=== PATIENT | male | born 1940 | race Caucasian/White ===

== ENCOUNTER 2021-06-27 07:21 | Inpatient (IN) ==
--- NOTE | 2021-06-01 15:37 | PAT Medication Instructions ---
Medication Instructions Date of Service June 01, 2021 Home Medications ascorbic acid (vitamin C) 1,000 mg tablet (Vitamin C) 1 g PO QAM atorvastatin 10 mg tablet 5 mg PO Q OTHER DAY baclofen 10 mg tablet 10 mg PO TID cholecalciferol (vitamin D3) 50 mcg (2,000 unit) tablet (Vitamin D3) 50 mcg PO QAM multivitamin 1 tab PO QAM omega-3 fatty acids 1,000 mg PO QAM pantoprazole 40 mg tablet,delayed release 40 mg PO DAILY PRN PreserVision AREDS-2) 1 tab PO AMPM STOP taking 2 weeks before surgery (or as soon as possible if surgery is within 2 weeks) omega-3 fatty acids 1,000 mg PO QAM PreserVision AREDS-2) 1 tab PO AMPM DO NOT take the morning of surgery ascorbic acid (vitamin C) 1,000 mg tablet (Vitamin C) 1 g PO QAM baclofen 10 mg tablet 10 mg PO TID cholecalciferol (vitamin D3) 50 mcg (2,000 unit) tablet (Vitamin D3) 50 mcg PO QAM multivitamin 1 tab PO QAM Take morning of surgery With a small sip of water, OTHERWISE NOTHING TO EAT OR DRINK AFTER MIDNIGHT: atorvastatin 10 mg tablet 5 mg PO Q OTHER DAY (if scheduled to take day of surgery) pantoprazole 40 mg tablet,delayed release 40 mg PO DAILY PRN (if needed) Take evening before surgery baclofen 10 mg tablet 10 mg PO TID pantoprazole 40 mg tablet,delayed release 40 mg PO DAILY PRN (if needed) Other Notes If you have any questions please call us at [phone] or [phone] or [phone] or [phone]
--- NOTE | 2021-06-06 14:50 | Anesthesiology Consultation ---
Date of Service June 06, 2021 Assessment & Plan (1) Encounter for pre-operative examination: Chart Review Chart Review: Acceptable Risk for Surgery (pending surgeon ordered PCP clearance (06/13), cardio clearance (06/14), and preop Covid testing results ) and Patient seen in Pre Admission Testing - Awaiting surgeon ordered PCP clearance (06/13/21) and cardiac clearance (06/14/21) Per PAT appt on 06/01/21, patient denies any recent travel or large group activities. No known Covid positive exposures or Covid related symptoms. No known Covid infection in the past 90 days. Pt is vaccinated for Covid Preop Covid testing scheduled 06/23/21 = will await results. Educated on importance of self quarantining, social distancing and wearing mask in public for the patient one week prior to surgery and after Covid testing done Teaching & Discussion Pre-Anesthesia Teaching/Discussion Notes: Instructed NPO after midnight before surgery,except medications with 15 cc of water. Medication instructions provided according to the PAT guidelines. History Surgery Operation Date: 06/27/21 07:45 Proposed Procedures p L2-S1 Decompression and Fusion, L3-L4 Hardware Removal, Spinal Cord Monitoring - Todd Mckeon DO Height/Weight Height: 5 ft 11 in Weight: 80 kg Allergies Allergy/AdvReac Type Severity Reaction Status Date / Time No Known Allergies Allergy Verified 06/01/21 12:56 Medications Home Medications Medication Instructions Recorded Confirmed Last Taken ascorbic acid (vitamin C) 1,000 mg 1 g PO QAM 06/01/21 06/01/21 Unknown tablet (Vitamin C) atorvastatin 10 mg tablet 5 mg PO Q OTHER DAY 06/01/21 06/01/21 Unknown baclofen 10 mg tablet 10 mg PO TID 06/01/21 06/01/21 Unknown cholecalciferol (vitamin D3) 50 50 mcg PO QAM 06/01/21 06/01/21 Unknown mcg (2,000 unit) tablet (Vitamin D3) multivitamin 1 tab PO QAM 06/01/21 06/01/21 Unknown omega-3 fatty acids 1,000 mg PO QAM 06/01/21 06/01/21 Unknown pantoprazole 40 mg tablet,delayed 40 mg PO DAILY PRN 06/01/21 06/01/21 Unknown release vit C 250 mg-E 90 mg-zinc 40 1 tab PO AMPM 06/01/21 06/01/21 Unknown mg-copper 1 [id number] chew tablet (PreserVision AREDS-2) Past Medical History Medical History Degenerative disc disease GERD (gastroesophageal reflux disease) Well controlled and stable History of Mohs micrographic surgery for skin cancer Hyperlipidemia Kidney stones Passed on own Prostate cancer 10 yrs ago > with seeds for radiation Exercise / Class Metabolic Activity II 4-5 Yardwork/Stairs/Walk up hill (one flight of stairs - no chest pain or SOB ) Past Surgical History Surgical History History of cardiac cath Over 15 yrs ago - no stents or bypass History of cataract surgery bilat History of colonoscopy History of esophagogastroduodenoscopy (EGD) History of lumbar surgery History of tonsillectomy Past Anesthesia History No Hx of Anesthesia Complications and Other (Family history unknown ) History of PONV No Hx of PONV and No Hx of Motion Sickness Social History Smoking Status: Former smoker Do You Dip or Chew Tobacco: No Smoking End Date: 30 yrs or more Hx Alcohol Use: Yes Alcohol type: wine alcohol intake frequency: 0-2 drinks per day (1 glass/wine ) Hx Substance Use: No substance use type: does not use Review of Systems GUIDO- with significant activity - chronic and stable Hx of snoring - no witnessed apnea- no hx of sleep study Patient denies chest pain, shortness of breath at rest, reflux, cough, wheezing, palpitations. No hx of seizures, stroke, PR. No hx of blood clots or blood transfusions Physical Exam VITALS BP 110/66 P 76 TEMP 97.7 SP02 95% RESP 16 Constitutional no acute distress ENMT Mouth: no TMJ clicking Thyromental Distance: > or= 3.5 Finger Breadths (3.5) Mallampati Class: III Partial dentures on top and bottom Neck + limited neck extension (significant ) Respiratory normal respiratory effort; no respiratory distress Auscultation: lungs clear to auscultation bilaterally; no wheezes Cardiovascular Rate/Rhythm: regular rate and regular rhythm Heart Sounds: no murmur Vessels: no carotid bruit Musculoskeletal Spine: no pain with cervical ROM Extremities: extremities normal to inspection Psychiatric Orientation: alert Lab Results Anesthesia Preop Results Results Anesthesia Widget: WBC 7.24 K/uL (4.8-10.8) 06/06/21 Hgb 14.7 g/dL (14.0-18.0) 06/06/21 Hct 43.8 % (42-52) 06/06/21 Plt 177 K/uL (130-400) 06/06/21 Na 139 mmol/L (136-145) 06/06/21 K 4.2 mmol/L (3.5-5.1) 06/06/21 Cl 105 mmol/L (98-107) 06/06/21 CO2 28 mmol/L (21-32) 06/06/21 BUN 20 mg/dl (6-23) 06/06/21 Creat 0.93 mg/dl (0.6-1.4) 06/06/21 Glucose Level 142 mg/dl (70-99(Fasting)) H 06/06/21 PT 11.1 Seconds (9.0-12.0) 06/06/21 PTT 27.3 Seconds (21.0-31.0) 06/06/21 INR 1.0 (0.9-1.1) 06/06/21 Urine Color Dark Yellow 06/06/21 Urine Appearance Clear (Clear) 06/06/21 Urine pH 5.5 (4.5-7.5) 06/06/21 Urine Specific [place] 1.022 (1.000-1.030) 06/06/21 Urine Protein Negative (Negative) 06/06/21 Urine Glucose (UA) Negative (Negative) 06/06/21 Urine Ketones Trace (Negative) H 06/06/21 Urine Blood Negative (Negative) 06/06/21 Urine Nitrite Negative (Negative) 06/06/21 Urine Bilirubin Negative (Negative) 06/06/21 Urine Urobilinogen Negative (Negative) 06/06/21 Urine Leukocyte Esterase Negative (Negative) 06/06/21 Blood Type A Positive 06/06/21 Antibody Screen NEGATIVE 06/06/21 Testing Electrocardiogram Date: 06/06/21 Findings: + NSR @ (81bpm) RBBB. 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 When compare to EKG from September 04, 2011- no significant change was found per cardio. Chest X-Ray Date: 06/06/21 Findings: + NAD Mild chronic interstitial coarsening. Echocardiogram Date: 11/12/19 EF: 55-60% LV Function: normal Other Findings: no LVH Mitral annual calcification. Mild TR.
[~2021-06-27 07:21] MED LIST: ACETAMINOPHEN 500 MG TAB PO SCH; CeleBREX 200 MG CAP PO SCH; GABAPENTIN 300 MG CAP PO SCH; LR 15ML/HR IV SCH; ceFAZolin 2000MG 2,000 MG/15 ML SYR IV SCH
[2021-06-27] MEDS ORDERED: fentaNYL citrate 100 MCG/2 ML VIAL ONE ×2 (08:32→12:53)
[2021-06-27] MEDS ORDERED: ONDANSETRON INJ 2 MG/ML 2 ML VIAL IV PRN ×2 (08:51→15:13)
[2021-06-27] MEDS ORDERED: ePHEDrine sulfate 50 MG/ML AMP IV PRN (08:51)
[2021-06-27] MEDS ORDERED: ATROPINE SULFATE 0.1 MG/ML 10ML SYR IV PRN (08:51)
[2021-06-27] MEDS ORDERED: PROMETHAZINE HCL 6.25 MG in SODIUM CHLORIDE 0.9% 50 ML IV PRN (08:51)
--- NOTE | 2021-06-27 09:09 | History & Physical Bridge Note ---
Date of Service June 27, 2021 History & Physical Bridge Note I have examined the patient, reviewed the History & Physical and in the interval since the performance of the History & Physical I have noted the following changes of clinical significance: no changes noted
--- NOTE | 2021-06-27 09:10 | History & Physical Report ---
Date of Service June 27, 2021 Assessment & Plan (1) Neurogenic claudication due to lumbar spinal stenosis: Plan: L2-S1 decompression and fusion, hardware removal L3-L4 History of Present Illness Chief Complaint: Back and bilateral leg pain Primary Care Provider: Keith Cai This is an 81-year-old male who presents chronic persistent back and bilateral leg pain. Failing course of nonoperative care is here for surgical invention. Allergies Allergy/AdvReac Type Severity Reaction Status Date / Time No Known Allergies Allergy Verified 06/27/21 07:46 Home Medications Medication Instructions Recorded Confirmed Type ascorbic acid (vitamin C) 1,000 mg 1 g PO QAM 06/01/21 06/27/21 History tablet (Vitamin C) atorvastatin 10 mg tablet 5 mg PO Q OTHER DAY 06/01/21 06/27/21 History baclofen 10 mg tablet 10 mg PO TID 06/01/21 06/27/21 History cholecalciferol (vitamin D3) 50 50 mcg PO QAM 06/01/21 06/27/21 History mcg (2,000 unit) tablet (Vitamin D3) multivitamin 1 tab PO QAM 06/01/21 06/27/21 History omega-3 fatty acids 1,000 mg PO QAM 06/01/21 06/27/21 History pantoprazole 40 mg tablet,delayed 40 mg PO DAILY PRN 06/01/21 06/27/21 History release vit C 250 mg-E 90 mg-zinc 40 1 tab PO AMPM 06/01/21 06/27/21 History mg-copper 1 [id number] chew tablet (PreserVision AREDS-2) Past Med/Surg History Medical History Degenerative disc disease GERD (gastroesophageal reflux disease) Well controlled and stable History of Mohs micrographic surgery for skin cancer Hyperlipidemia Kidney stones Passed on own Prostate cancer 10 yrs ago > with seeds for radiation Surgical History History of cardiac cath Over 15 yrs ago - no stents or bypass History of cataract surgery bilat History of colonoscopy History of esophagogastroduodenoscopy (EGD) History of lumbar surgery History of tonsillectomy Social History Smoking Status: Former smoker Smoking End Date: 30 yrs or more; Second Hand Exposure: No; Do You Dip or Chew Tobacco: No; Tobacco Cessation Education Requested by Patient: No Hx Alcohol Use: Yes Alcohol type: wine Hx Substance Use: No Preferred Language: Greek Communication Ability: Effective Bicycle Racer Required: No Beliefs That Will Affect Care: None Current Living Situation: Spouse Other Information That Helps Us Care for You: No Feels Safe at Home: Yes Safety Concerns: Feels Safe At This Time Assistive Devices: Glasses and Walker Physical Exam Physical Exam: Patient is alert and oriented Heart regular in rhythm Lungs clear Results & Data ([facility]) Vital Signs (Past 12 Hours) Vital Signs Temp Pulse Resp BP Pulse Ox 06/27/21 07:52 36.5 C 71 18 170/93 H 96
[2021-06-27] MEDS ORDERED: ceFAZolin 330 MG/ML 1 GM VIAL ONE (09:33)
[2021-06-27] MEDS ORDERED: BUPIVACAINE/EPINEPHRINE 0.25% 1:200,000 30 ML VIAL ONE (09:33)
[2021-06-27] MEDS ORDERED: ePHEDrine sulfate 50 MG/ML SYR ONE (10:33)
[2021-06-27] MEDS ORDERED: LIDOCAINE 2% 2 ML VIAL/AMP(20MG/ML) INFIL ONE (10:33)
[2021-06-27] MEDS ORDERED: PROPOFOL IV EMULSION 10 MG/ML 20 ML VIAL IV ONE ×2 (10:33→11:36)
[2021-06-27] MEDS ORDERED: ROCURONIUM BROMIDE 10 MG/ML 5 ML VIAL IV ONE ×2 (10:33→11:36)
[2021-06-27] MEDS ORDERED: FLOSEAL HEMOSTATIC MATRIX 10ML TOP ONE (10:44)
[2021-06-27] MEDS ORDERED: PHENYLEPHRINE HCL 10 MG/ML VIAL ONE (11:36)
[2021-06-27] MEDS ORDERED: ONDANSETRON INJ 2 MG/ML 2 ML VIAL ONE (12:44)
[2021-06-27] MEDS ORDERED: DEXAMETHASONE SOD INJ 4 MG/ML VIAL ONE (12:44)
--- NOTE | 2021-06-27 12:52 | Operative Report ---
Post Operative Report Pre & Post Diagnosis Operation Date: 06/27/21 09:10 Pre-Op Diagnosis: Neurogenic claudication due to lumbar spinal stenosis Post-Op Diagnosis: Neurogenic claudication due to lumbar spinal stenosis I identified the patient and participated in the time-out.: Yes Procedure Operation Date: 06/27/21 09:10 Actual Procedures #1 removal of posterior instrumentation L3-L4. #2 exploration of fusion L3-L4. #3 lumbar decompression with bilateral medial facetectomies and foraminotomies L1-L2, L2-L3, L4-5 and L5-S1. #4 posterior spinal fusion L2-S1. #5 placement posterior segmental instrumentation L2-S1. #6 interbody fusion L4-L5 L5-S1. #7 placement of Spira cage 14 x 26 mm at L4-5 and 13 x 26 mm at L5-S1. #8 placement locally harvested morselized autograft in the posterior gutters. #9 placement infuse collagen sponge, master graft in the posterior gutters and I factor interbody space. Surgeon Todd Mckeon, Paste Thinner Daksha Bedolla Estimated Blood Loss 500 Findings Consistent with Post-Op Diagnosis Specimens None Indications This is an 81-year-old male well-known to me the presents above-mentioned diagnosis after failing course of nonoperative care is here for surgical invention. Description of Procedure Patient was met with identified informed consent obtained. Patient was then taken to the operative suite underwent a patient placed in a prone position on the [place] table top Fabian frame. All bony prominences well-padded eyes inspected to ensure no external pressure placed upon the. This point lumbar spine was prepped and draped in a sterile fashion. Sharp dissection with the assistance of Bovie cautery was performed down to and exposing the lamina transverse processes of L2-L3 L4-5 and sacral ala bilaterally. I then proceeded move the hardware bilaterally at L3-L4 explored the fusion mass noting it to be mature and intact. Then performed a complete laminectomy L5 L4 L2 and partial laminectomy L1 including bilateral medial facetectomies and foraminotomies addressing severe spinal stenosis. Pedicle screws then placed in L2 L3-L4-L5 and S1 levels bilaterally with assistance of fluoroscopy and the appropriate sized matt placed. By way of a transfemoral approach on the right complete discectomy of L5-S1 was performed endplates curetted to subcortically bone and a 13 x 26 mm spiral cage filled with I factor tapped in position. Then proceeded to L4-L5 and again by way of entrance foraminal approach and right complete discectomy performed endplates curetted to subcortical mean bone and a 14 x 26 mm spiral cage filled I factor tapped in position. Rods were then locked in final position bilaterally. The transverse processes of L2-L3 L4-5 and sacral ala burred to subcortical bleeding bone. Infuse collagen sponge master graft local autograft was placed in the posterior gutters. 15 round DONTE drain inserted. Incision was then closed with 1 Vicryl to fascia 2-0 Vicryl subcutaneously and 4 Monocryl for final skin closure. Steri-Strip sterile dressings placed. Patient will continue PACU stable condition. Please note spinal cord monitoring was utilized at the procedure no changes noted. Lastly Daksha Bedolla was present at the entire surgery while the patient positioning complex portions of the surgery and fascial closure. I attest to the content of the Intraoperative Record and any orders documented therein. Any exceptions are noted below.
--- NOTE | 2021-06-27 13:08 | Fluoroscopy Report ---
FL lumbar spine 2-3V HISTORY: 81 years-old Male L2-S1 DECOMP/FUSION L3-L4 HARDWARE REMOVAL COMPARISON: Lumbar spine MRI 09/21/2011 TECHNIQUE: 3 spot fluoroscopic images of the lumbar spine were obtained utilizing 32.7 seconds of flu oroscopy time FINDINGS: Posterior interbody matt and screw fusion hardware is noted extending from L2-S1 with L3-L4, L4-L5 and L5-S1 discectomy changes. The hardware appears to be intact. Alignment appears satisfactory. No unex pected opaque foreign body identified. IMPRESSION: Fluoroscopic assistance as above. ACT 112: Negative or not required by law. The above report was generated using voice recognition software. It may contain grammatical, syntax o r spelling errors. Electronically signed by: Stef Perez M.D. 06/27/2021 1:05 PM
[2021-06-27] MEDS: fentaNYL citrate 100 MCG/2 ML VIAL IV PRN ×2 (13:47→13:53)
[2021-06-27] MEDS: HYDROmorphone INJ 2 MG/ML SYR/VIAL IV PRN ×2 (14:09→14:14)
[2021-06-27] MEDS ORDERED: SOD PHOSPHATE/SOD BIPHOSPHATE ENEMA 132 ML BTL PR PRN (15:13)
[2021-06-27] MEDS ORDERED: PROMETHAZINE HCL 12.5 MG in SODIUM CHLORIDE 0.9% 50 ML IV PRN (15:13)
[2021-06-27] MEDS ORDERED: LORazepam 0.5 MG TAB PO PRN (15:13)
[2021-06-27] MEDS ORDERED: bisacodyL 10 MG SUPP PR PRN (15:13)
[2021-06-27] MEDS ORDERED: hydrOXYzine HCl 25 MG TAB PO PRN (15:13)
[2021-06-27] MEDS ORDERED: diphenhydrAMINE Capsule 25 MG CAP PO PRN (15:13)
[2021-06-27] MEDS ORDERED: METOCLOPRAMIDE HCL INJ 5 MG/ML 2 ML VIAL IV PRN (15:13)
[2021-06-27] MEDS ORDERED: FAMOTIDINE 20 MG TAB PO PRN (15:13)
[2021-06-27] MEDS ORDERED: LORazepam 2 MG/1 ML VIAL IV PRN (15:13)
[2021-06-27] MEDS ORDERED: NALOXONE HCL 0.4 MG/1 ML VIAL/CARP IV PRN (15:13)
[2021-06-27] MEDS ORDERED: DO NOT ADMINISTER FLU VACCINE PRN (15:13)
[2021-06-27] MEDS ORDERED: ONDANSETRON 4 MG OD TAB PO PRN (15:13)
[2021-06-27] MEDS ORDERED: HYDROmorphone INJ 1 MG/ML SYRINGE IV PRN (15:13)
[2021-06-27] MEDS ORDERED: PANTOprazole 40 MG TAB PO PRN (15:13)
[2021-06-27] MEDS ORDERED: HYDROmorphone INJ 0.5 MG/0.5 ML SYR IV PRN (15:13)
[2021-06-27] MEDS ORDERED: DO NOT ADMINISTER PNEUMOCOCCAL VACCINE PRN (15:13)
[2021-06-27] MEDS ORDERED: traMADol HCL 50 MG TABLET PO PRN (15:13)
[2021-06-27] MEDS ORDERED: ACETAMINOPHEN 1,000 MG/100 ML VIAL IV PRN (15:13)
[2021-06-27] MEDS: LACTATED RINGER'S 1,000 ML IV SCH (15:44)
--- NOTE | 2021-06-27 15:52 | Consultation ---
Date of Consultation June 27, 2021 Assessment & Plan (1) Neurogenic claudication due to lumbar spinal stenosis: (2) Hyperlipidemia: (3) GERD (gastroesophageal reflux disease): 81 yr old M with hx of HLD, GERD, known RBBB who underwent elective lumbar procedure today: Neurogenic claudication due to lumbar spinal stenosis Actual Procedures #1 removal of posterior instrumentation L3-L4. #2 exploration of fusion L3-L4. #3 lumbar decompression with bilateral medial facetectomies and foraminotomies L1-L2, L2-L3, L4-5 and L5-S1. #4 posterior spinal fusion L2-S1. #5 placement posterior segmental instrumentation L2-S1. #6 interbody fusion L4-L5 L5-S1. #7 placement of Spira cage 14 x 26 mm at L4-5 and 13 x 26 mm at L5-S1. #8 placement locally harvested morselized autograft in the posterior gutters. #9 placement infuse collagen sponge, master graft in the posterior gutters and I factor interbody space EBL 500ml pain/wound management per surgery activity and therapy as directed by ortho monitor hgb, pre op 14.7 encourage incentive spirometry and wean O2 at able Hypotension bp pt post op 90s/60s, per at bedside typically 112/70 not on any BP meds at home HR 80s during my eval monitor closely, continue IVF asymptomatic HLD continue statin Gerd continue PPI Chronic RBBB no underlying CAD, hx of cath DVT ppx: per primary PCP: Keith Cai MD, [facility] FULL CODE Pt was seen and examined in collaboration with Dr. Springer, please see addendum Supervising Physician Co-Signing Physician Notes I have seen and examined the patient and have discussed the case with the provider above. I agree with the assessment and plan as stated. 81 yo M presents for elective L2-S1 decompression and fusion with Dr. Mckeon performed this morning. His pain is controlled and he denies nausea chest pain or shortness of breath. Denies pain or sensation issues in his feet. Post operative blood pressure was 83/44 and he was ordered a 500cc bolus. Repeat BP at bedside was 98/70 and he is asymptomatic. On exam he is not in distress, lungs are clear to auscultation throughout, cardiac exam reveals S1/2 heard without murmurs, gallops or rubs and abdomen is soft, NTND. He has no peripheral edema and extremities and warm and well perfu sed. Sensation is intact in lower extremities and DP pulses are 2+ bilaterally. He can wiggle toes bilaterally on command. Suspect the post operative hypotension and 2L NC oxygen supplementation is a result of anesthesia given today and will resolve with time and support. Will continue to monitor vitals signs every 4 hours throughout the night. He also has been taking Baclofen at home but not regularly, and is fine with holding this now. He understands, this can be added back to his regimen if he desires. Thank you for this consultation. We will continue to follow his hospital course with daily check-ins. DO Gian History of Present Illness Requesting Physician: Dr. Mckeon Reason for Consultation: Postop medical management Attending Physician: Todd Mckeon DO History of Present Illness This is an 81-year-old male who has a significant past medical history of prostate cancer status post brachytherapy, known RBBB, HLD, GERD who presents for elective lumbar procedure by Dr. Mckeon. His is at bedside. Postoperatively he complains of minimal low back discomfort, but denies any radicular symptoms. He denies any fever, chills, sweats, lighth eadedness, dizziness, chest pain, shortness of breath, nausea, vomiting, abdominal pain. He currently has a Gonzalez catheter in place. He denies any tobacco use. Patient's states they drink approximately 2 ounces of wine every night. He does have history of hyperlipidemia for which he takes atorvastatin for. He also has GERD for which he takes a PPI as needed. This is mostly been well controlled as of late. Allergies Allergy/AdvReac Type Severity Reaction Status Date / Time No Known Allergies Allergy Verified 06/27/21 07:46 Home Medications Medication Instructions Recorded Confirmed Type ascorbic acid (vitamin C) 1,000 mg 1 g PO QAM 06/01/21 06/27/21 History tablet (Vitamin C) atorvastatin 10 mg tablet 5 mg PO Q OTHER DAY 06/01/21 06/27/21 History baclofen 10 mg tablet 10 mg PO TID 06/01/21 06/27/21 History cholecalciferol (vitamin D3) 50 50 mcg PO QAM 06/01/21 06/27/21 History mcg (2,000 unit) tablet (Vitamin D3) multivitamin 1 tab PO QAM 06/01/21 06/27/21 History omega-3 fatty acids 1,000 mg PO QAM 06/01/21 06/27/21 History pantoprazole 40 mg tablet,delayed 40 mg PO DAILY PRN 06/01/21 06/27/21 History release vit C 250 mg-E 90 mg-zinc 40 1 tab PO AMPM 06/01/21 06/27/21 History mg-copper 1 [id number] chew tablet (PreserVision AREDS-2) Patient History Medical History (Updated 06/27/21 @ 16:08 by Shari Truong PA-C) Degenerative disc disease GERD (gastroesophageal reflux disease) Well controlled and stable History of Mohs micrographic surgery for skin cancer Hyperlipidemia Kidney stones Passed on own Prostate cancer 10 yrs ago > with seeds for radiation Surgical History History of cardiac cath Over 15 yrs ago - no stents or bypass History of cataract surgery bilat History of colonoscopy History of esophagogastroduodenoscopy (EGD) History of lumbar surgery History of tonsillectomy Family History (Updated 06/27/21 @ 15:48 by Shari Truong PA-C) Father Prostate cancer Hypertension Mother Breast cancer Social History Smoking Status: Never smoker Smoking End Date: 30 yrs or more; Second Hand Exposure: No; Do You Dip or Chew Tobacco: No; Tobacco Cessation Education Requested by Patient: No Hx Alcohol Use: No Hx Substance Use: No Preferred Language: Cambodian Communication Ability: Effective Sales Development Associate Required: No Beliefs That Will Affect Care: None Current Living Situation: Spouse Other Information That Helps Us Care for You: No Feels Safe at Home: Yes Safety Concerns: Feels Safe At This Time Assistive Devices: Denture - Upper, Glasses and Walker Review of Systems Review of Systems: All systems reviewed & are unremarkable except as noted in HPI & below Physical Exam Physical Exam: Constitutional: Elderly, alert, male, lying in bed,WD/WN, vitals as above, NAD, sitting up in bed, pleasant, conversing easily Head: Normocephalic, Atraumatic Eyes: PERRL, conjunctivae normal, anicteric sclerae ENMT: external ear and nose normal, oropharynx normal Neck: trachea midline, no thyromegaly normal visual inspection Respiratory: normal respiratory effort, lungs clear to auscultation, no wheeze, rales, rhonchi. On 2 L of O2 via NC, normal insp/exp effort, no accessory muscle use Cardiovascular: RRR, no murmur, no edema, SCD/teds in place vessels: no JVD or carotid bruit Chest: normal inspection of chest Abdomen: normal bowel sounds, soft, nontender, no hepatosplenomegaly Musculoskeletal: no cyanosis or clubbing, extremities motor strength 5/5 Skin: no rashes, warm and dry normal turgor Neurologic: PERRL, EOMI, accommodation nl, no face palsy, no dysarthria CN's II-XI intact bilaterally and moves all extremities Psychiatric: A+Ox3, euthymic affect Lymphatic: no cervical or axillary lymphadenopathy : Gonzalez catheter draining yellow urine [facility] & [facility]) Vital Signs (Past 12 Hours) Vital Signs Temp Pulse Pulse Resp BP Pulse Ox 06/27/21 15:39 36.4 C L 95 H 16 96/56 L 93 06/27/21 15:23 36.4 C L 86 16 97/58 L 93 06/27/21 14:45 75 14 106/52 L 96 06/27/21 14:35 78 14 103/53 L 93 06/27/21 14:25 36.2 C L 79 14 99/54 L 94 06/27/21 14:15 80 21 98/53 L 94 06/27/21 14:05 62 14 108/63 94 06/27/21 13:55 74 15 112/60 95 06/27/21 13:45 62 14 126/65 97 06/27/21 13:35 78 20 109/69 94 06/27/21 13:25 75 17 113/61 96 06/27/21 13:15 68 16 95/54 L 96 06/27/21 13:08 36.2 C L 75 18 84/50 L 100 06/27/21 07:52 36.5 C 71 18 170/93 H 96 Laboratory Results Preop lab work 06/06/2021 WBC 7.24, H&H 14.7 and 43.8 Sodium 139, K4.2, creatinine 1.93, glucose 1.2, urinalysis negative, SARS-CoV-2 negative Diagnostic Findings Lumbar Spine X-Ray 06/27/21 09:10 FL lumbar spine 2-3V HISTORY: 81 years-old Male L2-S1 DECOMP/FUSION L3-L4 HARDWARE REMOVAL COMPARISON: Lumbar spine MRI 09/21/2011 TECHNIQUE: 3 spot fluoroscopic images of the lumbar spine were obtained utilizing 32.7 seconds of fluoroscopy time FINDINGS: Posterior interbody matt and screw fusion hardware is noted extending from L2-S1 with L3-L4, L4-L5 and L5-S1 discectomy changes. The hardware appears to be intact. Alignment appears satisfactory. No unexpected opaque foreign body identified. IMPRESSION: Fluoroscopic assistance as above. ACT 112: Negative or not required by law. The above report was generated using voice recognition software. It may contain grammatical, syntax or spelling errors. revealed no acute process Medications Administered Current Inpatient Medications Acetaminophen (Acetaminophen 500 Mg Tab) 1,000 mg PO PREOP PHILL Stop: 06/27/21 18:00 Last Admin: 06/27/21 08:10 Dose: 1,000 mg Documented by: Acetaminophen (Acetaminophen 500 Mg Tab) 1,000 mg PO Q8H PRN PRN Reason: MILD Pain Scale 1,2,3 & Pre PT Stop: 07/27/21 15:12 Al Hydrox/Mg Hydrox/Simethicone (Aluminum/Magnesium Susp 30 Ml Udc) 30 ml PO Q6H PRN PRN Reason: Dyspepsia Stop: 07/27/21 15:12 Ascorbic Acid (Ascorbic Acid 500 Mg Tab) 1,000 mg PO QAM PHILL Stop: 07/28/21 08:59 Atorvastatin Calcium (Atorvastatin 10 Mg Tab) 5 mg PO Q2D@2100 PHILL Stop: 07/27/21 20:59 Atropine Sulfate (Atropine Sulfate 0.1 Mg/Ml 10ml Syr) 0.5 mg IV Q1M PRN PRN Reason: PACU Use-HR<40 &/or Bradycardi Stop: 06/27/21 16:51 Bisacodyl (Bisacodyl 10 Mg Supp) 10 mg OH DAILY PRN PRN Reason: Constipation Stop: 07/27/21 15:12 Celecoxib (Celebrex 200 Mg Cap) 200 mg PO PREOP PHILL Stop: 06/27/21 18:00 Last Admin: 06/27/21 08:11 Dose: 200 mg Documented by: Diphenhydramine HCl (Diphenhydramine Capsule 25 Mg Cap) 25 mg PO Q6H PRN PRN Reason: Allergic Rhinitis/Insomnia Stop: 07/27/21 15:12 Ephedrine Sulfate (Ephedrine Sulfate 50 Mg/Ml Amp) 5 mg IV Q5M PRN PRN Reason: PACU Use Only-SBP<90 mmHg Stop: 06/27/21 16:51 Famotidine (Famotidine 20 Mg Tab) 20 mg PO Q12H PRN PRN Reason: Dyspepsia Stop: 07/27/21 15:12 Fentanyl Citrate (Fentanyl Citrate 100 Mcg/2 Ml Vial) 50 mcg IV Q5M PRN PRN Reason: PACU Use Only-Pain Stop: 06/27/21 16:51 Last Admin: 06/27/21 13:53 Dose: 50 mcg Documented by: Gabapentin (Gabapentin 300 Mg Cap) 300 mg PO PREOP PHILL Stop: 06/27/21 18:00 Last Admin: 06/27/21 08:11 Dose: 300 mg Documented by: Hydromorphone HCl (Hydromorphone Inj 2 Mg/Ml Syr/Vial) 0.5 mg IV Q5M PRN PRN Reason: PACU Use Only-Pain Stop: 06/27/21 16:51 Last Admin: 06/27/21 14:14 Dose: 0.5 mg Documented by: Hydromorphone HCl (Hydromorphone Inj 0.5 Mg/0.5 Ml Syr) 0.5 mg IV Q3H PRN PRN Reason: MODERATE Pain (Scale 4,5,6) & Pre PT Stop: 07/11/21 15:12 Hydromorphone HCl (Hydromorphone Inj 1 Mg/Ml Syringe) 1 mg IV Q3H PRN PRN Reason: SEVERE Pain (Scale 7,8,9,10) Stop: 07/11/21 15:12 Hydroxyzine HCl (Hydroxyzine Hcl 25 Mg Tab) 25 mg PO Q8H PRN PRN Reason: Anxiety Stop: 07/27/21 15:12 Cefazolin Sodium (Ancef 2000mg) 2,000 mg in 15 mls @ 3.75 mls/min IV PREOP PHILL; Protocol Stop: 06/27/21 18:00 Last Admin: 06/27/21 09:49 Dose: 3.75 mls/min Documented by: Lactated Ringer's (Lr) 1,000 mls @ 15 mls/hr IV .Q24H PHILL Stop: 06/28/21 05:59 Last Infusion: 06/27/21 09:49 Dose: Infused Documented by: Promethazine HCl 6.25 mg/ (Sodium Chloride) 50.25 mls @ 204 mls/hr IV ONCE PRN PRN Reason: PACU Use Only-Nausea/Vomiting Stop: 06/27/21 16:51 Cefazolin Sodium (Ancef 2000mg) 2,000 mg in 15 mls @ 3.75 mls/min IV Q8H PHILL; Protocol Stop: 06/28/21 05:03 Lactated Ringer's (Lr) 1,000 mls @ 100 mls/hr IV .Q10H PHILL Stop: 07/27/21 15:12 Last Admin: 06/27/21 15:44 Dose: 100 mls/hr Documented by: Promethazine HCl 12.5 mg/ (Sodium Chloride) 50.5 mls @ 202 mls/hr IV Q6H PRN PRN Reason: Nausea &/or Vomiting Stop: 07/27/21 15:12 Acetaminophen (Ofirmev) 1,000 mg in 100 mls @ 400 mls/hr IV Q8H PRN PRN Reason: Pain Rating 1-3 & Pre PT Stop: 06/30/21 15:12 Dexamethasone 6 mg/ Syringe 1.5 mls @ 1 mls/min IV DAILY PHILL Stop: 06/30/21 09:02 Influenza Virus Vaccine Quadrival (Do Not Administer Flu Vaccine) 1 ea N/A PRN PRN PRN Reason: Notification Stop: 07/27/21 15:12 Lorazepam (Lorazepam 0.5 Mg Tab) 0.5 mg PO Q8H PRN PRN Reason: Sedation/Anxiety Stop: 07/27/21 15:12 Lorazepam (Lorazepam 2 Mg/1 Ml Vial) 0.5 mg IV Q8H PRN PRN Reason: Sedation/Anxiety Stop: 07/27/21 15:12 Magnesium Hydroxide (Magnesium Hydroxide Susp 30 Ml Udc) 30 ml PO Q24H PRN PRN Reason: Constipation Stop: 07/27/21 15:12 Metoclopramide HCl (Metoclopramide Hcl Inj 5 Mg/Ml 2 Ml Vial) 10 mg IV Q6H PRN PRN Reason: Nausea &/or Vomiting Stop: 07/27/21 15:12 Multivitamins (Multivitamin Tab) 1 tab PO QAM [facility] Stop: 07/28/21 08:59 Multivitamins/Minerals (Cerovite Adv Formula Tab) 1 tab PO DAILY PHILL Stop: 07/27/21 16:59 Naloxone HCl (Naloxone Hcl 0.4 Mg/1 Ml Vial/Carp) 0.1 mg IV Q5M PRN PRN Reason: Oversedation/Resp depression Stop: 07/27/21 15:12 Ondansetron HCl (Ondansetron Inj 2 Mg/Ml 2 Ml Vial) 4 mg IV ONCE PRN PRN Reason: PACU Use Only-Nausea/Vomiting Stop: 06/27/21 16:51 Ondansetron HCl (Ondansetron Inj 2 Mg/Ml 2 Ml Vial) 4 mg IV Q6H PRN PRN Reason: Nausea &/or Vomiting Stop: 07/27/21 15:12 Ondansetron HCl (Ondansetron 4 Mg Od Tab) 4 mg PO Q6H PRN PRN Reason: Nausea Stop: 07/27/21 15:12 Oxycodone HCl (Oxycodone Hcl Ir 5 Mg Tab (Immediate Release)) 5 - 10 mg PO Q4H PRN PRN Reason: Pain & Pre PT Stop: 07/11/21 15:12 Pantoprazole Sodium (Pantoprazole 40 Mg Tab) 40 mg PO DAILY PRN PRN Reason: Acid Reflux Stop: 07/27/21 15:12 Pneumococcal Polyvalent Vaccine (Do Not Administer Pneumococcal Vaccine) 1 ea N/A PRN PRN PRN Reason: Notification Stop: 07/27/21 15:12 Polyethylene Glycol (Polyethylene (Miralax) 17 Gm Pack) 17 gm PO Q6 PHILL Stop: 07/28/21 05:59 Senna/Docusate Sodium (Docusate Sodium/Senna 50/8.6mg Tab) 2 tab PO HS PHILL Stop: 07/27/21 20:59 Sodium Biphosphate/Sodium Phosphate (Sod Phosphate/Sod Biphosphate Enema 132 Ml Btl) 132 ml OH ONE PRN PRN Reason: Constipation Stop: 07/27/21 15:12 Tramadol HCl (Tramadol Hcl 50 Mg Tablet) 50 - 100 mg PO Q4H PRN PRN Reason: Moderate-Severe pain & Pre PT Stop: 07/27/21 15:12 Vitamin D (Cholecalciferol 1,000 Units 25 Mcg Tab) 2,000 units PO QAM [facility] Stop: 07/28/21 08:59 ECG Rate (beats per minute): 81 Rhythm: normal sinus Findings: + RBBB
--- NOTE | 2021-06-27 16:00 | Anesthesiology Progress Note ---
Date of Service June 27, 2021 Anesthesia Post Procedure Vital Signs Vital Signs: Temp Pulse Pulse Resp BP Pulse Ox 06/27/21 15:39 36.4 C L 95 H 16 96/56 L 93 06/27/21 15:23 36.4 C L 86 16 97/58 L 93 06/27/21 14:45 75 14 106/52 L 96 06/27/21 14:35 78 14 103/53 L 93 06/27/21 14:25 36.2 C L 79 14 99/54 L 94 06/27/21 14:15 80 21 98/53 L 94 06/27/21 14:05 62 14 108/63 94 06/27/21 13:55 74 15 112/60 95 06/27/21 13:45 62 14 126/65 97 06/27/21 13:35 78 20 109/69 94 06/27/21 13:25 75 17 113/61 96 06/27/21 13:15 68 16 95/54 L 96 06/27/21 13:08 36.2 C L 75 18 84/50 L 100 06/27/21 07:52 36.5 C 71 18 170/93 H 96 Pain Intensity Back: Pain Intensity: 4 Transfer of Care Handoff Completed per policy Notes Mental Status: alert / awake / arousable Patient Amnestic to Procedure: Yes Nausea / Vomiting: adequately controlled Pain: adequately controlled Airway Patency, RR, SpO2: stable & adequate BP & HR: stable & adequate Hydration State: stable & adequate Anesthetic Complications: no major complications apparent
[2021-06-27] MEDS ORDERED: SODIUM CHLORIDE 0.9% 500 ML IV ONE (17:15)
[2021-06-27 17:38] LABS: Hematocrit (blood only) 36.6 % (42-52); Hemoglobin 12.4 g/dL (14.0-18.0)
[2021-06-27] MEDS: CEROVITE ADV FORMULA TAB PO SCH (17:45)
[2021-06-27] MEDS: ceFAZolin 2000MG 2,000 MG/15 ML SYR IV SCH (20:46)
[2021-06-27] MEDS: DOCUSATE SODIUM/SENNA 50/8.6MG TAB PO SCH (20:46)
[2021-06-27] MEDS: ATORVASTATIN 10 MG TAB PO SCH (20:47)
[2021-06-28] MEDS: LACTATED RINGER'S 1,000 ML IV SCH (02:10)
[2021-06-28] MEDS: ceFAZolin 2000MG 2,000 MG/15 ML SYR IV SCH (04:24)
[2021-06-28] MEDS: POLYETHYLENE (MIRALAX) 17 GM PACK PO SCH ×4 (04:24→22:54)
[2021-06-28] MEDS: ALUMINUM/MAGNESIUM SUSP 30 ML UDC PO PRN ×2 (04:24→12:50)
[2021-06-28] MEDS: oxyCODONE HCL IR 5 MG TAB (IMMEDIATE RELEASE) PO PRN (04:28)
[2021-06-28 08:32] LABS: Basophils # (auto) 0.01 K/uL (0-0.2); Basophils % (auto) 0.1 %; Hematocrit (blood only) 34.7 % (42-52); Hemoglobin 11.6 g/dL (14.0-18.0); Immature Granulocytes # (auto) 0.03 K/uL (0.00-0.02); Immature Granulocytes % (auto) 0.2 %; Lymphocytes # (auto) 1.56 K/uL (1.2-3.4); Lymphocytes % (auto) 10.3 %; Mean Corpuscular Hemoglobin 31.7 pg (25-34); Mean Corpuscular Hgb Conc 33.4 g/dL (32-36); Mean Corpuscular Volume 94.8 fL (80-100); Mean Platelet Volume 9.8 fL (7.4-10.4); Monocytes # (auto) 1.57 K/uL (0.11-0.59); Monocytes % (auto) 10.3 %; Neutrophils # (auto) 12.03 K/uL (1.4-6.5); Neutrophils % (auto) 79.1 %; Platelet Count 173 K/uL (130-400); RDW Coefficient of Variation 13.3 % (11.5-14.5); RDW Standard Deviation 46.1 fL (36.4-46.3); Red Blood Count 3.66 M/uL (4.7-6.1)
[2021-06-28] MEDS: CEROVITE ADV FORMULA TAB PO SCH (08:36)
[2021-06-28] MEDS: ASCORBIC ACID 500 MG TAB PO SCH (08:36)
[2021-06-28] MEDS: MULTIVITAMIN TAB PO SCH (08:36)
[2021-06-28] MEDS: CHOLECALCIFEROL 1,000 UNITS 25 MCG TAB PO SCH (08:36)
[2021-06-28] MEDS: dexAMETHasone 6 MG in SYRINGE 0 ML IV SCH (08:36)
[2021-06-28 08:59] LABS: BUN Creatinine Ratio 18.7 (10-20); Calcium 8.7 mg/dl (8.5-10.1); Creatinine Clr Calc Pharmacy 58.6 ml/min; Est GFR (African American) 75.6 ml/min; Est GFR (Non-African American) 65.2 ml/min; Potassium 4.1 mmol/L (3.5-5.1)
--- NOTE | 2021-06-28 13:50 | Hospitalist Progress Note ---
Date of Service June 28, 2021 Assessment & Plan (1) Neurogenic claudication due to lumbar spinal stenosis: (2) Hyperlipidemia: (3) GERD (gastroesophageal reflux disease): Plan: 81 yr old M with hx of HLD, GERD, known RBBB who underwent elective lumbar procedure today: #. Neurogenic claudication due to lumbar spinal stenosis #. Acute Blood loss anemia: likely 2/2 Surgery Actual Procedures on 06/27/[address] Mckeon #1 removal of posterior instrumentation L3-L4. #2 exploration of fusion L3-L4. #3 lumbar decompression with bilateral medial facetectomies and foraminotomies L1-L2, L2-L3, L4-5 and L5-S1. #4 posterior spinal fusion L2-S1. #5 placement posterior segmental instrumentation L2-S1. #6 interbody fusion L4-L5 L5-S1. #7 placement of Spira cage 14 x 26 mm at L4-5 and 13 x 26 mm at L5-S1. #8 placement locally harvested morselized autograft in the posterior gutters. #9 placement infuse collagen sponge, master graft in the posterior gutters and I factor interbody space EBL 500ml pain/wound management per surgery activity and therapy as directed by ortho monitor hgb, pre op 14.7 , Post op Hb 11.6, monitor Hb daily and as needed. encourage incentive spirometry and wean O2 at able #. Hypotension Postoperatively noted hypotensive, patient improving on blood pressure. Continue to monitor. #. Leukocytosis: Likely secondary to steroid use. HLD continue statin Gerd continue PPI Chronic RBBB no underlying CAD, hx of cath DVT ppx: per primary PCP: Keith Cai MD, [facility] FULL CODE Admission and Anticipated Discharge Date Admission Date: June 27, 2021 Subjective Patient seen and examined at bedside as a follow-up of Neurogenic claudication due to lumbar spinal stenosis s/p decompression and fusion by Dr. Mckeon on 06/27/21. Patient was sitting up in chair, on room air, NAD, no new acute events overnight. Patient reports improvement in his radiating pain. Patient reports low back pain under control. Clean dressing noted without soakage, DONTE drain in situ with moderate serosanguineous collection. Patient reports eating okay, moving gas, has not moved bowel. Patient denies any fever/headache/chills/chest pain/cough/back pain/other review of symptoms. Physical Exam Physical Exam: GENERAL: Alert and oriented x3. NAD, on RA. HEENT: No pallor, no icterus. Pupils equal, round and reactive to light. Oral mucosa moist. NECK: No JVD, no neck masses. HEART: S1 and S2 heard. Regular rate and rhythm. No murmur, no gallop. RESPIRATORY SYSTEM: Normal AP diameter. No accessory muscle use. No wheezing, no crackles. ABDOMEN: Soft, bowel sounds present, nontender, no distention. CENTRAL NERVOUS SYSTEM: No facial droop. Speech is clear. Obeys simple commands. Moves extremities. EXTREMITIES: No edema, no erythema seen. Low back with clean dressing, DONTE drain in situ with moderate serosanguineous collection. Results & Data Results & Data ([facility]) Vital Signs (Past 12 Hours) Vital Signs Temp Pulse Resp BP Pulse Ox 06/28/21 11:52 36.5 C 78 18 125/67 91 06/28/21 07:53 36.5 C 70 16 98/61 L 96 06/28/21 02:05 36.7 C 76 16 105/61 95
[2021-06-28] MEDS: ACETAMINOPHEN 500 MG TAB PO PRN (20:10)
[2021-06-28] MEDS: MAGNESIUM HYDROXIDE SUSP 30 ML UDC PO PRN (20:10)
[2021-06-28] MEDS: DOCUSATE SODIUM/SENNA 50/8.6MG TAB PO SCH (20:11)
[2021-06-29] MEDS: POLYETHYLENE (MIRALAX) 17 GM PACK PO SCH ×4 (05:27→23:14)
[2021-06-29] MEDS: ACETAMINOPHEN 500 MG TAB PO PRN (05:28)
[2021-06-29] MEDS: ASCORBIC ACID 500 MG TAB PO SCH (08:52)
[2021-06-29 08:53] LABS: Hematocrit (blood only) 30.1 % (42-52); Hemoglobin 9.9 g/dL (14.0-18.0); Mean Corpuscular Hemoglobin 31.2 pg (25-34); Mean Corpuscular Hgb Conc 32.9 g/dL (32-36); Mean Platelet Volume 9.9 fL (7.4-10.4); Platelet Count 145 K/uL (130-400); RDW Coefficient of Variation 13.2 % (11.5-14.5); RDW Standard Deviation 46.2 fL (36.4-46.3); Red Blood Count 3.17 M/uL (4.7-6.1); White Blood Count 12.11 K/uL (4.8-10.8)
[2021-06-29] MEDS: CHOLECALCIFEROL 1,000 UNITS 25 MCG TAB PO SCH (08:53)
[2021-06-29] MEDS: MULTIVITAMIN TAB PO SCH (08:53)
[2021-06-29] MEDS: CEROVITE ADV FORMULA TAB PO SCH (08:53)
[2021-06-29] MEDS: dexAMETHasone 6 MG in SYRINGE 0 ML IV SCH (08:53)
--- NOTE | 2021-06-29 08:54 | Orthopedic Progress Note ---
Date of Service June 29, 2021 Assessment & Plan (1) Neurogenic claudication due to lumbar spinal stenosis: Plan: At this time continue physical therapy monitor DONTE output hopefully discharge home in the next few days. Admission and Anticipated Discharge Date Admission Date: June 27, 2021 Subjective Patient complaining of some back pain and leg numbness earlier today. His pain is improved since getting up. Physical Exam Physical Exam: On physical exam he is in a chair at the bedside. He appears comfortable. Strength testing. Results & Data ([facility]) Vital Signs (Past 12 Hours) Vital Signs Temp Pulse Resp BP BP Pulse Ox 06/29/21 08:22 36.6 C 63 16 125/70 93 06/28/21 22:33 36.6 C 85 16 116/63 93
--- NOTE | 2021-06-29 15:54 | Hospitalist Progress Note ---
Date of Service June 29, 2021 Assessment & Plan (1) Neurogenic claudication due to lumbar spinal stenosis: (2) Hyperlipidemia: (3) GERD (gastroesophageal reflux disease): Plan: 81 yr old M with hx of HLD, GERD, known RBBB who underwent elective lumbar procedure today: #. Neurogenic claudication due to lumbar spinal stenosis #. Acute Blood loss anemia: likely post operative Actual Procedures on 06/27/[address] Mckeon #1 removal of posterior instrumentation L3-L4. #2 exploration of fusion L3-L4. #3 lumbar decompression with bilateral medial facetectomies and foraminotomies L1-L2, L2-L3, L4-5 and L5-S1. #4 posterior spinal fusion L2-S1. #5 placement posterior segmental instrumentation L2-S1. #6 interbody fusion L4-L5 L5-S1. #7 placement of Spira cage 14 x 26 mm at L4-5 and 13 x 26 mm at L5-S1. #8 placement locally harvested morselized autograft in the posterior gutters. #9 placement infuse collagen sponge, master graft in the posterior gutters and I factor interbody space EBL 500ml pain/wound management per surgery activity and therapy as directed by ortho monitor hgb, pre op 14.7 , Post op Hb 11.6, monitor Hb daily and as needed. encourage incentive spirometry and wean O2 at able #. Hypotension - post operative, resolved. #. Leukocytosis: Likely secondary to steroid use. HLD continue statin Gerd continue PPI Chronic RBBB no underlying CAD, hx of cath DVT ppx: per primary PCP: Keith Cai MD, [facility] FULL CODE Dispo:Per Ortho Admission and Anticipated Discharge Date Admission Date: June 27, 2021 Subjective Patient seen and examined at bedside as a follow-up ofNeurogenic claudication due to lumbar spinal stenosiss/p decompression and fusion by Dr. Mckeon on 06/27/21. Patient was sitting up in chair, on room air, NAD, no new acute events overnight. Patient reports improvement in his radiating pain and pain at operative site. Clean dressing noted without soakage, DONTE drain in situ with some serosanguineous collection. Patient reports eating okay, moving gas, has not moved bowel. Patient denies any fever/headache/chills/chest pain/cough/back pain/other review of symptoms. Physical Exam Physical Exam: GENERAL: Alert and oriented x3. NAD, on RA. HEENT: No pallor, no icterus. Pupils equal, round and reactive to light. Oral mucosa moist. NECK: No JVD, no neck masses. HEART: S1 and S2 heard. Regular rate and rhythm. No murmur, no gallop. RESPIRATORY SYSTEM: Normal AP diameter. No accessory muscle use. No wheezing, no crackles. ABDOMEN: Soft, bowel sounds present, nontender, no distention. CENTRAL NERVOUS SYSTEM: No facial droop. Speech is clear. Obeys simple c ommands. Moves extremities. EXTREMITIES: No edema, no erythema seen. Low back with clean dressing, DONTE drain in situ with moderate serosanguineous collection. Results & Data Results & Data ([facility]) Vital Signs (Past 12 Hours) Vital Signs Temp Pulse Resp BP Pulse Ox 06/29/21 15:37 36.6 C 68 16 129/70 93 06/29/21 08:22 36.6 C 63 16 125/70 93
[2021-06-29] MEDS: DOCUSATE SODIUM/SENNA 50/8.6MG TAB PO SCH (19:40)
[2021-06-29] MEDS: MAGNESIUM HYDROXIDE SUSP 30 ML UDC PO PRN (19:40)
[2021-06-29] MEDS: ATORVASTATIN 10 MG TAB PO SCH (19:41)
[2021-06-30] MEDS: POLYETHYLENE (MIRALAX) 17 GM PACK PO SCH ×2 (05:33→12:57)
[2021-06-30] MEDS: oxyCODONE HCL IR 5 MG TAB (IMMEDIATE RELEASE) PO PRN (07:24)
[2021-06-30 08:10] LABS: Hematocrit (blood only) 29.7 % (42-52); Hemoglobin 9.9 g/dL (14.0-18.0); Mean Corpuscular Hemoglobin 31.6 pg (25-34); Mean Corpuscular Hgb Conc 33.3 g/dL (32-36); Mean Corpuscular Volume 94.9 fL (80-100); Mean Platelet Volume 9.7 fL (7.4-10.4); Platelet Count 163 K/uL (130-400); RDW Coefficient of Variation 13.3 % (11.5-14.5); RDW Standard Deviation 45.7 fL (36.4-46.3); Red Blood Count 3.13 M/uL (4.7-6.1); White Blood Count 12.06 K/uL (4.8-10.8)
[2021-06-30] MEDS: ASCORBIC ACID 500 MG TAB PO SCH (09:08)
[2021-06-30] MEDS: CEROVITE ADV FORMULA TAB PO SCH (09:08)
[2021-06-30] MEDS: MULTIVITAMIN TAB PO SCH (09:09)
[2021-06-30] MEDS: CHOLECALCIFEROL 1,000 UNITS 25 MCG TAB PO SCH (09:09)
[2021-06-30] MEDS: dexAMETHasone 6 MG in SYRINGE 0 ML IV SCH (09:09)
--- NOTE | 2021-06-30 12:01 | Discharge Summary ---
Date of Service June 30, 2021 Principal Diagnosis Lumbar spinal stenosis with neurogenic claudication Discharge Data Allergies Allergy/AdvReac Type Severity Reaction Status Date / Time No Known Allergies Allergy Verified 06/27/21 07:46 Consultations 06/27/21 15:13 Consult Hospitalist Routine Procedures Performed Operation Date: 06/27/21 09:10 Actual Procedures p L2-S1 Decompression and Fusion, Spinal Cord Monitoring(Not Applicable) - Todd Mckeon DO s L3-L4 Hardware Removal(Not Applicable) - Todd Mckeon DO Ordered Studies 06/27/21 09:10 [place] lumbar spine 2-3V Routine Hospital Course (1) Neurogenic claudication due to lumbar spinal stenosis: Patient underwent multilevel lumbar decompression fusion tolerated so was taken to orthopedic for possibly. Postop day 1 he was up and ambulating Josue postop day #2 postop day #3 pain was well controlled DONTE drain decreasing probably. Excellent strength testing. Socially discharged home. Discharge orders and instructions from the chart for further review. Total Time Total Time Spent Total Time Spent (In Minutes): 20 minutes Discharge Plan Discharge Items Patient Disposition: Home - Self-Care Reason For Visit: Unspecified Thoracic, Thoracolumbar and Lumbosacra Discharge Diagnosis: Spinal stenosis with neurogenic claudication Activity: As commented below Non-emergency contact: Primary Care Provider Call non-emergency contact if: you have any medication questions Follow-up/Referrals: Todd Mckeon DO [Surgeon] - 07/13/21 11:15 am Keith Cai [Primary Care Provider] - Diet: Regular Addtl Attending Provider Instructions: ACTIVITY RECOMMENDATIONS: SELF CARE INSTRUCTIONS AFTER THORACIC/LUMBAR FUSIONS 1. You may walk to your tolerance. It is good exercise for your legs and back. Expect some back and intermittent leg aches and pains. 2. You may perform "counter-top" level activities (make a sandwich, zuri with a project, etc.). 3. No bending or lifting of more than 10 pounds or back twisting of any nature (roll like a log when turning in bed). 4. You may ride in a car for 20-30 minutes at a time. No driving until after your first visit with your doctor. 5. Frequent changes of position and restricting sitting to 30 minutes at a time will help limit the amount of back spasms and stiffness you may experience. 6. You may discontinue the use of ambulatory aids (cane, crutches, etc.) once your strength and confidence allow. 7. You may flight attendant/inflight supervisor the shower and let water strike your incision when you arrive home at least once daily. Do not take a tub bath, sit in a hot tub or go into a swimming pool until after your first recheck in the office. SPECIAL CARE INSTRUCTIONS: VERY IMPORTANT TO READ AND REVIEW A. Your surgical incision has been closed with a cosmetic suture under the skin that will dissolve in about 6 weeks. In 14 days, you can use a pair of clean scissors and cut the suture that is left outside of the skin at the ends of your incision. 1. The small skin tapes can be removed 7 days after surgery if they have not fallen off by that point. 2. You may keep the wound open to air as much as possible to promote healing after post-op day number 5 unless told otherwise by your doctor. 3. If you think the wound looks like it is becoming infected (redness or worsening drainage) and/or you are experiencing fever, chill or worsening back pain and muscle spasms, contact the office so that we may evaluate you as soon as possible. B. Complications are uncommon, but please contact us if you have any signs or symptoms of: 1. wound infection (fever higher than 102.5 degrees F, redness, separation of wound, drainage, or increasing pain from the incision) 2. blood clots in legs (pain, swelling, redness and warmth in legs) 3. urinary tract infection (fever higher than 102.5 degrees F, burning upon urination or increased frequency of urination) 4. nerve problems (inability to walk on your toes or heels, numbness, loss of bowel or bladder control) 5. any other symptoms that concern you C. Please call the office at if you have any concerns or questions about your operation or recovery. D. No smoking! Smoking drastically decreases the chance of a solid fusion. E. Do not take any anti-inflammatory medications (Indocin, Advil, Motrin, Aspirin, Naprosyn, etc.) as these may inhibit the chance of a solid fusion. Ty lenol is okay to take for pain. MANAGING PAIN AFTER SPINAL SURGERY 1. Narcotic medication is intended for short-term use and will be provided for surgical pain. Surgical pain usually lasts for a period of 4-6 weeks. Narcotic medication includes Percocet, Vicodin, Darvocet, Tylenol #3 or Lortab. 2. Longer-term pain is more appropriately treated with non-narcotic medication such as Tylenol ES. 3. Muscle spasm is not appropriately treated with narcotics. Muscle relaxers such as Soma, Flexeril or Skelaxin can be used along with Tylenol ES. 4. Remember that we all live with some "aches and pains". This is not unusual or uncommon after an injury or as we get older. a. Back pain is expected and may include muscle spasms for 4 to 6 weeks after surgery. The pain should gradually improve. If the pain worsens for no apparent reason, please contact the office. b. Intermittent leg pain may also be experienced and should not be concerned about unless it worsens for no apparent reason. If so, please contact the office. 5. We will provide appropriate medication within the normal guidelines of their prescribed use. We will also be very cautious and aware of potential abuse and extended duration of patients' medication needs. a. Pain medications are for your comfort and to assist with sleep and rest so that the tissue can heal. They are not provided in order to return to normal activity and should not be used through the day. To do so or worsening pain at night can result from ongoing tissue damage and development of tolerance to the prescribed medicine. 6. Please allow 2-3 days to process refills. Prescriptions will not be mailed but must be picked up at the office. FOLLOW UP VISIT: Keep your scheduled follow-up appointment. Any questions, please call the office at . Pending Studies at Discharge: No Stand-Alone Forms: [facility] Medications and DC Order Prescriptions: New tramadol 50 mg tablet 50 mg PO Q6H PRN (Reason: pain, moderate) Qty: 30 RF: 0 oxycodone 5 mg tablet 5 mg PO Q6H PRN (Reason: pain, severe) Qty: 30 RF: 0 Continued multivitamin Tablet 1 tab PO QAM RF: 0 ascorbic acid (vitamin C) [Vitamin C] 1,000 mg Tablet 1 g PO QAM RF: 0 atorvastatin 10 mg Tablet 5 mg PO Q OTHER DAY RF: 0 pantoprazole 40 mg Tablet,Delayed Release (Dr/Ec) 40 mg PO DAILY PRN (Reason: Acid Reflux) RF: 0 omega-3 fatty acids Capsule 1,000 mg PO QAM RF: 0 cholecalciferol (vitamin D3) [Vitamin D3] 50 mcg (2,000 unit) Tablet 50 mcg PO QAM RF: 0 PreserVision AREDS-2 250-90-40-1 mg Tablet,Chewable 1 tab PO AMPM RF: 0 baclofen 10 mg Tablet 10 mg PO TID RF: 0 Discharge Orders: Discharge Order (Routine); Ordered 06/30/21 Ordered By: Todd Mckeon Admission Data Admit Date/Time: 06/27/21 12:56 Attending Provider: Todd Mckeon Admit Provider: Todd Mckeon Primary Care Provider: Keith Cai Other Providers: Delano Early
--- NOTE | 2021-06-30 13:32 | Hospitalist Progress Note ---
Date of Service June 30, 2021 Assessment & Plan (1) Neurogenic claudication due to lumbar spinal stenosis: (2) Hyperlipidemia: (3) GERD (gastroesophageal reflux disease): Plan: 81 yr old M with hx of HLD, GERD, known RBBB who underwent elective lumbar procedure today: #. Neurogenic claudication due to lumbar spinal stenosis #. Acute Blood loss anemia: likely post operative Actual Procedures on 06/27/[address] Mckeon #1 removal of posterior instrumentation L3-L4. #2 exploration of fusion L3-L4. #3 lumbar decompression with bilateral medial facetectomies and foraminotomies L1-L2, L2-L3, L4-5 and L5-S1. #4 posterior spinal fusion L2-S1. #5 placement posterior segmental instrumentation L2-S1. #6 interbody fusion L4-L5 L5-S1. #7 placement of Spira cage 14 x 26 mm at L4-5 and 13 x 26 mm at L5-S1. #8 placement locally harvested morselized autograft in the posterior gutters. #9 placement infuse collagen sponge, master graft in the posterior gutters and I factor interbody space EBL 500ml pain/wound management per surgery activity and therapy as directed by ortho monitor hgb, pre op 14.7 , Post op Hb 11.6, monitor Hb daily and as needed. encourage incentive spirometry and wean O2 at able Hemoglobin fairly stable around 10. #. Hypotension - post operative, resolved. #. Leukocytosis: Likely secondary to steroid use. HLD continue statin Gerd continue PPI Chronic RBBB no underlying CAD, hx of cath DVT ppx: per primary PCP: Keith Cai MD, [facility] FULL CODE Dispo:Per Ortho Admission and Anticipated Discharge Date Admission Date: June 27, 2021 Subjective Patient seen and examined at bedside as a follow-up ofNeurogenic claudication due to lumbar spinal stenosiss/p decompression and fusion by Dr. Mckeon on 06/27/21. Patient was sitting up in chair, on room air, NAD, no new acute events overnight. Patient reports improvement in his radiating pain and pain at operative site. Clean dressing noted without soakage, DONTE drain in situ with scant serosanguineous collection. Patient reports eating okay, moving bowel. Patient denies any fever/headache/chills/chest pain/cough/back pain/other review of symptoms. Physical Exam Physical Exam: GENERAL: Alert and oriented x3. NAD, on RA. HEENT: No pallor, no icterus. Pupils equal, round and reactive to light. Oral mucosa moist. NECK: No JVD, no neck masses. HEART: S1 and S2 heard. Regular rate and rhythm. No murmur, no gallop. RESPIRATORY SYSTEM: Normal AP diameter. No accessory muscle use. No wheezing, no crackles. ABDOMEN: Soft, bowel sounds present, nontender, no distention. CENTRAL NERVOUS SYSTEM: No facial droop. Speech is clear. Obeys simple commands. Moves extremities. EXTREMITIES: No edema, no erythema seen. Low back with clean dressing, DONTE drain in situ with scant serosanguineous collection. Results & Data Results & Data ([facility]) Vital Signs (Past 12 Hours) Vital Signs Temp Pulse Pulse Resp BP BP Pulse Ox 06/30/21 12:36 36.7 C 75 74 16 104/66 116/63 96 06/30/21 09:04 36.7 C 74 16 104/66 96
== END 2021-06-30 14:56 | disposition home or self-care (01) | DRG 454 ==
LOC: ASU 07:21 → 3N 12:56

== ENCOUNTER 2021-07-02 10:00 | Observation (INO) ==
[2021-07-02] MEDS ORDERED: MoRPHine SULFATE 4 MG/ML 1 ML CARP\\VIAL IV STA (10:16)
[2021-07-02] MEDS ORDERED: ONDANSETRON INJ 2 MG/ML 2 ML VIAL IV STA (10:16)
--- NOTE | 2021-07-02 10:38 | Emergency Department Note ---
Impression & Plan Postoperative back pain, Lower extremity pain, right ED Provider Note NAME: JUDAH BRIONES AGE: 81 SEX: M : 1940 ARRIVES VIA: Walk-In INFORMANT: Patient, the patient's spouse ED PROVIDER(S): Devaughn Powell DO CHIEF COMPLAINT: Leg pain HPI: The patient is an 81-year-old male who is status post lumbar spine surgery for spinal stenosis who presented to the emergency department because of pain. The patient started noticing lower extremity pain and swelling over the last few days. They called their primary orthopedic physician and they were referred to the emergency department for possible DVT. The patient denies having any chest pain. He does complain of some postoperative back pain but it is not severe. He states he has been doing well until the last few days. His significant other does note that he has swelling in his legs as well. He has no history of venous thromboembolic disease. He does not take any blood thinners. He has been compliant with his usual outpatient medication. He denies having any rectal bleeding. He denies having any chest pain or difficulty with hemoptysis. ROS: See above HPI for pertinent positives & negatives. A total of 10 systems re viewed and were otherwise negative. PAST MEDICAL HISTORY: See Below PAST SURGICAL HISTORY: See Below FAMILY HISTORY: See Below SOCIAL HISTORY: See Below HOME MEDICATIONS: See Below ALLERGIES: See Below VITALS: See Below PHYSICAL EXAMINATION: GENERAL: The patient is awake and alert. He is somewhat anxious appearing appears to be uncomfortable. EYES: The conjunctivae are clear. The pupils are round and reactive. EARS, NOSE, MOUTH AND THROAT: The nose is without any evidence of any deformity. NECK: The neck is nontender and supple. RESPIRATORY: Normal respiratory effort is noted there is no evidence of wheezing rhonchi or rales CARDIOVASCULAR: Regular rate and rhythm noted there no murmurs rubs or gallops normal S1 normal S2. GASTROINTESTINAL: The abdomen is soft. Abdomen is nontender. BACK: Wound dressing was noted in the lower lumbar spine. There is no drainage or bleeding appreciated. SKIN: There is no obvious evidence of any rash. There are no petechiae, pallor or cyanosis noted. NEUROLOGIC: Patient is awake alert and oriented x3 strength is symmetric patellar reflexes are 2+ bilaterally MEDICAL DECISION MAKING: The patient is an 81-year-old male who presented to the emergency department for back pain and lower extremity pain. The patient had recent lumbar spine surgery. He was trying to manage his pain at home but started developing pain in his right lower extremity. He called his primary orthopedic spinal surgeon and was referred to the emergency department for further evaluation and possible DVT work-up. I discussed patient's laboratory and radiographic studies with him. He was treated with pain medication in the emergency department. Ultimately no DVT was noted the patient was felt to be able to be discharged however because of the degree of postoperative pain is significant other did not feel comfortable taking him home. For this reason I discussed his case with the on-call [facility] Hospitalist group. They have agreed to evaluate the patient in the emergency department for further management and disposition. Triage Nursing notes reviewed. Prior medical records reviewed Vital Signs: reviewed and remarkable for no significant abnormalities Differential diagnosis: DVT, musculoskeletal, infection, joint effusion, trauma, lymphedema, idiopathic, CHF, as well as other pathologies. ER treatment provided: See below Diagnostics interpreted by me: ECG: EKG was obtained in the emergency department. My interpretation is normal sinus rhythm at 70 bpm. Right bundle branch block pattern was noted. LVH was suggested by voltage criteria. There were no PVCs noted. This was compared to a tracing from June 06, 2021. No changes were noted. Cardiac Monitoring: An order was placed for continuous cardiac monitoring. The monitor shows a rate of 69 bpm with sinus rhythm. Laboratory studies: As stated above and show below. Imaging studies: See below Consultation(s): I discussed this case with Eugene who is covering for Dr. Mckeon. I discussed this case with Jodie who is on for the [facility] Hospitalist group. Past Med/Surg History Medical History (Updated 07/02/21 @ 14:38 by Devaughn Powell DO) Degenerative disc disease GERD (gastroesophageal reflux disease) Well controlled and stable History of Mohs micrographic surgery for skin cancer Hyperlipidemia Kidney stones Passed on own Neurogenic claudication due to lumbar spinal stenosis Prostate cancer 10 yrs ago > with seeds for radiation Surgical History (Updated 07/02/21 @ 14:36 by Gloria Tapia PA-C) History of cardiac cath Over 15 yrs ago - no stents or bypass History of cataract surgery bilat History of colonoscopy History of esophagogastroduodenoscopy (EGD) History of lumbar surgery History of tonsillectomy S/P spinal surgery Family History Father Prostate cancer Hypertension Mother Breast cancer Social History Smoking Status: Former smoker Second Hand Exposure: No; Hx Alcohol Use: No Hx Substance Use: No Preferred Language: Japanese Communication Ability: Effective Excel Vba Developer Required: No Beliefs That Will Affect Care: None Current Living Situation: Spouse Feels Safe at Home: Yes Assistive Devices: Walker Allergies Allergies Allergy/AdvReac Type Severity Reaction Status Date / Time No Known Allergies Allergy Verified 07/02/21 11:01 Home Meds Home Medications Medication Instructions Recorded Confirmed ascorbic acid (vitamin C) 1,000 mg 1 g PO QAM 06/01/21 07/02/21 tablet (Vitamin C) atorvastatin 10 mg tablet 5 mg PO Q OTHER DAY 06/01/21 07/02/21 cholecalciferol (vitamin D3) 50 50 mcg PO QAM 06/01/21 07/02/21 mcg (2,000 unit) tablet (Vitamin D3) multivitamin 1 tab PO QAM 06/01/21 07/02/21 pantoprazole 40 mg tablet,delayed 40 mg PO DAILY PRN 06/01/21 07/02/21 release vit C 250 mg-E 90 mg-zinc 40 1 tab PO AMPM 06/01/21 07/02/21 mg-copper 1 [id number] chew tablet (PreserVision AREDS-2) omega 6-arq-fik-fish oil 1,000 mg 1 cap PO QAM 07/02/21 07/02/21 (120 mg-180 mg) capsule (Fish Oil) Previous Rx's Medication Instructions Recorded oxycodone 5 mg tablet 5 mg PO Q6H PRN #30 tab 06/28/21 tramadol 50 mg tablet 50 mg PO Q6H PRN #30 tab 06/28/21 Results & Data (ED) Vital Signs Vital Signs - 24 hr 07/02/21 10:06 07/02/21 10:30 07/02/21 11:00 Temperature 36.4 C L Temperature Source Temporal Artery Scan Pulse Rate 82 73 71 Pulse Rate from SpO2 Sensor 73 71 Respiratory Rate 20 17 Respiratory Effort / Characteristics Non-Labored Respiratory Depth Normal Blood Pressure 127/79 137/74 118/81 Blood Pressure Mean 95 95 93 Pulse Oximetry 94 93 91 Oxygen Delivery Method Room Air Room Air Room Air Sepsis Recent Fever Within 48 Hours No Sepsis New/Unexplained Change in Mental Status N/A Sepsis Action Taken by Nursing No Action Required 07/02/21 11:30 07/02/21 12:00 07/02/21 12:25 Temperature Temperature Source Pulse Rate 64 69 75 Pulse Rate from SpO2 Sensor 64 62 75 Respiratory Rate Respiratory Effort / Characteristics Respiratory Depth Blood Pressure 121/65 102/68 141/75 H Blood Pressure Mean 83 79 97 Pulse Oximetry 92 92 95 Oxygen Delivery Method Room Air Room Air Room Air Sepsis Recent Fever Within 48 Hours Sepsis New/Unexplained Change in Mental Status Sepsis Action Taken by Nursing 07/02/21 12:30 07/02/21 13:00 07/02/21 13:30 Temperature Temperature Source Pulse Rate 68 70 69 Pulse Rate from SpO2 Sensor Respiratory Rate Respiratory Effort / Characteristics Respiratory Depth Blood Pressure 118/69 122/66 116/64 Blood Pressure Mean 85 84 81 Pulse Oximetry 96 98 99 Oxygen Delivery Method Room Air Room Air Room Air Sepsis Recent Fever Within 48 Hours Sepsis New/Unexplained Change in Mental Status Sepsis Action Taken by Halfway Medications Current Medication List: was personally reviewed by me Laboratory Data Attestation: I reviewed the patient's lab results. Result diagrams: 07/02/21 10:23 07/02/21 10:23 Lab Results 07/02/21 07/02/21 07/02/21 Range/Units 10:23 10:23 10:23 WBC 9.47 (4.8-10.8) K/uL RBC 3.33 L (4.7-6.1) M/uL Hgb 10.5 L (14.0-18.0) g/dL Hct 31.9 L (42-52) % MCV 95.8 (80-100) fL MCH 31.5 (25-34) pg MCHC 32.9 (32-36) g/dL RDW Std Deviation 47.4 H (36.4-46.3) fL RDW Coeff of Sofia 13.7 (11.5-14.5) % Plt Count 198 (130-400) K/uL MPV 9.4 (7.4-10.4) fL Immature Gran % (Auto) 0.5 % Neut % (Auto) 69.0 % Lymph % (Auto) 17.6 % Flagler % (Auto) 11.0 % Eos % (Auto) 1.7 % Baso % (Auto) 0.2 % Neut # (Auto) 6.53 H (1.4-6.5) K/uL Lymph # (Auto) 1.67 (1.2-3.4) K/uL Flagler # (Auto) 1.04 H (0.11-0.59) K/uL Eos # (Auto) 0.16 (0-0.5) K/uL Baso # (Auto) 0.02 (0-0.2) K/uL Immature Gran # (Auto) 0.05 H (0.00-0.02) K/uL PT 10.8 (9.0-12.0) Seconds INR 1.0 (0.9-1.1) APTT 23.6 (21.0-31.0) Seconds PTT Ratio 0.9 Sodium (136-145) mmol/L Potassium (3.5-5.1) mmol/L Chloride (98-107) mmol/L Carbon Dioxide (21-32) mmol/L Anion Gap (3-11) BUN (6-23) mg/dl Creatinine (0.6-1.4) mg/dl Est Cr Clr Drug Dosing ml/min Est GFR ( Amer) ml/min Est GFR (Non-Af Amer) ml/min BUN/Creatinine Ratio (10-20) Glucose (70-99(Fasting)) mg/dl Calcium (8.5-10.1) mg/dl Total Bilirubin (0.2-1.0) mg/dl AST (13-39) U/L ALT (7-52) U/L Alkaline Phosphatase (34-104) U/L Troponin I High Sens 4.5 (0-20) pg/ml Total Protein (6.0-8.3) gm/dl Albumin (3.4-5.0) gm/dl Globulin (2.5-4.0) gm/dl Albumin/Globulin Ratio (0.9-2) Lipase (11-82) U/L SARS-CoV-2, RNA, NAAT (NEGATIVE) 07/02/21 07/02/21 Range/Units 10:23 13:47 WBC (4.8-10.8) K/uL RBC (4.7-6.1) M/uL Hgb (14.0-18.0) g/dL Hct (42-52) % MCV (80-100) fL MCH (25-34) pg MCHC (32-36) g/dL RDW Std Deviation (36.4-46.3) fL RDW Coeff of Sofia (11.5-14.5) % Plt Count (130-400) K/uL MPV (7.4-10.4) fL Immature Gran % (Auto) % Neut % (Auto) % Lymph % (Auto) % Flagler % (Auto) % Eos % (Auto) % Baso % (Auto) % Neut # (Auto) (1.4-6.5) K/uL Lymph # (Auto) (1.2-3.4) K/uL Flagler # (Auto) (0.11-0.59) K/uL Eos # (Auto) (0-0.5) K/uL Baso # (Auto) (0-0.2) K/uL Immature Gran # (Auto) (0.00-0.02) K/uL PT (9.0-12.0) Seconds INR (0.9-1.1) APTT (21.0-31.0) Seconds PTT Ratio Sodium 139 (136-145) mmol/L Potassium 3.9 (3.5-5.1) mmol/L Chloride 107 (98-107) mmol/L Carbon Dioxide 24 (21-32) mmol/L Anion Gap 8 (3-11) BUN 25 H (6-23) mg/dl Creatinine 0.96 (0.6-1.4) mg/dl Est Cr Clr Drug Dosing 67.4 ml/min Est GFR ( Amer) 86.2 ml/min Est GFR (Non-Af Amer) 74.4 ml/min BUN/Creatinine Ratio 26.0 H (10-20) Glucose 106 H (70-99(Fasting)) mg/dl Calcium 8.7 (8.5-10.1) mg/dl Total Bilirubin 0.6 (0.2-1.0) mg/dl AST 17 (13-39) U/L ALT 17 (7-52) U/L Alkaline Phosphatase 52 (34-104) U/L Troponin I High Sens (0-20) pg/ml Total Protein 6.3 (6.0-8.3) gm/dl Albumin 3.7 (3.4-5.0) gm/dl Globulin 2.6 (2.5-4.0) gm/dl Albumin/Globulin Ratio 1.4 (0.9-2) Lipase 25 (11-82) U/L SARS-CoV-2, RNA, NAAT NEGATIVE (NEGATIVE) Administered Medications Discontinued Medications Dexamethasone Sodium Phosphate (DexamethasonePf 10 Mg/Ml Vial) 10 mg IV NOW ONE Stop: 07/02/21 13:26 Last Admin: 07/02/21 13:34 Dose: 10 mg Documented by: [id number] Morphine Sulfate (Morphine Sulfate 4 Mg/Ml 1 Ml Carp\Vial) 4 mg IV NOW STA Stop: 07/02/21 10:17 Last Admin: 07/02/21 10:37 Dose: 4 mg Documented by: [id number] Ondansetron HCl (Ondansetron Inj 2 Mg/Ml 2 Ml Vial) 4 mg IV NOW STA Stop: 07/02/21 10:17 Last Admin: 07/02/21 10:37 Dose: 4 mg Documented by: [id number] Imaging Data Radiologist's Impression: Chest X-Ray 07/02/21 10:16 XR chest 1V portable CLINICAL HISTORY: Atypical chest pain. COMPARISON STUDY: Chest radiograph June 06, 2021. FINDINGS: Lung volumes are normal. Lungs are clear. There is no pneumothorax or pleural effusion. Cardiac size is normal. Mediastinal contours are normal. There is no evidence for pulmonary edema. IMPRESSION: No acute cardiopulmonary findings. ACT 112: Negative or not required by law. Electronically signed by: Arnaldo Solis M.D. 07/02/2021 10:44 AM Venous Doppler Study 07/02/21 10:16 BILATERAL LOWER EXTREMITY VENOUS DOPPLER HISTORY: Bilateral leg pain. sent by ortho for poss DVT COMPARISON STUDY: None. FINDINGS: There is normal compressibility, flow, and augmentation within the bilateral lower extremity deep venous systems. IMPRESSION: No DVT within the right or left lower extremity. ACT 112: Negative or not required by law. Electronically signed by: Matt Solano M.D. 07/02/2021 12:28 PM Discharge Plan Visit Data Chief Complaint: Leg Injury/Pain Stated Complaint: LEG PAIN, FEET SWELLING, RECOMMENDED BY ED Provider: Andre,Dveaughn R Discharge Problem: Postoperative back pain, Lower extremity pain, right Patient Disposition: Being Evaluated by Hospitalist Forms Stand Alone Forms: My [facility] Prescriptions Prescriptions: No Action multivitamin Tablet 1 tab PO QAM RF: 0 ascorbic acid (vitamin C) [Vitamin C] 1,000 mg Tablet 1 g PO QAM RF: 0 atorvastatin 10 mg Tablet 5 mg PO Q OTHER DAY RF: 0 pantoprazole 40 mg Tablet,Delayed Release (Dr/Ec) 40 mg PO DAILY PRN (Reason: Acid Reflux) RF: 0 cholecalciferol (vitamin D3) [Vitamin D3] 50 mcg (2,000 unit) Tablet 50 mcg PO QAM RF: 0 PreserVision AREDS-2 250-90-40-1 mg Tablet,Chewable 1 tab PO AMPM RF: 0 tramadol 50 mg tablet 50 mg PO Q6H PRN (Reason: pain, moderate) Qty: 30 RF: 0 oxycodone 5 mg tablet 5 mg PO Q6H PRN (Reason: pain, severe) Qty: 30 RF: 0 omega 9-axr-oek-fish oil [Fish Oil] 1,000 mg (120 mg-180 mg) Capsule 1 cap PO QAM RF: 0 Referrals Referrals: Keith Cai [Primary Care Provider] -
--- NOTE | 2021-07-02 10:46 | XRay Report ---
XR chest 1V portable CLINICAL HISTORY: Atypical chest pain. COMPARISON STUDY: Chest radiograph June 06, 2021. FINDINGS: Lung volumes are normal. Lungs are clear. There is no pneumothorax or pleural effusion. Car diac size is normal. Mediastinal contours are normal. There is no evidence for pulmonary edema. IMPRESSION: No acute cardiopulmonary findings. ACT 112: Negative or not required by law. Electronically signed by: Arnaldo Solis M.D. 07/02/2021 10:44 AM
[2021-07-02 10:47] LABS: Basophils # (auto) 0.02 K/uL (0-0.2); Basophils % (auto) 0.2 %; Eosinophils # (auto) 0.16 K/uL (0-0.5); Eosinophils % (auto) 1.7 %; Hematocrit (blood only) 31.9 % (42-52); Hemoglobin 10.5 g/dL (14.0-18.0); Immature Granulocytes # (auto) 0.05 K/uL (0.00-0.02); Immature Granulocytes % (auto) 0.5 %; Lymphocytes # (auto) 1.67 K/uL (1.2-3.4); Lymphocytes % (auto) 17.6 %; Mean Corpuscular Hemoglobin 31.5 pg (25-34); Mean Corpuscular Hgb Conc 32.9 g/dL (32-36); Mean Corpuscular Volume 95.8 fL (80-100); Mean Platelet Volume 9.4 fL (7.4-10.4); Monocytes # (auto) 1.04 K/uL (0.11-0.59); Neutrophils # (auto) 6.53 K/uL (1.4-6.5); Platelet Count 198 K/uL (130-400); RDW Coefficient of Variation 13.7 % (11.5-14.5); RDW Standard Deviation 47.4 fL (36.4-46.3); Red Blood Count 3.33 M/uL (4.7-6.1); White Blood Count 9.47 K/uL (4.8-10.8)
[2021-07-02 10:54] LABS: Partial Thromboplastin Ratio 0.9; Partial Thromboplastin Time 23.6 Seconds (21.0-31.0); Prothrombin Time 10.8 Seconds (9.0-12.0)
[2021-07-02 10:59] LABS: Albumin Globulin Ratio 1.4 (0.9-2); Albumin Level 3.7 gm/dl (3.4-5.0); Bilirubin,Total 0.6 mg/dl (0.2-1.0); Calcium 8.7 mg/dl (8.5-10.1); Creatinine Clr Calc Pharmacy 67.4 ml/min; Est GFR (African American) 86.2 ml/min; Est GFR (Non-African American) 74.4 ml/min; Globulin 2.6 gm/dl (2.5-4.0); Potassium 3.9 mmol/L (3.5-5.1); Total Protein 6.3 gm/dl (6.0-8.3)
--- NOTE | 2021-07-02 12:14 | Electrocardiogram Report ---
Test Reason : Blood Pressure : / mmHG Vent. 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
--- NOTE | 2021-07-02 12:30 | Ultrasound Report ---
BILATERAL LOWER EXTREMITY VENOUS DOPPLER HISTORY: Bilateral leg pain. sent by ortho for poss DVT COMPARISON STUDY: None. FINDINGS: There is normal compressibility, flow, and augmentation within the bilateral lower extremit y deep venous systems. IMPRESSION: No DVT within the right or left lower extremity. ACT 112: Negative or not required by law. Electronically signed by: Matt Solano M.D. 07/02/2021 12:28 PM
[2021-07-02] MEDS ORDERED: dexAMETHasone**PF** 10 MG/ML VIAL IV ONE (13:25)
--- NOTE | 2021-07-02 14:59 | History & Physical Report ---
Date of Service July 02, 2021 Assessment & Plan (1) Postoperative back pain: (2) S/P spinal surgery: (3) Lower extremity pain, right: Plan: Patient is an 81 yo male with severe pain radiating down both legs s/p spine surgery on 06/27. Admit for OBS overnight for pain management and Ortho consult in AM Continue Decadron Q8h per Ortho. 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 Continue to monitor. Recheck on AM labs Monitor BP closely- was hypotensive last admit. Normotensive now. WBC normal. Recheck in AM- hold abx (4) GERD (gastroesophageal reflux disease): Plan: Continues Protonix (5) Hyperlipidemia: Plan: Hold atorvastatin for now- takes every other day. (6) DVT prophylaxis: Plan: SCDs & TEDs History of Present Illness Chief Complaint: Back pain Primary Care Provider: Keith Cai Patient is an 81 yo male with PMHx of GERD and hyperlipidemia who presented to the ED with back pain radiating into the B/L LE s/p spinal surgery on 06/27/[address] Mckeon. The patient had been ambulating at home cautiously over the past couple of days since surgery. Starting yesterday, he wasn't able to ambulate without significant pain down his right leg. He was told not to sleep in the rocking chair, but that was the only place he could get comfortable. This morning, he woke up around 4AM in the rocking chair and couldn't get up the pain was so severe. He also noted edema in his legs, so they called the home demonstrator doctor for advice. He was told to come to the ER to R/O DVT. The patient took 2 oxycodone 5 mg tablets this AM which didn't help the pain much at all. He currently has pain in the low back radiating down both legs. Worse in the left currently. he is able to move both legs. B/L Venous Doppler in the ED was negative for DVT. Patient notes that he has been slightly constipated but took something at home yesterday which helped relieve his bowels. He otherwise has been eating well, drinking well, and no N/V. No blood in stool. His notes that his bandage was saturated with serous/clear drainage yesterday. It was changed. Today, the bandage again has some yellow, clear drainage. No rash. Patient had similar hospitalizations about 10 years ago after initial back surgery. He ended up in the hospital for pain management at that time as well per his . Allergies Allergy/AdvReac Type Severity Reaction Status Date / Time No Known Allergies Allergy Verified 07/02/21 11:01 Home Medications Medication Instructions Recorded Confirmed Type ascorbic acid (vitamin C) 1,000 mg 1 g PO QAM 06/01/21 07/02/21 History tablet (Vitamin C) atorvastatin 10 mg tablet 5 mg PO Q OTHER DAY 06/01/21 07/02/21 History cholecalciferol (vitamin D3) 50 50 mcg PO QAM 06/01/21 07/02/21 History mcg (2,000 unit) tablet (Vitamin D3) multivitamin 1 tab PO QAM 06/01/21 07/02/21 History pantoprazole 40 mg tablet,delayed 40 mg PO DAILY PRN 06/01/21 07/02/21 History release vit C 250 mg-E 90 mg-zinc 40 1 tab PO AMPM 06/01/21 07/02/21 History mg-copper 1 vu-flrbds-lwvptp chew tablet (PreserVision AREDS-2) oxycodone 5 mg tablet 5 mg PO Q6H PRN #30 tab 06/28/21 07/02/21 Rx tramadol 50 mg tablet 50 mg PO Q6H PRN #30 tab 06/28/21 07/02/21 Rx omega 8-seu-rxe-fish oil 1,000 mg 1 cap PO QAM 07/02/21 07/02/21 History (120 mg-180 mg) capsule (Fish Oil) Past Med/Surg History Medical History Degenerative disc disease GERD (gastroesophageal reflux disease) Well controlled and stable History of Mohs micrographic surgery for skin cancer Hyperlipidemia Kidney stones Passed on own Neurogenic claudication due to lumbar spinal stenosis Prostate cancer 10 yrs ago > with seeds for radiation Surgical History History of cardiac cath Over 15 yrs ago - no stents or bypass History of cataract surgery bilat History of colonoscopy History of esophagogastroduodenoscopy (EGD) History of lumbar surgery History of tonsillectomy S/P spinal surgery Family History Father Prostate cancer Hypertension Mother Breast cancer Social History Smoking Status: Former smoker Second Hand Exposure: No; Do You Dip or Chew Tobacco: No; Hx Alcohol Use: Yes Alcohol type: wine Hx Substance Use: No Preferred Language: Ukrainian Communication Ability: Effective 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 Athletic Director Required: No Beliefs That Will Affect Care: None Current Living Situation: Spouse Feels Safe at Home: Yes Safety Concerns: Feels Safe At This Time Assistive Devices: Glasses and Walker Review of Systems Review of Systems: All systems reviewed & are unremarkable except as noted in HPI & below Physical Exam Constitutional: WD/WN, vitals as above Eyes: PERRL, conjunctivae normal, anicteric sclerae ENMT: external ear and nose normal, oropharynx normal Neck: trachea midline, no thyromegaly Respiratory: normal respiratory effort, lungs clear to auscultation Cardiovascular: RRR, no murmur, no edema Extremities: + edema (trace pitting edema B/L LE L>R) Gastrointestinal (Abdomen): normal bowel sounds, soft, nontender, no hepatosplenomegaly Musculoskeletal: Extremities: + abnormal strength (Slightly decreased strength in RLE compared to LLE with plantar flexion. ) 3/5 strength with plantar flexion Right, 4/5 left. Skin: Note large bandage over the lower back. Note some yellow/clear drainage coming through the bandage. Neurologic: Sensation intact B/L LE Psychiatric: A+Ox3, euthymic affect Results & Data Results & Data ([facility]) Vital Signs (Past 12 Hours) Vital Signs Temp Pulse Resp BP Pulse Ox 07/02/21 13:30 69 116/64 99 07/02/21 13:00 70 122/66 98 07/02/21 12:30 68 118/69 96 07/02/21 12:25 75 141/75 H 95 07/02/21 12:00 69 102/68 92 07/02/21 11:30 64 121/65 92 07/02/21 11:00 71 118/81 91 07/02/21 10:30 73 17 137/74 93 07/02/21 10:06 36.4 C L 82 20 127/79 94 Laboratory Results Laboratory Results - last 24 hr 07/02/21 07/02/21 07/02/21 10:23 10:23 10:23 WBC 9.47 RBC 3.33 L Hgb 10.5 L Hct 31.9 L MCV 95.8 MCH 31.5 MCHC 32.9 RDW Std Deviation 47.4 H RDW Coeff of [place] 13.7 Plt Count 198 MPV 9.4 Immature Gran % (Auto) 0.5 Neut % (Auto) 69.0 Lymph % (Auto) 17.6 [place] % (Auto) 11.0 Eos % (Auto) 1.7 Baso % (Auto) 0.2 Neut # (Auto) 6.53 H Lymph # (Auto) 1.67 [place] # (Auto) 1.04 H Eos # (Auto) 0.16 Baso # (Auto) 0.02 Immature Gran # (Auto) 0.05 H PT 10.8 INR 1.0 APTT 23.6 PTT Ratio 0.9 Sodium Potassium Chloride Carbon Dioxide Anion Gap BUN Creatinine Est Cr Clr Drug Dosing Est GFR ( Amer) Est GFR (Non-Af Amer) BUN/Creatinine Ratio Glucose Calcium Total Bilirubin AST ALT Alkaline Phosphatase Troponin I High Sens 4.5 Total Protein Albumin Globulin Albumin/Globulin Ratio Lipase SARS-CoV-2, RNA, NAAT 07/02/21 07/02/21 10:23 13:47 WBC RBC Hgb Hct MCV MCH MCHC RDW Std Deviation RDW Coeff of Sofia Plt Count MPV Immature Gran % (Auto) Neut % (Auto) Lymph % (Auto) [place] % (Auto) Eos % (Auto) Baso % (Auto) Neut # (Auto) Lymph # (Auto) [place] # (Auto) Eos # (Auto) Baso # (Auto) Immature Gran # (Auto) PT INR APTT PTT Ratio Sodium 139 Potassium 3.9 Chloride 107 Carbon Dioxide 24 Anion Gap 8 BUN 25 H Creatinine 0.96 Est Cr Clr Drug Dosing 67.4 Est GFR ( Amer) 86.2 Est GFR (Non-Af Amer) 74.4 BUN/Creatinine Ratio 26.0 H Glucose 106 H Calcium 8.7 Total Bilirubin 0.6 AST 17 ALT 17 Alkaline Phosphatase 52 Troponin I High Sens Total Protein 6.3 Albumin 3.7 Globulin 2.6 Albumin/Globulin Ratio 1.4 Lipase 25 SARS-CoV-2, RNA, NAAT NEGATIVE Diagnostic Findings Venous Doppler B/L LE: IMPRESSION: No DVT within the right or left lower extremity. Code Status & VTE Plan VTE Prophylaxis Plan VTE Prophylaxis will be ordered: Yes Supervising Physician Co-Signing Physician Notes I have seen and examined the patient and have discussed the case with the provider above. I agree with the assessment and plan as stated. 81 yo M in [facility] reports sull pain in bilateral calves that began yesterday along with pressure in his operative site. He has some numbness on his feet bilaterally which is chronic. He is tian to turn and pivot but unable to ambulate well today. He was taking a shower and replaced the dressing over his op site, which today is soaked through with a yellow serous drainage. There is no sign or symptoms of infection. 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 Physical exam reveals a WNWD man in NAD. Oriented. Lungs are CTAB, cardiac exam is unremarkable. Extremities are warm and well perfused. Back incision site is closed with steri strips in place and healing well. There is a small hole left of the incision site where the serious drainage is coming from (prior drain site). Dressings wer replaced and ortho spine to eval him in the mornign. Notably, LE dopplers were negative. DO Gian
[2021-07-02] MEDS ORDERED: MoRPHine SULFATE PCA 30 MG/30 ML IV PRN (15:17)
[2021-07-02] MEDS ORDERED: NALOXONE HCL 0.4 MG/1 ML VIAL/CARP IV PRN (15:17)
[2021-07-02] MEDS ORDERED: PANTOprazole 40 MG TAB PO PRN (15:43)
[2021-07-02] MEDS ORDERED: ACETAMINOPHEN 325 MG TAB PO PRN (15:43)
[2021-07-02] MEDS ORDERED: POLYETHYLENE (MIRALAX) 17 GM PACK PO PRN (15:43)
[2021-07-02] MEDS: SODIUM CHLORIDE 0.9% 1000ML 1,000 ML IV SCH (16:45)
[2021-07-02] MEDS: DOCUSATE SODIUM 100 MG CAP PO SCH (20:52)
[2021-07-02] MEDS: dexAMETHasone 8 MG in SYRINGE 0 ML IV SCH (20:53)
[2021-07-03] MEDS: dexAMETHasone 8 MG in SYRINGE 0 ML IV SCH ×3 (05:13→20:31)
[2021-07-03 08:09] LABS: Hematocrit (blood only) 30.9 % (42-52); Hemoglobin 10.4 g/dL (14.0-18.0); Immature Granulocytes # (auto) 0.02 K/uL (0.00-0.02); Immature Granulocytes % (auto) 0.2 %; Lymphocytes # (auto) 0.73 K/uL (1.2-3.4); Lymphocytes % (auto) 7.8 %; Mean Corpuscular Hemoglobin 31.5 pg (25-34); Mean Corpuscular Hgb Conc 33.7 g/dL (32-36); Mean Corpuscular Volume 93.6 fL (80-100); Mean Platelet Volume 9.3 fL (7.4-10.4); Monocytes # (auto) 0.39 K/uL (0.11-0.59); Monocytes % (auto) 4.2 %; Neutrophils # (auto) 8.17 K/uL (1.4-6.5); Neutrophils % (auto) 87.8 %; Platelet Count 218 K/uL (130-400); RDW Coefficient of Variation 13.3 % (11.5-14.5); RDW Standard Deviation 45.3 fL (36.4-46.3); White Blood Count 9.31 K/uL (4.8-10.8)
[2021-07-03 08:23] LABS: BUN Creatinine Ratio 31.5 (10-20); Calcium 8.8 mg/dl (8.5-10.1); Creatinine Clr Calc Pharmacy 88.6 ml/min; Est GFR (African American) 101.5 ml/min; Est GFR (Non-African American) 87.6 ml/min; Potassium 4.2 mmol/L (3.5-5.1)
[2021-07-03] MEDS: DOCUSATE SODIUM 100 MG CAP PO SCH ×2 (09:03→20:29)
--- NOTE | 2021-07-03 12:30 | Orthopedic Consultation ---
Date of Consultation July 03, 2021 Assessment & Plan (1) S/P spinal surgery: At this time he appears to be having a normal postoperative course. We will have him work with physical therapy occupational therapy he may be a candidate for rehab. History of Present Illness Reason for Consultation: Status post multilevel lumbar decompression fusion. Attending Physician: Summer Agosto MD History of Present Illness Is an 81-year-old male well-known to me that status post lumbar decompression fusion. He presents emergency room yesterday with some aching in his lower extremities. There was concern for possible blood clots. Venous Dopplers were negative. He was admitted for observation. Today he is relatively comfortable he does describe some aching in the calfs but no radicular complaints. He is tolerating physical therapy. His bowels are working well. Good appetite. Allergies Allergy/AdvReac Type Severity Reaction Status Date / Time No Known Allergies Allergy Verified 07/02/21 11:01 Home Medications Medication Instructions Recorded Confirmed Type ascorbic acid (vitamin C) 1,000 mg 1 g PO QAM 06/01/21 07/02/21 History tablet (Vitamin C) atorvastatin 10 mg tablet 5 mg PO Q OTHER DAY 06/01/21 07/02/21 History cholecalciferol (vitamin D3) 50 50 mcg PO QAM 06/01/21 07/02/21 History mcg (2,000 unit) tablet (Vitamin D3) multivitamin 1 tab PO QAM 06/01/21 07/02/21 History pantoprazole 40 mg tablet,delayed 40 mg PO DAILY PRN 06/01/21 07/02/21 History release vit C 250 mg-E 90 mg-zinc 40 1 tab PO AMPM 06/01/21 07/02/21 History mg-copper 1 gk-mjvyqf-uqnkak chew tablet (PreserVision AREDS-2) oxycodone 5 mg tablet 5 mg PO Q6H PRN #30 tab 06/28/21 07/02/21 Rx tramadol 50 mg tablet 50 mg PO Q6H PRN #30 tab 06/28/21 07/02/21 Rx omega 3-rpz-kyg-fish oil 1,000 mg 1 cap PO QAM 07/02/21 07/02/21 History (120 mg-180 mg) capsule (Fish Oil) Patient History Medical History Degenerative disc disease GERD (gastroesophageal reflux disease) Well controlled and stable History of Mohs micrographic surgery for skin cancer Hyperlipidemia Kidney stones Passed on own Neurogenic claudication due to lumbar spinal stenosis Prostate cancer 10 yrs ago > with seeds for radiation Surgical History History of cardiac cath Over 15 yrs ago - no stents or bypass History of cataract surgery bilat History of colonoscopy History of esophagogastroduodenoscopy (EGD) History of lumbar surgery History of tonsillectomy S/P spinal surgery Family History Father Prostate cancer Hypertension Mother Breast cancer Social History Smoking Status: Former smoker Second Hand Exposure: No; Do You Dip or Chew Tobacco: No; Hx Alcohol Use: Yes Alcohol type: wine Hx Substance Use: No Preferred Language: Guyanese Communication Ability: Effective 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 Discussed pain to testing. Appears comfortable. Results & Data ([facility]) Vital Signs (Past 12 Hours) Vital Signs Temp Pulse Resp BP Pulse Ox 07/03/21 12:26 36.7 C 65 16 114/62 93 07/03/21 07:34 36.5 C 63 16 129/74 93 07/03/21 02:22 36.7 C 71 16 122/73 93
--- NOTE | 2021-07-03 18:49 | Hospitalist Progress Note ---
Date of Service July 03, 2021 Assessment & Plan (1) Postoperative back pain: (2) S/P spinal surgery: (3) Lower extremity pain, right: Plan: Patient is an 81 yo male with severe pain radiating down both legs s/p spine surgery on 06/27. 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 Continue Decadron Q8h per Ortho. PT/OT eval - might need inpatient rehab after therapy assessment Fall precaution Clinically stable (4) GERD (gastroesophageal reflux disease): Plan: Continues Protonix (5) Hyperlipidemia: Plan: Hold atorvastatin for now- takes every other day. (6) DVT prophylaxis: Plan: SCDs & TEDs Admission and Anticipated Discharge Date Admission Date: July 02, 2021 Subjective Pt was seen and examined for postop follow up of low back pain Sitting in chair with no acute distress He said that pain improves with the CLINICAL RESEARCH ANALYST pump He said that he feels much better Denies any chest pain, palpitation, dizziness and SOB Review of Systems Review of Systems: All systems reviewed & are unremarkable except as noted in Subjective Physical Exam Physical Exam: General- No acute distress Head- atraumatic Eyes- PERRL, EOMI, ENT- oropharynx clear Neck- supple, no JVD Lungs- clear to auscultation Heart- regular rhythm; no murmur Abdomen- normal bowel sounds, soft, nontender Extremities- no calf tenderness, +trace edema Neuro- alert, oriented x 3; PERRL, EOMI; no facial palsy; no dysarthria Skin- warm & dry Results & Data Results & Data ([facility]) Vital Signs (Past 12 Hours) Vital Signs Temp Pulse Resp BP Pulse Ox 07/03/21 16:12 36.8 C 70 16 154/63 H 96 07/03/21 12:26 36.7 C 65 16 114/62 93 07/03/21 07:34 36.5 C 63 16 129/74 93
[2021-07-03] MEDS: SODIUM CHLORIDE 0.9% 1000ML 1,000 ML IV SCH (20:29)
[2021-07-03] MEDS ORDERED: traMADol HCL 50 MG TABLET PO PRN (21:42)
[2021-07-04] MEDS ORDERED: PROMETHAZINE HCL 6.25 MG in SODIUM CHLORIDE 0.9% 50 ML IV PRN (01:39)
[2021-07-04] MEDS: dexAMETHasone 8 MG in SYRINGE 0 ML IV SCH ×3 (06:02→22:25)
--- NOTE | 2021-07-04 08:23 | Orthopedic Progress Note ---
Date of Service July 04, 2021 Assessment & Plan (1) S/P spinal surgery: Plan: This point would like him to continue with physical therapy and he is ready for inpatient rehab when bed available. Admission and Anticipated Discharge Date Admission Date: July 02, 2021 Subjective Patient complaining of some achiness in the legs but overall pain is improved. He is tolerating physical therapy. Physical Exam Physical Exam: On exam is good strength testing appears comfortable. Results & Data ([facility]) Vital Signs (Past 12 Hours) Vital Signs Temp Pulse Resp BP Pulse Ox Pulse Ox 07/04/21 03:22 37.0 C 77 16 145/77 H 94 07/04/21 01:25 36.9 C 77 16 125/68 98 07/03/21 22:36 36.5 C 74 18 154/74 H 93 07/03/21 20:30 93
[2021-07-04] MEDS: DOCUSATE SODIUM 100 MG CAP PO SCH ×2 (08:49→21:55)
--- NOTE | 2021-07-04 11:19 | Hospitalist Progress Note ---
Date of Service July 04, 2021 Assessment & Plan (1) Postoperative back pain: (2) S/P spinal surgery: (3) Lower extremity pain, right: Plan: Patient is an 81 yo male with severe pain radiating down both legs s/p spine surgery on 06/27. Continue pain control, will D/C AVIONICS MANAGER given pt reduced use and plan for rehab Ortho on board - normal postoperative course. Continue Decadron Q8h per Ortho. PT/OT Fall precaution Clinically stable will transition to scheduled Tylenol and as needed tramadol. If not enough relief can change to Oxy IR. (4) GERD (gastroesophageal reflux disease): Plan: Continues Protonix (5) Hyperlipidemia: Plan: Hold atorvastatin for now- takes every other day. (6) DVT prophylaxis: Plan: SCDs & TEDs, encourage ambulation as able Dispo: continue pt/ot, decadron, AVIONICS MANAGER d/c, plan for d/c to rehab when approved PCP: Keith Cai FULL CODE Pt was seen and examined in collaboration with Dr. Agosto, please see addendum Admission and Anticipated Discharge Date Admission Date: July 02, 2021 Supervising Physician Co-Signing Physician Notes Pt was seen and examined for follow up of back pain Sitting in chair with no distress Pt said that pain improved Denies any chest pain, palpitation, dizziness and SOB Exam General- No acute distress Head- atraumatic Eyes- PERRL, EOMI, ENT- oropharynx clear Neck- supple, no JVD Lungs- clear to auscultation Heart- regular rhythm; no murmur Abdomen- normal bowel sounds, soft, nontender Extremities- no calf tenderness Neuro- alert, oriented x 3; PERRL, EOMI; no facial palsy; no dysarthria Skin- warm & dry A/P (1) Postoperative back pain: (2) S/P spinal surgery: (3) Lower extremity pain, right: Patient is an 81 yo male with severe pain radiating down both legs s/p spine surgery on 06/27. Ortho on board - normal postoperative course. Continue Decadron Q8h per Ortho. Will d/c morphine and transition to oral pain PT/OT eval - might need inpatient rehab after therapy assessment Fall precaution Clinically stable MD Triny Subjective Patient was seen and examined in room 357-2. Follow-up low back pain. When he woke up this morning his pain was about a 7 out of 10. He did push his AVIONICS MANAGER pump. He admits to using approximately 2-3 times a day. Currently he is sitting up to chair and feels much improved. Pain is now about a 3 out of 10. He feels improved after he gets up and moves around. He states he is going to have PT today and possibly go to rehab tomorrow. He is agreeable to this. He denies chest pain, shortness of breath, nausea, vomiting, abdominal pain, fever, chills, sweats. Overall good appetite. He moved his bowels 1 day ago. Review of Systems Review of Systems: All systems reviewed & are unremarkable except as noted in HPI & below Physical Exam Physical Exam: Gen: WD/WN, NAD, A&O x3 HEENT: Normocephalic, atraumatic, conjunctivae moist, sclerae anicteric, mucous membranes moist. Lung: Clear to Auscultation bilaterally, no wheezes/rales/rhonchi Heart: Regular rate, regular rhythm, no murmurs, rubs, or gallops Abdomen: Soft, NT, ND +BS x 4 Extremities: No edema Skin: Warm, no rash, negative turgor. Results & Data Results & Data ([facility]) Vital Signs (Past 12 Hours) Vital Signs Temp Pulse Resp BP Pulse Ox 07/04/21 11:09 36.6 C 69 18 125/67 95 07/04/21 08:00 36.9 C 68 15 123/73 94 07/04/21 03:22 37.0 C 77 16 145/77 H 94 07/04/21 01:25 36.9 C 77 16 125/68 98 Medications Administered Current Inpatient Medications Acetaminophen (Acetaminophen 325 Mg Tab) 650 mg PO Q4H PRN PRN Reason: Pain or Fever Stop: 08/01/21 15:42 Acetaminophen (Acetaminophen 500 Mg Tab) 500 mg PO QID [facility] Stop: 08/03/21 12:59 Docusate Sodium (Docusate Sodium 100 Mg Cap) 100 mg PO BID [facility] Stop: 07/16/21 20:59 Last Admin: 07/04/21 08:49 Dose: 100 mg Documented by: Dexamethasone 8 mg/ Syringe 2 mls @ 1 mls/min IV Q8H [facility] Stop: 08/01/21 21:59 Last Admin: 07/04/21 06:02 Dose: 1 mls/min Documented by: Promethazine HCl 6.25 mg/ (Sodium Chloride) 50.25 mls @ 201 mls/hr IV Q6H PRN PRN Reason: Nausea And Vomiting Stop: 08/03/21 01:38 Last Infusion: 07/04/21 02:40 Dose: Infused Documented by: Naloxone HCl (Naloxone Hcl 0.4 Mg/1 Ml Vial/Carp) 0.1 mg IV Q5M PRN; Protocol PRN Reason: Oversedation/Resp Depression Stop: 07/16/21 15:16 Pantoprazole Sodium (Pantoprazole 40 Mg Tab) 40 mg PO DAILY PRN PRN Reason: Acid Reflux Stop: 08/01/21 15:42 Polyethylene Glycol (Polyethylene (Miralax) 17 Gm Pack) 17 gm PO DAILY PRN PRN Reason: Constipation Stop: 08/01/21 15:42 Tramadol HCl (Tramadol Hcl 50 Mg Tablet) 25 mg PO Q4H PRN PRN Reason: Pain Stop: 08/02/21 21:41 Last Admin: 07/03/21 21:51 Dose: 25 mg Documented by:
[2021-07-04] MEDS: ACETAMINOPHEN 500 MG TAB PO SCH ×3 (13:13→21:55)
[2021-07-04] MEDS: traMADol HCL 50 MG TABLET PO PRN (22:27)
[2021-07-05] MEDS: dexAMETHasone 8 MG in SYRINGE 0 ML IV SCH ×3 (05:28→21:12)
[2021-07-05] MEDS: ACETAMINOPHEN 500 MG TAB PO SCH ×4 (10:24→21:11)
[2021-07-05] MEDS: DOCUSATE SODIUM 100 MG CAP PO SCH ×2 (10:25→21:11)
--- NOTE | 2021-07-05 11:04 | Orthopedic Progress Note ---
Date of Service July 05, 2021 Assessment & Plan (1) Postoperative back pain: Plan: This following continue physical therapy. If he is a candidate for rehab we would support this however if he is not able to be placed in rehab Home health is reasonable. Going home tomorrow is reasonable. Admission and Anticipated Discharge Date Admission Date: July 04, 2021 Subjective Patient in the chair at the bedside.. Comfortable. Is good strength testing. Physical Exam Physical Exam: Patient is good strength testing appears comfortable. Results & Data ([facility]) Vital Signs (Past 12 Hours) Vital Signs Temp Pulse Resp BP Pulse Ox 07/05/21 07:32 36.7 C 80 18 140/60 93
--- NOTE | 2021-07-05 11:55 | Hospitalist Progress Note ---
Date of Service July 05, 2021 Assessment & Plan (1) Postoperative back pain: (2) S/P spinal surgery: (3) Lower extremity pain, right: Plan: Patient is an 81 yo male with severe pain radiating down both legs s/p spine surgery on 06/27. 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 Continue Decadron Q8h per Ortho. PT/OT Patient does not meet criteria for rehab, likely to discharge home tomorrow (4) GERD (gastroesophageal reflux disease): Plan: Continues Protonix (5) Hyperlipidemia: Plan: Hold atorvastatin for now- takes every other day. (6) DVT prophylaxis: Plan: SCDs & TEDs, encourage ambulation as able Dispo: Continue PT OT, discharge with home health tomorrow PCP: Keith Cai FULL CODE Pt was seen and examined in collaboration with Dr. Agosto, please see addendum Discussed with Gem. Initially she was concerned about patient coming home due to him not listening to her. She did talk to Dr. Mckeon and feels more competent after that discussion. I also encouraged her to come in today and work with nursing and patient ambulating to and from bathroom and doing ADLs to make her more comfortable. She agreed will be in at 2 PM. Admission and Anticipated Discharge Date Admission Date: July 04, 2021 Supervising Physician Co-Signing Physician Notes Pt was seen and examined for follow up of back pain Sitting in chair with no distress Denies any chest pain, palpitation, dizziness and SOB Exam General- No acute distress Head- atraumatic Eyes- PERRL, EOMI, ENT- oropharynx clear Neck- supple, no JVD Lungs- clear to auscultation Heart- regular rhythm; no murmur Abdomen- normal bowel sounds, soft, nontender Extremities- no calf tenderness Neuro- alert, oriented x 3; PERRL, EOMI; no facial palsy; no dysarthria Skin- warm & dry A/P (1) Postoperative back pain: (2) S/P spinal surgery: (3) Lower extremity pain, right: Patient is an 81 yo male with severe pain radiating down both legs s/p spine surgery on 06/27. Ortho on board - normal postoperative course. Continue Decadron Q8h per Ortho. Continue PO Tramadol PT/OT eval - Continue to do well. Might consider to discharge home Fall precaution Clinically stable MD Triny Subjective Patient was seen and examined in room 357-2. Follow-up low back pain. He just finished breakfast and currently is feeling well. He has not required any narcotic medication in the last 24 hours. He denies any fever, chills, sweats, lightheadedness, dizziness, chest pain, shortness of breath, nausea, vomiting, abdominal pain. He has moved his bowels. Review of Systems Review of Systems: All systems reviewed & are unremarkable except as noted in HPI & below Physical Exam Physical Exam: Gen: WD/WN, NAD, A&O x3 HEENT: Normocephalic, atraumatic, conjunctivae moist, sclerae anicteric, mucous membranes moist. Lung: Clear to Auscultation bilaterally, no wheezes/rales/rhonchi Heart: Regular rate, regular rhythm, no murmurs, rubs, or gallops Abdomen: Soft, NT, ND +BS x 4 Extremities: No edema, teds in place, lumbar dressing CDI Skin: Warm, no rash, negative turgor. Results & Data Results & Data ([facility]) Vital Signs (Past 12 Hours) Vital Signs Temp Pulse Resp BP Pulse Ox 07/05/21 07:32 36.7 C 80 18 140/60 93 Medications Administered Current Inpatient Medications Acetaminophen (Acetaminophen 325 Mg Tab) 650 mg PO Q4H PRN PRN Reason: Pain or Fever Stop: 08/01/21 15:42 Acetaminophen (Acetaminophen 500 Mg Tab) 500 mg PO QID [facility] Stop: 08/03/21 12:59 Last Admin: 07/05/21 10:24 Dose: 500 mg Documented by: Docusate Sodium (Docusate Sodium 100 Mg Cap) 100 mg PO BID PHILL Stop: 07/16/21 20:59 Last Admin: 07/05/21 10:25 Dose: 100 mg Documented by: Dexamethasone 8 mg/ Syringe 2 mls @ 1 mls/min IV Q8H PHILL Stop: 08/01/21 21:59 Last Admin: 07/05/21 05:28 Dose: 1 mls/min Documented by: Promethazine HCl 6.25 mg/ (Sodium Chloride) 50.25 mls @ 201 mls/hr IV Q6H PRN PRN Reason: Nausea And Vomiting Stop: 08/03/21 01:38 Last Infusion: 07/04/21 02:40 Dose: Infused Documented by: Naloxone HCl (Naloxone Hcl 0.4 Mg/1 Ml Vial/Carp) 0.1 mg IV Q5M PRN; Protocol PRN Reason: Oversedation/Resp Depression Stop: 07/16/21 15:16 Pantoprazole Sodium (Pantoprazole 40 Mg Tab) 40 mg PO DAILY PRN PRN Reason: Acid Reflux Stop: 08/01/21 15:42 Last Admin: 07/05/21 05:28 Dose: 40 mg Documented by: Polyethylene Glycol (Polyethylene (Miralax) 17 Gm Pack) 17 gm PO DAILY PRN PRN Reason: Constipation Stop: 08/01/21 15:42 Tramadol HCl (Tramadol Hcl 50 Mg Tablet) 50 mg PO Q4H PRN PRN Reason: Pain Stop: 08/02/21 21:41 Last Admin: 07/04/21 22:27 Dose: 50 mg Documented by:
[2021-07-05] MEDS: traMADol HCL 50 MG TABLET PO PRN (21:11)
[2021-07-05] MEDS ORDERED: oxyCODONE HCL IR 5 MG TAB (IMMEDIATE RELEASE) PO STA (23:54)
[2021-07-06] MEDS: dexAMETHasone 8 MG in SYRINGE 0 ML IV SCH (06:08)
[2021-07-06] MEDS: traMADol HCL 50 MG TABLET PO PRN (06:14)
[2021-07-06] MEDS: DOCUSATE SODIUM 100 MG CAP PO SCH (08:44)
[2021-07-06] MEDS: ACETAMINOPHEN 500 MG TAB PO SCH (08:44)
--- NOTE | 2021-07-06 09:34 | Discharge Summary ---
Date of Service July 06, 2021 Admission HPI Per Admitting Provider Patient is an 81 yo male with PMHx of GERD and hyperlipidemia who presented to the ED with back pain radiating into the B/L LE s/p spinal surgery on 06/27/[address] Mckeon. The patient had been ambulating at home cautiously over the past couple of days since surgery. Starting yesterday, he wasn't able to ambulate without significant pain down his right leg. He was told not to sleep in the rocking chair, but that was the only place he could get comfortable. This morning, he woke up around 4AM in the rocking chair and couldn't get up the pain was so severe. He also noted edema in his legs, so they called the workers' compensation hearings officer doctor for advice. He was told to come to the ER to R/O DVT. The patient took 2 oxycodone 5 mg tablets this AM which didn't help the pain much at all. He currently has pain in the low back radiating down both legs. Worse in the left currently. he is able to move both legs. B/L Venous Doppler in the ED was negative for DVT. Patient notes that he has been slightly constipated but took something at home yesterday which helped relieve his bowels. He otherwise has been eating well, drinking well, and no N/V. No blood in stool. His notes that his bandage was saturated with serous/clear drainage yesterday. It was changed. Today, the bandage again has some yellow, clear drainage. No rash. Patient had similar hospitalizations about 10 years ago after initial back surgery. He ended up in the hospital for pain management at that time as well per his . Admission Exam Per Admitting Provider Physical Exam Constitutional: WD/WN, vitals as above Eyes: PERRL, conjunctivae normal, anicteric sclerae ENMT: external ear and nose normal, oropharynx normal Neck: trachea midline, no thyromegaly Respiratory: normal respiratory effort, lungs clear to auscultation Cardiovascular: RRR, no murmur, no edema Extremities: + edema (trace pitting edema B/L LE L>R) Gastrointestinal (Abdomen): normal bowel sounds, soft, nontender, no hepatosplenomegaly Musculoskeletal: Extremities: + abnormal strength (Slightly decreased strength in RLE compared to LLE with plantar flexion. ) 3/5 strength with plantar flexion Right, 4/5 left. Skin: Note large bandage over the lower back. Note some yellow/clear drainage coming through the bandage. Neurologic: Sensation intact B/L LE Psychiatric: A+Ox3, euthymic affect Principal Diagnosis S/P Lumbar spine surgery Postoperative Back Pain Discharge Exam Gen: WD/WN, NAD, A&O x3, sitting up at bedside HEENT: Normocephalic, atraumatic, conjunctivae moist, sclerae anicteric, mucous membranes moist. Lung: Clear to Auscultation bilaterally, no wheezes/rales/rhonchi Heart: Regular rate, regular rhythm, no murmurs, rubs, or gallops Abdomen: Soft, NT, ND +BS x 4 Extremities: No edema, teds in place, lumbar dressing CDI Skin: Warm, no rash, negative turgor. Discharge Data Allergies Allergy/AdvReac Type Severity Reaction Status Date / Time No Known Allergies Allergy Verified 07/02/21 11:01 Consultations 07/02/21 13:48 ED Decision to Admit Stat 07/03/21 08:00 Consult Orthopedic Surgery Routine Ordered Studies Chest X-Ray 07/02/21 10:16 XR chest 1V portable CLINICAL HISTORY: Atypical chest pain. COMPARISON STUDY: Chest radiograph June 06, 2021. FINDINGS: Lung volumes are normal. Lungs are clear. There is no pneumothorax or pleural effusion. Cardiac size is normal. Mediastinal contours are normal. There is no evidence for pulmonary edema. IMPRESSION: No acute cardiopulmonary findings. ACT 112: Negative or not required by law. Electronically signed by: Arnaldo Solis M.D. 07/02/2021 10:44 AM Venous Doppler Study 07/02/21 10:16 BILATERAL LOWER EXTREMITY VENOUS DOPPLER HISTORY: Bilateral leg pain. sent by ortho for poss DVT COMPARISON STUDY: None. FINDINGS: There is normal compressibility, flow, and augmentation within the bilateral lower extremity deep venous systems. IMPRESSION: No DVT within the right or left lower extremity. ACT 112: Negative or not required by law. Electronically signed by: Matt Solano M.D. 07/02/2021 12:28 PM Hospital Course (1) Postoperative back pain: (2) S/P spinal surgery: (3) Lower extremity pain, right: (4) GERD (gastroesophageal reflux disease): (5) Hyperlipidemia: (6) DVT prophylaxis: Patient is an 81 yo male who presented to ED with severe pain radiating down b oth legs s/p spine surgery on 06/27. He was admitted to hospital and orthopedic service was consulted, Dr. Mckeon. He was initially started on a morphine VISUAL DISPLAY MANAGER as well as IV dexamethasone. He was seen and evaluated by physical therapy. Gradually his pain improved and the VISUAL DISPLAY MANAGER pump was stopped. He was transition to oral narcotics as needed. He continued to ambulate and work with physical therapy. Prior to discharge she was ambulating 225 feet. He did anticipate going to acute rehab; however was declined due to improved functional status. On day of discharge she was hemodynamically stable and pain has improved significantly. He was tolerating regular diet and bowels are moving appropriately. He will follow-up with Dr. Mckeon in the outpatient setting and follow-up with PCP as scheduled. Total Time Total Time Spent Total Time Spent (In Minutes): 35 minutes Discharge Plan Discharge Items Patient Disposition: Home - Home Health Services Reason For Visit: BACK PAIN Discharge Diagnosis: S/P Lumbar spine surgery Postoperative Back Pain Condition on Discharge: Good Activity: Resume your previous activity Bathing: No limitations Driving/Machine Use: No driving while taking Narcotics. No driving until cleared by Dr. Mckeon Weightbearing: Full weightbearing Non-emergency contact: Primary Care Provider and Surgeon Call non-emergency contact if: you have any medication questions, your symptoms worsen, your pain is not controlled, your pain is worsening, your pain is unusual for you and your pain is concerning for you Follow-up/Referrals: Keith Cai [Primary Care Provider] - 07/11/21 1:30 pm Diet: Regular Addtl Attending Provider Instructions: ACTIVITY RECOMMENDATIONS: SELF CARE INSTRUCTIONS AFTER THORACIC/LUMBAR FUSIONS 1. You may walk to your tolerance. It is good exercise for your legs and back. Expect some back and intermittent leg aches and pains. 2. You may perform "counter-top" level activities (make a sandwich, zuri with a project, etc.). 3. No bending or lifting of more than 10 pounds or back twisting of any nature (roll like a log when turning in bed). 4. You may ride in a car for 20-30 minutes at a time. No driving until after your first visit with your doctor. 5. Frequent changes of position and restricting sitting to 30 minutes at a time will help limit the amount of back spasms and stiffness you may experience. 6. You may discontinue the use of ambulatory aids (cane, crutches, etc.) once your strength and confidence allow. 7. You may mechanical engineer the shower and let water strike your incision when you arrive home at least once daily. Do not take a tub bath, sit in a hot tub or go into a swimming pool until after your first recheck in the office. SPECIAL CARE INSTRUCTIONS: VERY IMPORTANT TO READ AND REVIEW A. Your surgical incision has been closed with a cosmetic suture under the skin that will dissolve in about 6 weeks. In 14 days, you can use a pair of clean scissors and cut the suture that is left outside of the skin at the ends of your incision. 1. The small skin tapes can be removed 7 days after surgery if they have not fallen off by that point. 2. You may keep the wound open to air as much as possible to promote healing after post-op day number 5 unless told otherwise by your doctor. 3. If you think the wound looks like it is becoming infected (redness or worsening drainage) and/or you are experiencing fever, chill or worsening back pain and muscle spasms, contact the office so that we may evaluate you as soon as possible. B. Complications are uncommon, but please contact us if you have any signs or symptoms of: 1. wound infection (fever higher than 102.5 degrees F, redness, separation of wound, drainage, or increasing pain from the incision) 2. blood clots in legs (pain, swelling, redness and warmth in legs) 3. urinary tract infection (fever higher than 102.5 degrees F, burning upon urination or increased frequency of urination) 4. nerve problems (inability to walk on your toes or heels, numbness, loss of bowel or bladder control) 5. any other symptoms that concern you C. Please call the office at if you have any concerns or questions about your operation or recovery. D. No smoking! Smoking drastically decreases the chance of a solid fusion. E. Do not take any anti-inflammatory medications (Indocin, Advil, Motrin, Aspirin, Naprosyn, etc.) as these may inhibit the chance of a solid fusion. Tylenol is okay to take for pain. MANAGING PAIN AFTER SPINAL SURGERY 1. Narcotic medication is intended for short-term use and will be provided for surgical pain. Surgical pain usually lasts for a period of 4-6 weeks. Narcotic medication includes Percocet, Vicodin, Darvocet, Tylenol #3 or Lortab. 2. Longer-term pain is more appropriately treated with non-narcotic medication such as Tylenol ES. 3. Muscle spasm is not appropriately treated with narcotics. Muscle relaxers such as Soma, Flexeril or Skelaxin can be used along with Tylenol ES. 4. Remember that we all live with some "aches and pains". This is not unusual or uncommon after an injury or as we get older. a. Back pain is expected and may include muscle spasms for 4 to 6 weeks after surgery. The pain should gradually improve. If the pain worsens for no apparent reason, please contact the office. b. Intermittent leg pain may also be experienced and should not be concerned about unless it worsens for no apparent reason. If so, please contact the office. 5. We will provide appropriate medication within the normal guidelines of their prescribed use. We will also be very cautious and aware of potential abuse and extended duration of patients' medication needs. a. Pain medications are for your comfort and to assist with sleep and rest so that the tissue can heal. They are not provided in order to return to normal activity and should not be used through the day. To do so or worsening pain at night can result from ongoing tissue damage and development of tolerance to the prescribed medicine. 6. Please allow 2-3 days to process refills. Prescriptions will not be mailed but must be picked up at the office. FOLLOW UP VISIT: Keep your scheduled follow-up appointment. Any questions, please call the office at . Pending Studies at Discharge: No Stand-Alone Forms: [employer], Smoking Cessation Medications and DC Order Prescriptions: Continued multivitamin Tablet 1 tab PO QAM RF: 0 ascorbic acid (vitamin C) [Vitamin C] 1,000 mg Tablet 1 g PO QAM RF: 0 atorvastatin 10 mg Tablet 5 mg PO Q OTHER DAY RF: 0 pantoprazole 40 mg Tablet,Delayed Release (Dr/Ec) 40 mg PO DAILY PRN (Reason: Acid Reflux) RF: 0 cholecalciferol (vitamin D3) [Vitamin D3] 50 mcg (2,000 unit) Tablet 50 mcg PO QAM RF: 0 PreserVision AREDS-2 250-90-40-1 mg Tablet,Chewable 1 tab PO AMPM RF: 0 omega 4-cxl-lsx-fish oil [Fish Oil] 1,000 mg (120 mg-180 mg) Capsule 1 cap PO QAM RF: 0 tramadol 50 mg tablet 50 mg PO Q6H PRN (Reason: pain, moderate) Qty: 15 RF: 0 Discontinued oxycodone 5 mg tablet 5 mg PO Q6H PRN (Reason: pain, severe) Qty: 30 RF: 0 No Action clonazepam 0.5 mg tablet 0.5 mg PO BID PRN (Reason: Anxiety) RF: 0 tamsulosin 0.4 mg capsule 0.4 mg PO DAILY RF: 0 oxycodone 5 mg tablet 5 mg PO Q6H PRN (Reason: Pain) RF: 0 Discharge Orders: Discharge Order (Routine); Ordered 07/06/21 Ordered By: Shari Truong Admission Data Admit Date/Time: 07/04/21 14:24 Attending Provider: Summer Agosto Admit Provider: Rosalba Springer Primary Care Provider: Keith Cai Other Providers: Rosalba Springer ; Todd Mckeon ; Shari Truong ; [facility] Other Interventions: Discharge Summary Assessment (RN) Last Done: 07/06/21 13:05 Supervising Physician Co-Signing Physician Notes Agreed with Shari SOTELO exam, discharge summary. Pt walked in the hallway with me in the presence of his with no discomfort. Continue home PT/OT and pain control. MD Triny
== END 2021-07-06 15:35 | disposition home health service (06) | DRG 948 ==
LOC: ED 10:00 → SUATTDRO 14:26 → INTOOBSV 14:26 → 3W 14:26

== ENCOUNTER 2021-07-08 11:44 | Observation (INO) ==
[2021-07-08] MEDS ORDERED: ONDANSETRON INJ 2 MG/ML 2 ML VIAL IV STA (12:01)
[2021-07-08] MEDS ORDERED: MoRPHine SULFATE 4 MG/ML 1 ML CARP\\VIAL IV STA (12:01)
--- NOTE | 2021-07-08 12:13 | Emergency Department Note ---
History of Present Illness General Chief complaint: Lower Extremity Injury/Pain Stated complaint: BACK PAIN, BOTH LEGS WEAK, FEET SWOLLEN Time Seen by Provider: 07/08/21 11:54 Source: patient and family ( who is at the bedside) Mode of arrival: ambulatory Limitations: no limitations History of Present Illness Maximum Pain Intensity: 8 This patient is an 81-year-old male who comes in with back pain and pain rating down both legs he had initial surgery done by Dr. Mckeon on the he came back this past Saturday through with pain he was supposed to go to rehab but did too well on his testing and so they sent him home. He has had a hard time since has been home is been no fall no change in bowel bladder function no fever chills. They have been called Dr. Mckeon's PA 3-4 times last 24 hours for pain management. He is tried ibuprofen oxycodone and tramadol. He feels weak in his legs but more so pain. No chest pain shortness of breath or palpitations. He is on no blood thinners. He had altered diarrhea only which did not show any evidence of DVT. He is some mild increased lower extremity edema. Home Medications Medication Instructions Recorded Confirmed Type ascorbic acid (vitamin C) 1,000 mg 1 g PO QAM 06/01/21 07/08/21 History tablet (Vitamin C) atorvastatin 10 mg tablet 5 mg PO Q OTHER DAY 06/01/21 07/08/21 History cholecalciferol (vitamin D3) 50 50 mcg PO QAM 06/01/21 07/08/21 History mcg (2,000 unit) tablet (Vitamin D3) multivitamin 1 tab PO QAM 06/01/21 07/08/21 History pantoprazole 40 mg tablet,delayed 40 mg PO DAILY PRN 06/01/21 07/08/21 History release vit C 250 mg-E 90 mg-zinc 40 1 tab PO AMPM 06/01/21 07/08/21 History mg-copper 1 bi-uyuyqm-gqpyxu chew tablet (PreserVision AREDS-2) omega 0-gts-ndy-fish oil 1,000 mg 1 cap PO QAM 07/02/21 07/08/21 History (120 mg-180 mg) capsule (Fish Oil) tramadol 50 mg tablet 50 mg PO Q6H PRN #15 tab 07/06/21 07/08/21 Rx clonazepam 0.5 mg tablet 0.5 mg PO BID PRN 07/08/21 07/08/21 History oxycodone 5 mg tablet 5 mg PO Q6H PRN 07/08/21 07/08/21 History tamsulosin 0.4 mg capsule 0.4 mg PO DAILY 07/08/21 07/08/21 History Allergies Allergy/AdvReac Type Severity Reaction Status Date / Time No Known Allergies Allergy Verified 07/02/21 11:01 Past Med/Surg History Medical History (Updated 07/08/21 @ 15:43 by Basil Sullivan MD) Degenerative disc disease GERD (gastroesophageal reflux disease) Well controlled and stable History of Mohs micrographic surgery for skin cancer Hyperlipidemia Kidney stones Passed on own Neurogenic claudication due to lumbar spinal stenosis Prostate cancer 10 yrs ago > with seeds for radiation Surgical History (Updated 07/08/21 @ 15:43 by Basil Sullivan MD) History of cardiac cath Over 15 yrs ago - no stents or bypass History of cataract surgery bilat History of colonoscopy History of esophagogastroduodenoscopy (EGD) History of lumbar surgery History of tonsillectomy S/P spinal surgery Family History Father Prostate cancer Hypertension Mother Breast cancer Social History Smoking Status: Never smoker Second Hand Exposure: No; Hx Alcohol Use: Yes Alcohol type: wine Hx Substance Use: No Preferred Language: Togolese Communication Ability: Effective Director Of Vital Statistics Required: No Beliefs That Will Affect Care: None Current Living Situation: Spouse Feels Safe at Home: Yes Assistive Devices: Cane and Walker Review of Systems A total of 10 systems reviewed and were otherwise negative Physical Exam Vital Signs Vital Signs - 24 hr 07/08/21 11:49 07/08/21 12:32 07/08/21 13:55 Temperature 36.6 C Temperature Source Temporal Artery Scan Pulse Rate 80 70 Pulse Rate [Left] 68 Pulse Rhythm Regular Regular Pulse Rhythm [Left] Regular Pulse Strength [Left] Normal Respiratory Rate 18 16 16 Respiratory Effort / Characteristics Non-Labored Spontaneous Non-Labored Spontaneous Respiratory Depth Normal Normal Respiratory Pattern Regular Regular Blood Pressure 109/64 Blood Pressure [Right Arm] 153/90 H Blood Pressure Mean 79 Blood Pressure Mean [Right Arm] 111 Blood Pressure Position Sitting Blood Pressure Position [Right Arm] Lying Pulse Oximetry 95 98 95 Oxygen Delivery Method Room Air Room Air Room Air Sepsis Recent Fever Within 48 Hours No Sepsis New/Unexplained Change in Mental Status No Sepsis Action Taken by Nursing No Action Required General: Well developed well nourished ill-appearing older male who appears in no acute distress, breathing comfortably on room air. Normal speech HEENT: Normal cephalic atraumatic. Pupils are equal round and reactive to light. Extraocular movements are intact. Oropharynx is pink with moist mucous membranes. No swelling of the mouth lips or tongue. Neck: Supple with a midline trachea. No meningeal signs or stiffness, no JVD or bruits. No Stridor. Chest: Clear to auscultation bilaterally. No wheezes or rhonchi. No increased work of breathing. Heart: Regular rate and rhythm without murmurs or gallops. Abdomen: Soft nontender, nondistended without rebound guarding or rigidity. Extremities: No cyanosis clubbing or edema. No calf tenderness or assymetry. 2+ distal pulses Spine/Back. Non tender to palpation. No CVA tenderness. Well-healing incision without redness, pus, drainage, tenderness, incisions intact Skin: Good turgor without rashes. Neurologic exam: Cranial nerves two through 12 are intact. Motor and sensation are intact and symmetrical throughout. Course Administered Medications Hydromorphone HCl (Hydromorphone Inj 0.5 Mg/0.5 Ml Syr) 0.25 mg IV Q6H PRN PRN Reason: Pain Stop: 07/22/21 14:40 Last Admin: 07/08/21 15:22 Dose: 0.25 mg Documented by: [id number] Discontinued Medications Ketorolac Tromethamine (Ketorolac Tromethamine 15 Mg/Ml Vial) 10 mg IV NOW ONE Stop: 07/08/21 14:03 Last Admin: 07/08/21 14:15 Dose: 10 mg Documented by: [id number] Morphine Sulfate (Morphine Sulfate 4 Mg/Ml 1 Ml Carp\Vial) 4 mg IV NOW STA Stop: 07/08/21 12:02 Last Admin: 07/08/21 12:28 Dose: 4 mg Documented by: [id number] Ondansetron HCl (Ondansetron Inj 2 Mg/Ml 2 Ml Vial) 4 mg IV NOW STA Stop: 07/08/21 12:02 Last Admin: 07/08/21 12:25 Dose: 4 mg Documented by: [id number] Medical Decision Making Differential Diagnosis Postop pain, sciatica, infection, inflammation, cardiac disease, electrolyte or metabolic abnormality Medical Records Attestation: I reviewed the patient's medical records. Home Medications Current Medication List: was personally reviewed by me Laboratory Data Attestation: I reviewed the patient's lab results. Result diagrams: 07/08/21 12:23 07/08/21 12:23 Lab Results 07/08/21 07/08/21 07/08/21 Range/Units 12:23 12: 12:23 WBC 10.54 (4.8-10.8) K/uL RBC 3.77 L (4.7-6.1) M/uL Hgb 11.6 L (14.0-18.0) g/dL Hct 35.7 L (42-52) % MCV 94.7 (80-100) fL MCH 30.8 (25-34) pg MCHC 32.5 (32-36) g/dL RDW Std Deviation 46.6 H (36.4-46.3) fL RDW Coeff of Sofia 13.7 (11.5-14.5) % Plt Count 259 (130-400) K/uL MPV 9.0 (7.4-10.4) fL Immature Gran % (Auto) 1.3 % Neut % (Auto) 73.2 % Lymph % (Auto) 16.3 % Edmunds % (Auto) 7.5 % Eos % (Auto) 1.6 % Baso % (Auto) 0.1 % Neut # (Auto) 7.71 H (1.4-6.5) K/uL Lymph # (Auto) 1.72 (1.2-3.4) K/uL Edmunds # (Auto) 0.79 H (0.11-0.59) K/uL Eos # (Auto) 0.17 (0-0.5) K/uL Baso # (Auto) 0.01 (0-0.2) K/uL Immature Gran # (Auto) 0.14 H (0.00-0.02) K/uL PT 10.9 (9.0-12.0) Seconds INR 1.0 (0.9-1.1) APTT 23.0 (21.0-31.0) Seconds PTT Ratio 0.8 Sodium 137 (136-145) mmol/L Potassium 4.0 (3.5-5.1) mmol/L Chloride 106 (98-107) mmol/L Carbon Dioxide 24 (21-32) mmol/L Anion Gap 7 (3-11) BUN 25 H (6-23) mg/dl Creatinine 0.83 (0.6-1.4) mg/dl Est Cr Clr Drug Dosing Not Reportable Est GFR ( Amer) 96.3 ml/min Est GFR (Non-Af Amer) 83.1 ml/min BUN/Creatinine Ratio 30.1 H (10-20) Glucose 126 H (70-99(Fasting)) mg/dl Calcium 8.5 (8.5-10.1) mg/dl Total Bilirubin 0.5 (0.2-1.0) mg/dl AST 17 (13-39) U/L ALT 23 (7-52) U/L Alkaline Phosphatase 66 (34-104) U/L Troponin I High Sens (0-20) pg/ml Total Protein 5.7 L (6.0-8.3) gm/dl Albumin 3.4 (3.4-5.0) gm/dl Globulin 2.3 L (2.5-4.0) gm/dl Albumin/Globulin Ratio 1.5 (0.9-2) SARS-CoV-2, RNA, NAAT (NEGATIVE) 07/08/21 07/08/21 Range/Units 12:35 14:10 WBC (4.8-10.8) K/uL RBC (4.7-6.1) M/uL Hgb (14.0-18.0) g/dL Hct (42-52) % MCV (80-100) fL MCH (25-34) pg MCHC (32-36) g/dL RDW Std Deviation (36.4-46.3) fL RDW Coeff of Sofia (11.5-14.5) % Plt Count (130-400) K/uL MPV (7.4-10.4) fL Immature Gran % (Auto) % Neut % (Auto) % Lymph % (Auto) % Edmunds % (Auto) % Eos % (Auto) % Baso % (Auto) % Neut # (Auto) (1.4-6.5) K/uL Lymph # (Auto) (1.2-3.4) K/uL Edmunds # (Auto) (0.11-0.59) K/uL Eos # (Auto) (0-0.5) K/uL Baso # (Auto) (0-0.2) K/uL Immature Gran # (Auto) (0.00-0.02) K/uL PT (9.0-12.0) Seconds INR (0.9-1.1) APTT (21.0-31.0) Seconds PTT Ratio Sodium (136-145) mmol/L Potassium (3.5-5.1) mmol/L Chloride (98-107) mmol/L Carbon Dioxide (21-32) mmol/L Anion Gap (3-11) BUN (6-23) mg/dl Creatinine (0.6-1.4) mg/dl Est Cr Clr Drug Dosing Est GFR ( Amer) ml/min Est GFR (Non-Af Amer) ml/min BUN/Creatinine Ratio (10-20) Glucose (70-99(Fasting)) mg/dl Calcium (8.5-10.1) mg/dl Total Bilirubin (0.2-1.0) mg/dl AST (13-39) U/L ALT (7-52) U/L Alkaline Phosphatase (34-104) U/L Troponin I High Sens 5.9 (0-20) pg/ml Total Protein (6.0-8.3) gm/dl Albumin (3.4-5.0) gm/dl Globulin (2.5-4.0) gm/dl Albumin/Globulin Ratio (0.9-2) SARS-CoV-2, RNA, NAAT NEGATIVE (NEGATIVE) Imaging Data Attestation: I personally reviewed and interpreted this imaging study as follows: My Impression: Chest x-ray no acute infiltrate, failure, pneumothorax seen Radiologist's Impression: Chest X-Ray 07/08/21 13:23 XR chest 1V portable HISTORY: 81 years-old Male lower ext edema lower extremity edema with clinical concern for possible pulmonary edema COMPARISON: Chest radiograph 07/02/2021 TECHNIQUE: Portable AP view of the chest FINDINGS: The cardiomediastinal and hilar silhouettes are unchanged. No pneumothorax, pleural effusion, airspace consolidation or overt pulmonary edema. The bones of the chest appear grossly intact. IMPRESSION: No acute process. ACT 112: Negative or not required by law. The above report was generated using voice recognition software. It may contain grammatical, syntax or spelling errors. Electronically signed by: Stef Perez M.D. 07/08/2021 1:43 PM ECG Data Attestation: I personally reviewed and interpreted this ECG as follows: Indication: + weakness Rate (beats per minute): 86 Rhythm: + normal sinus ECG Intervals/blocks: + Right Bundle branch block, + Normal QT and + Normal CA ECG [place]: + Normal ECG ST segments: + Normal ST segments ECG Findings: no PACs or no PVCs Comparison ECG Date: from (07/02/21) Change: no significant change MDM Narrative This Patient comes in with back and leg pain postop. As mentioned above they were going to send her to rehab but he did too well however since has been home he has been having a hard time. He does not have any definite neurologic deficits on exam is nothing just cauda equina. IV access was established was given morphine 4 mg IV and Zofran 4 mg IV. I did talk to Dr. Reno Espinoza's PA, he is actually out of town until Saturday, she did not feel that the patient had MRI acutely and felt that it was most likely related to the ongoing condition and needed to get into rehab. EKG shows no change compared to old patient has no fever or white count to suggest infection. He has no significant anemia in fact his hemoglobin looks better than before. EKG does not suggest ischemia troponin is negative. Chest x-ray does not show congestive heart failure pneumonia or pneumothorax. He does have some mild edema in the legs which may be more from inactivity. He did have a recent ultrasound as well last visit. At this point the patient does need admitted for pain management and likely rehab placement and further evaluation. Have consulted Dr. Huitron to see the patient in ER for these measures. Continuous cardiac monitoring: Orders placed in EMR for continuous cardiac monitoring. Upon my interpretation the patient will be a normal sinus rhythm with a rate of 81 Impression & Plan Back pain with radiculopathy, S/P spinal surgery, Bilateral edema of lower extremity, Lab test negative for COVID-19 virus Discharge Plan Visit Data Chief Complaint: Lower Extremity Injury/Pain Stated Complaint: BACK PAIN, BOTH LEGS WEAK, FEET SWOLLEN ED Provider: Basil Sullivan Discharge Problem: Back pain with radiculopathy, S/P spinal surgery, Bilateral edema of lower extremity, Lab test negative for COVID-19 virus Forms Stand Alone Forms: [facility] Prescriptions Prescriptions: No Action multivitamin Tablet 1 tab PO QAM RF: 0 ascorbic acid (vitamin C) [Vitamin C] 1,000 mg Tablet 1 g PO QAM RF: 0 atorvastatin 10 mg Tablet 5 mg PO Q OTHER DAY RF: 0 pantoprazole 40 mg Tablet,Delayed Release (Dr/Ec) 40 mg PO DAILY PRN (Reason: Acid Reflux) RF: 0 cholecalciferol (vitamin D3) [Vitamin D3] 50 mcg (2,000 unit) Tablet 50 mcg PO QAM RF: 0 PreserVision AREDS-2 250-90-40-1 mg Tablet,Chewable 1 tab PO AMPM RF: 0 clonazepam 0.5 mg tablet 0.5 mg PO BID PRN (Reason: Anxiety) RF: 0 tamsulosin 0.4 mg capsule 0.4 mg PO DAILY RF: 0 oxycodone 5 mg tablet 5 mg PO Q6H PRN (Reason: Pain) RF: 0 omega 7-gpo-vbx-fish oil [Fish Oil] 1,000 mg (120 mg-180 mg) Capsule 1 cap PO QAM RF: 0 tramadol 50 mg tablet 50 mg PO Q6H PRN (Reason: pain, moderate) Qty: 15 RF: 0 Referrals Referrals: Keith Cai [Primary Care Provider] -
[2021-07-08 12:36] LABS: Basophils # (auto) 0.01 K/uL (0-0.2); Basophils % (auto) 0.1 %; Eosinophils # (auto) 0.17 K/uL (0-0.5); Eosinophils % (auto) 1.6 %; Hematocrit (blood only) 35.7 % (42-52); Hemoglobin 11.6 g/dL (14.0-18.0); Immature Granulocytes # (auto) 0.14 K/uL (0.00-0.02); Immature Granulocytes % (auto) 1.3 %; Lymphocytes # (auto) 1.72 K/uL (1.2-3.4); Lymphocytes % (auto) 16.3 %; Mean Corpuscular Hemoglobin 30.8 pg (25-34); Mean Corpuscular Hgb Conc 32.5 g/dL (32-36); Mean Corpuscular Volume 94.7 fL (80-100); Monocytes # (auto) 0.79 K/uL (0.11-0.59); Monocytes % (auto) 7.5 %; Neutrophils # (auto) 7.71 K/uL (1.4-6.5); Neutrophils % (auto) 73.2 %; Platelet Count 259 K/uL (130-400); RDW Coefficient of Variation 13.7 % (11.5-14.5); RDW Standard Deviation 46.6 fL (36.4-46.3); Red Blood Count 3.77 M/uL (4.7-6.1); White Blood Count 10.54 K/uL (4.8-10.8)
[2021-07-08 12:49] LABS: Partial Thromboplastin Ratio 0.8; Prothrombin Time 10.9 Seconds (9.0-12.0)
[2021-07-08 12:55] LABS: Alanine Aminotransferase 23 U/L (7-52); Albumin Globulin Ratio 1.5 (0.9-2); Albumin Level 3.4 gm/dl (3.4-5.0); Alkaline Phosphatase 66 U/L (34-104); Anion Gap 7 (3-11); Aspartate Aminotransferase 17 U/L (13-39); BUN Creatinine Ratio 30.1 (10-20); Bilirubin,Total 0.5 mg/dl (0.2-1.0); Blood Urea Nitrogen 25 mg/dl (6-23); Calcium 8.5 mg/dl (8.5-10.1); Carbon Dioxide 24 mmol/L (21-32); Chloride 106 mmol/L (98-107); Est GFR (African American) 96.3 ml/min; Est GFR (Non-African American) 83.1 ml/min; Globulin 2.3 gm/dl (2.5-4.0); Glucose 126 mg/dl (70-99(Fasting)); Sodium 137 mmol/L (136-145); Total Protein 5.7 gm/dl (6.0-8.3)
--- NOTE | 2021-07-08 13:44 | XRay Report ---
XR chest 1V portable HISTORY: 81 years-old Male lower ext edema lower extremity edema with clinical concern for possible pulmonary edema COMPARISON: Chest radiograph 07/02/2021 TECHNIQUE: Portable AP view of the chest FINDINGS: The cardiomediastinal and hilar silhouettes are unchanged. No pneumothorax, pleural effusion, airspac e consolidation or overt pulmonary edema. The bones of the chest appear grossly intact. IMPRESSION: No acute process. ACT 112: Negative or not required by law. The above report was generated using voice recognition software. It may contain grammatical, syntax o r spelling errors. Electronically signed by: Stef Perez M.D. 07/08/2021 1:43 PM
[2021-07-08] MEDS ORDERED: KETOROLAC TROMETHAMINE 15 MG/ML VIAL IV ONE (14:02)
--- NOTE | 2021-07-08 14:46 | History & Physical Report ---
Date of Service July 08, 2021 Assessment & Plan (1) Postoperative back pain: Plan: Status post lumbar spinal surgery on 06/27/2021 for neurogenic claudication due to lumbar spinal stenosis Second admission in the hospital following surgery for continued pain and weak ness Has been very difficult by the to take care of him at home with high risk of falling Will give oral Percocet and IV Dilaudid as needed for pain control We will get PT and OT evaluation Will likely need rehab placement (2) S/P spinal surgery: Plan: Status post lumbar spinal surgery as above Surgical site seems to be intact without any infection (3) Back pain with radiculopathy: Plan: Still has some back pain with radiculopathy as per the patient No bladder and or bowel problem (4) Hyperlipidemia: Plan: Continue statin (5) Prostate cancer: Plan: Has had therapy before No acute issues DVT prophylaxis Subcu Lovenox CODE STATUS Full History of Present Illness Chief Complaint: Intractable back pain with ambulatory dysfunction Primary Care Provider: Keith Cai He is an 81-year-old male with significant past medical history of prostate cancer status post brachytherapy, hyperlipidemia, GERD and recent history of lumbar back surgery on of this month due to neurogenic claudication secondary to spinal stenosis apparently was sent home on . He was readmitted on with ongoing back pain and has had physical therapy while in the hospital. He was discharged home on of this month as he did not meet the criteria for rehab as per the physical therapist. His oxycodone was discontinued on discharge but tramadol was continued to control pain. He complains to have increasing pain in the back and it has been difficult for him to get out of bed and ambulate due to increasing pain and weakness. He is back to ER for reevaluation. Complains to have lower back pain with minimal radiation to the left leg and weakness. The pain is worse with ambulation. Denies any urine and bowel problem and denies any other significant symptoms. Allergies Allergy/AdvReac Type Severity Reaction Status Date / Time No Known Allergies Allergy Verified 07/02/21 11:01 Home Medications Medication Instructions Recorded Confirmed Type ascorbic acid (vitamin C) 1,000 mg 1 g PO QAM 06/01/21 07/08/21 History tablet (Vitamin C) atorvastatin 10 mg tablet 5 mg PO Q OTHER DAY 06/01/21 07/08/21 History cholecalciferol (vitamin D3) 50 50 mcg PO QAM 06/01/21 07/08/21 History mcg (2,000 unit) tablet (Vitamin D3) multivitamin 1 tab PO QAM 06/01/21 07/08/21 History pantoprazole 40 mg tablet,delayed 40 mg PO DAILY PRN 06/01/21 07/08/21 History release vit C 250 mg-E 90 mg-zinc 40 1 tab PO AMPM 06/01/21 07/08/21 History mg-copper 1 jk-vqjkwe-ptaldw chew tablet (PreserVision AREDS-2) omega 7-gau-ygd-fish oil 1,000 mg 1 cap PO QAM 07/02/21 07/08/21 History (120 mg-180 mg) capsule (Fish Oil) tramadol 50 mg tablet 50 mg PO Q6H PRN #15 tab 07/06/21 07/08/21 Rx clonazepam 0.5 mg tablet 0.5 mg PO BID PRN 07/08/21 07/08/21 History oxycodone 5 mg tablet 5 mg PO Q6H PRN 07/08/21 07/08/21 History tamsulosin 0.4 mg capsule 0.4 mg PO DAILY 07/08/21 07/08/21 History Past Med/Surg History Medical History (Updated 07/08/21 @ 14:56 by Zen Huitron MD) Degenerative disc disease GERD (gastroesophageal reflux disease) Well controlled and stable History of Mohs micrographic surgery for skin cancer Hyperlipidemia Kidney stones Passed on own Neurogenic claudication due to lumbar spinal stenosis Prostate cancer 10 yrs ago > with seeds for radiation Surgical History History of cardiac cath Over 15 yrs ago - no stents or bypass History of cataract surgery bilat History of colonoscopy History of esophagogastroduodenoscopy (EGD) History of lumbar surgery History of tonsillectomy S/P spinal surgery Family History Father Prostate cancer Hypertension Mother Breast cancer Social History Smoking Status: Never smoker Second Hand Exposure: No; Hx Alcohol Use: Yes Alcohol type: wine Hx Substance Use: No Preferred Language: Pashto Communication Ability: Effective Grader Operator Required: No Beliefs That Will Affect Care: None Current Living Situation: Spouse Feels Safe at Home: Yes Assistive Devices: Cane and Walker Review of Systems Review of Systems: All systems reviewed & are unremarkable except as noted in HPI & below Physical Exam Physical Exam: Lying in bed with minimal distress Constitutional: well developed, well nourished, + ill appearing and average body habitus Eyes: PERRL, conjunctivae normal, anicteric sclerae ENMT: external ear and nose normal, oropharynx normal Neck: trachea midline, no thyromegaly Respiratory: no respiratory distress Auscultation: lungs clear to auscultation bilaterally Cardiovascular: Rate/Rhythm: regular rate and regular rhythm; not tachycardic Heart Sounds: normal S1 and normal S2; no murmur Extremities: + edema (Trace edema on the right side) Gastrointestinal (Abdomen): Inspection/Auscultation: normal bowel sounds; abdomen not distended Percussion/Palpation: abdomen soft; abdomen nontender Musculoskeletal: No acute arthritis involving any joint. Localized tenderness at the back. Surgical site seems to be intact. No definite radiculopathy Neurologic: Alert awake and oriented x3. Generally weak Lymphatic: no cervical or axillary lymphadenopathy Results & Data Results & Data ([facility]) Vital Signs (Past 12 Hours) Vital Signs Temp Pulse Pulse Resp BP BP Pulse Ox 07/08/21 13:55 68 16 153/90 H 95 07/08/21 12:32 70 16 98 07/08/21 11:49 36.6 C 80 18 109/64 95 Laboratory Results Short CBC 07/08/21 Range/Units 12:23 WBC 10.54 (4.8-10.8) K/uL Hgb 11.6 L (14.0-18.0) g/dL Hct 35.7 L (42-52) % Plt Count 259 (130-400) K/uL BMP 07/08/21 12:23 Sodium 137 Potassium 4.0 Chloride 106 Carbon Dioxide 24 BUN 25 H Creatinine 0.83 Glucose 126 H Calcium 8.5 Liver Function 07/08/21 Range/Units 12:23 Total Bilirubin 0.5 (0.2-1.0) mg/dl AST 17 (13-39) U/L ALT 23 (7-52) U/L Alkaline Phosphatase 66 (34-104) U/L Albumin 3.4 (3.4-5.0) gm/dl Medications Administered Current Inpatient Medications Hydromorphone HCl (Hydromorphone Inj 0.5 Mg/0.5 Ml Syr) 0.25 mg IV Q6H PRN PRN Reason: Pain Stop: 07/22/21 14:40 Code Status & VTE Plan VTE Prophylaxis Plan VTE Prophylaxis will be ordered: Yes
[2021-07-08] MEDS: HYDROmorphone INJ 0.5 MG/0.5 ML SYR IV PRN ×2 (15:22→21:40)
[2021-07-08 16:50] LABS: Appearance Urine Clear (Clear); Bacteria Urine Automated Negative (Negative); Bilirubin Urine Negative (Negative); Blood Urine Trace (Negative); Color Urine Yellow; Epithelial Cell Urine Auto 0-5 /lpf (0-5); Glucose Urine UA Negative (Negative); Ketones Urine Negative (Negative); Leukocyte Esterase Urine Negative (Negative); Nitrite Urine Negative (Negative); Protein Urine Negative (Negative); Specific Gravity Urine 1.021 (1.000-1.030); Urobilinogen Urine Negative (Negative); pH Urine 6.5 (4.5-7.5)
[2021-07-08] MEDS ORDERED: PANTOprazole 40 MG TAB PO PRN (17:03)
[2021-07-08] MEDS ORDERED: NON-FORMULARY MEDICATION (Vit C,E-Zn-Coppr-Lutein-Zeaxan [Preservision Areds-2] 250-90-40- PO SCH (17:03)
[2021-07-08] MEDS: traMADol HCL 50 MG TABLET PO PRN ×2 (17:18→23:53)
[2021-07-08] MEDS: clonazePAM 0.5 MG TAB PO PRN (17:18)
[2021-07-08] MEDS: oxyCODONE HCL IR 5 MG TAB (IMMEDIATE RELEASE) PO PRN ×2 (17:18→22:42)
[2021-07-08] MEDS: ENOXAPARIN INJ 40 MG/0.4 ML SYR SQ SCH (20:50)
[2021-07-08] MEDS: ATORVASTATIN 10 MG TAB PO SCH (20:50)
[2021-07-08] MEDS: LIDOCAINE 5% 1 PATCH TD SCH (22:43)
[2021-07-09] MEDS: HYDROmorphone INJ 0.5 MG/0.5 ML SYR IV PRN ×4 (03:34→22:54)
[2021-07-09] MEDS: oxyCODONE HCL IR 5 MG TAB (IMMEDIATE RELEASE) PO PRN ×3 (04:36→18:32)
[2021-07-09] MEDS: traMADol HCL 50 MG TABLET PO PRN ×3 (05:31→19:30)
[2021-07-09] MEDS: OMEGA-3 (PURIFIED FISH OIL) 1 GM CAP PO SCH (07:26)
[2021-07-09] MEDS: CHOLECALCIFEROL 1,000 UNITS 25 MCG TAB PO SCH (07:26)
[2021-07-09] MEDS: ASCORBIC ACID 500 MG TAB PO SCH (07:26)
[2021-07-09] MEDS: MULTIVITAMIN TAB PO SCH (07:26)
[2021-07-09] MEDS: TAMSULOSIN HCL 0.4 MG CAP PO SCH (07:26)
--- NOTE | 2021-07-09 14:56 | Hospitalist Progress Note ---
Date of Service July 09, 2021 Assessment & Plan (1) Postoperative back pain: Plan: Status post lumbar spinal surgery on 06/27/2021 for neurogenic claudication due to lumbar spinal stenosis Second admission in the hospital following surgery for continued pain and weakness Has been very difficult by the to take care of him at home with high risk of falling Will give oral Percocet and IV Dilaudid as needed for pain control We will get PT and OT evaluation Will likely need rehab placement Pain seems to be reasonably controlled with added pain medications (2) S/P spinal surgery: Plan: Status post lumbar spinal surgery as above Surgical site seems to be intact without any infection No need to have Ortho evaluation while in the hospital this time (3) Back pain with radiculopathy: Plan: Still has some back pain with radiculopathy as per the patient No bladder and or bowel problem (4) Hyperlipidemia: Plan: Continue statin (5) Prostate cancer: Plan: Has had therapy before No acute issues DVT prophylaxis Subcu Lovenox CODE STATUS Full Admission and Anticipated Discharge Date Admission Date: July 08, 2021 Subjective 07/09/2021 The patient was seen and examined in medical floor He complains to have pain at the back without radiation Has not been for therapy yet Will need rehab placement Review of Systems Review of Systems: All systems reviewed and are unremarkable except as noted below Musculoskeletal: Back pain chronic without significant radiation. Status post back surgery Physical Exam Physical Exam: Lying in bed with minimal distress Constitutional: well developed, well nourished, + ill appearing and average body habitus Eyes: PERRL, conjunctivae normal, anicteric sclerae ENMT: external ear and nose normal, oropharynx normal Neck: trachea midline, no thyromegaly Respiratory: no respiratory distress Auscultation: lungs clear to auscultation bilaterally Cardiovascular: Rate/Rhythm: regular rate and regular rhythm; not tachycardic Heart Sounds: normal S1 and normal S2; no murmur Extremities: + edema (Trace edema on the right side) Gastrointestinal (Abdomen): Inspection/Auscultation: normal bowel sounds; abdomen not distended Percussion/Palpation: abdomen soft; abdomen nontender Musculoskeletal: No acute arthritis in any joint Lymphatic: no cervical or axillary lymphadenopathy Results & Data Results & Data ([facility]) Vital Signs (Past 12 Hours) Vital Signs Temp Pulse Resp BP Pulse Ox 07/09/21 07:37 36.7 C 84 22 160/90 H 94 Laboratory Results Urine 07/08/21 Range/Units 16:35 Urine Color Yellow Urine Appearance Clear (Clear) Urine pH 6.5 (4.5-7.5) Ur Specific [place] 1.021 (1.000-1.030) Urine Protein Negative (Negative) Urine Glucose (UA) Negative (Negative) Medications Administered Current Inpatient Medications Ascorbic Acid (Ascorbic Acid 500 Mg Tab) 1,000 mg PO [facility] Stop: 08/08/21 08:59 Last Admin: 07/09/21 07:26 Dose: 1,000 mg Documented by: Atorvastatin Calcium (Atorvastatin 10 Mg Tab) 5 mg PO Q2D@2100 [facility] Stop: 08/07/21 20:59 Last Admin: 07/08/21 20:50 Dose: 5 mg Documented by: Clonazepam (Clonazepam 0.5 Mg Tab) 0.5 mg PO BID PRN PRN Reason: Anxiety Stop: 08/07/21 17:02 Last Admin: 07/08/21 17:18 Dose: 0.5 mg Documented by: Enoxaparin Sodium (Enoxaparin Inj 40 Mg/0.4 Ml Syr) 40 mg SQ HS [facility] Stop: 08/07/21 20:59 Last Admin: 07/08/21 20:50 Dose: 40 mg Documented by: Fish Oil ([place]-3 (Purified Fish Oil) 1 Gm Cap) 1 gm PO [facility] Stop: 08/08/21 08:59 Last Admin: 07/09/21 07:26 Dose: 1 gm Documented by: Hydromorphone HCl (Hydromorphone Inj 0.5 Mg/0.5 Ml Syr) 0.25 mg IV Q6H PRN PRN Reason: Pain Stop: 07/22/21 14:40 Last Admin: 07/09/21 09:53 Dose: 0.25 mg Documented by: Lidocaine (Lidocaine 5% 1 Patch) 2 patch TD [facility] Stop: 08/07/21 22:09 Last Admin: 07/08/21 22:43 Dose: 2 patch Documented by: Miscellaneous (Remove Lidoderm Patch) 1 ea N/A DAILY@0900 [facility] Stop: 08/08/21 08:59 Last Admin: 07/09/21 08:06 Dose: Not Given Documented by: Multivitamins (Multivitamin Tab) 1 tab PO [facility] Stop: 08/08/21 08:59 Last Admin: 07/09/21 07:26 Dose: 1 tab Documented by: Oxycodone HCl (Oxycodone Hcl Ir 5 Mg Tab (Immediate Release)) 5 mg PO Q6H PRN PRN Reason: Pain Stop: 07/22/21 17:02 Last Admin: 07/09/21 12:05 Dose: 5 mg Documented by: Pantoprazole Sodium (Pantoprazole 40 Mg Tab) 40 mg PO DAILY PRN PRN Reason: Acid Reflux Stop: 08/07/21 17:02 Last Admin: 07/08/21 19:48 Dose: 40 mg Documented by: Tamsulosin HCl (Tamsulosin Hcl 0.4 Mg Cap) 0.4 mg PO DAILY [facility] Stop: 08/08/21 08:59 Last Admin: 07/09/21 07:26 Dose: 0.4 mg Documented by: Tramadol HCl (Tramadol Hcl 50 Mg Tablet) 50 mg PO Q6H PRN PRN Reason: pain, moderate Stop: 08/07/21 17:02 Last Admin: 07/09/21 13:40 Dose: 50 mg Documented by: Vitamin D (Cholecalciferol 1,000 Units 25 Mcg Tab) 2,000 units PO QAM [facility] Stop: 08/08/21 08:59 Last Admin: 07/09/21 07:26 Dose: 2,000 units Documented by:
[2021-07-09] MEDS: LIDOCAINE 5% 1 PATCH TD SCH (19:30)
[2021-07-09] MEDS: ENOXAPARIN INJ 40 MG/0.4 ML SYR SQ SCH (19:31)
[2021-07-09] MEDS: clonazePAM 0.5 MG TAB PO PRN (22:25)
[2021-07-10] MEDS: oxyCODONE HCL IR 5 MG TAB (IMMEDIATE RELEASE) PO PRN ×4 (00:15→22:08)
[2021-07-10] MEDS: traMADol HCL 50 MG TABLET PO PRN ×2 (01:41→07:36)
[2021-07-10] MEDS: HYDROmorphone INJ 0.5 MG/0.5 ML SYR IV PRN ×3 (05:24→21:09)
--- NOTE | 2021-07-10 06:30 | Electrocardiogram Report ---
Test Reason : Blood Pressure : / mmHG Vent. 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
[2021-07-10] MEDS: CHOLECALCIFEROL 1,000 UNITS 25 MCG TAB PO SCH (08:33)
[2021-07-10] MEDS: ASCORBIC ACID 500 MG TAB PO SCH (08:33)
[2021-07-10] MEDS: MULTIVITAMIN TAB PO SCH (08:33)
[2021-07-10] MEDS: TAMSULOSIN HCL 0.4 MG CAP PO SCH (08:33)
[2021-07-10] MEDS: OMEGA-3 (PURIFIED FISH OIL) 1 GM CAP PO SCH (08:34)
[2021-07-10] MEDS ORDERED: MAGNESIUM HYDROXIDE SUSP 30 ML UDC PO ONE (16:54)
[2021-07-10] MEDS: POLYETHYLENE (MIRALAX) 17 GM PACK PO SCH (17:31)
--- NOTE | 2021-07-10 17:45 | Hospitalist Progress Note ---
Date of Service July 10, 2021 Assessment & Plan (1) Postoperative back pain: Plan: Status post lumbar spinal surgery on 06/27/2021 for neurogenic claudication due to lumbar spinal stenosis Second admission in the hospital following surgery for continued pain and weakness Has been very difficult by the to take care of him at home with high risk of falling Will give oral Percocet and IV Dilaudid as needed for pain control We will get PT and OT evaluation Will likely need rehab placement Pain seems to be reasonably controlled with added pain medications Will need to continue physical therapy and will need placement Constipation Secondary to use of narcotic Will give MiraLAX and milk of magnesia (2) S/P spinal surgery: Plan: Status post lumbar spinal surgery as above Surgical site seems to be intact without any infection No need to have Ortho evaluation while in the hospital this time (3) Back pain with radiculopathy: Plan: Still has some back pain with radiculopathy as per the patient No bladder and or bowel problem Does not have any radiculopathic symptoms at this time (4) Hyperlipidemia: Plan: Continue statin (5) Prostate cancer: Plan: Has had therapy before No acute issues DVT prophylaxis Subcu Lovenox CODE STATUS Full Admission and Anticipated Discharge Date Admission Date: July 10, 2021 Subjective 07/09/2021 The patient was seen and examined in medical floor He complains to have pain at the back without radiation Has not been for therapy yet Will need rehab placement 07/10/2021 The patient was seen and examined in medical floor He has been complaining of pain at the back without radiation He will need to be placed Review of Systems Review of Systems: All systems reviewed and are unremarkable except as noted below Musculoskeletal: Back pain chronic without significant radiation. Status post back surgery Physical Exam Physical Exam: Lying in bed with minimal distress Constitutional: well developed, well nourished, + ill appearing and average body habitus Eyes: PERRL, conjunctivae normal, anicteric sclerae ENMT: external ear and nose normal, oropharynx normal Neck: trachea midline, no thyromegaly Respiratory: no respiratory distress Auscultation: lungs clear to auscultation bilaterally Cardiovascular: Rate/Rhythm: regular rate and regular rhythm; not tachycardic Heart Sounds: normal S1 and normal S2; no murmur Extremities: + edema (Trace edema on the right side) Gastrointestinal (Abdomen): Inspection/Auscultation: normal bowel sounds; abd omen not distended Percussion/Palpation: abdomen soft; abdomen nontender Lymphatic: no cervical or axillary lymphadenopathy Results & Data Results & Data ([facility]) Vital Signs (Past 12 Hours) Vital Signs Temp Pulse Resp BP Pulse Ox 07/10/21 15:10 36.9 C 86 17 106/66 94 07/10/21 07:41 36.6 C 79 16 137/75 93 Medications Administered Current Inpatient Medications Ascorbic Acid (Ascorbic Acid 500 Mg Tab) 1,000 mg PO QAM [facility] Stop: 08/08/21 08:59 Last Admin: 07/10/21 08:33 Dose: 1,000 mg Documented by: Atorvastatin Calcium (Atorvastatin 10 Mg Tab) 5 mg PO Q2D@2100 [facility] Stop: 08/07/21 20:59 Last Admin: 07/08/21 20:50 Dose: 5 mg Documented by: Clonazepam (Clonazepam 0.5 Mg Tab) 0.5 mg PO BID PRN PRN Reason: Anxiety Stop: 08/07/21 17:02 Last Admin: 07/09/21 22:25 Dose: 0.5 mg Documented by: Enoxaparin Sodium (Enoxaparin Inj 40 Mg/0.4 Ml Syr) 40 mg SQ [facility] Stop: 08/07/21 20:59 Last Admin: 07/09/21 19:31 Dose: 40 mg Documented by: Fish Oil ([place]-3 (Purified Fish Oil) 1 Gm Cap) 1 gm PO QAM [facility] Stop: 08/08/21 08:59 Last Admin: 07/10/21 08:34 Dose: 1 gm Documented by: Lidocaine (Lidocaine 5% 1 Patch) 2 patch TD HS [facility] Stop: 08/07/21 22:09 Last Admin: 07/09/21 19:30 Dose: 2 patch Documented by: Miscellaneous (Remove Lidoderm Patch) 1 ea N/A DAILY@0900 [facility] Stop: 08/08/21 08:59 Last Admin: 07/10/21 08:34 Dose: 1 ea Documented by: Multivitamins ([facility]ivitamin Tab) [facility] Stop: 08/08/21 08:59 Last Admin: 07/10/21 08:33 Dose: 1 tab Documented by: Oxycodone HCl (Oxycodone Hcl Ir 5 Mg Tab (Immediate Release)) 5 mg PO Q6H PRN PRN Reason: Pain Stop: 07/22/21 17:02 Last Admin: 07/10/21 16:40 Dose: 5 mg Documented by: Pantoprazole Sodium (Pantoprazole 40 Mg Tab) 40 mg PO DAILY PRN PRN Reason: Acid Reflux Stop: 08/07/21 17:02 Last Admin: 07/08/21 19:48 Dose: 40 mg Documented by: Polyethylene Glycol (Polyethylene (Miralax) 17 Gm Pack) 17 gm PO DAILY [facility] Stop: 08/09/21 16:59 Last Admin: 07/10/21 17:31 Dose: 17 gm Documented by: Tamsulosin HCl (Tamsulosin Hcl 0.4 Mg Cap) 0.4 mg PO DAILY [facility] Stop: 08/08/21 08:59 Last Admin: 07/10/21 08:33 Dose: 0.4 mg Documented by: Tramadol HCl (Tramadol Hcl 50 Mg Tablet) 50 mg PO Q6H PRN PRN Reason: pain, moderate Stop: 08/07/21 17:02 Last Admin: 07/10/21 07:36 Dose: 50 mg Documented by: Vitamin D (Cholecalciferol 1,000 Units 25 Mcg Tab) 2,000 units PO QAM [facility] Stop: 08/08/21 08:59 Last Admin: 07/10/21 08:33 Dose: 2,000 units Documented by:
[2021-07-10] MEDS: ATORVASTATIN 10 MG TAB PO SCH (19:45)
[2021-07-10] MEDS: LIDOCAINE 5% 1 PATCH TD SCH (19:48)
[2021-07-10] MEDS: ENOXAPARIN INJ 40 MG/0.4 ML SYR SQ SCH (19:54)
[2021-07-10] MEDS ORDERED: ONDANSETRON INJ 2 MG/ML 2 ML VIAL IV PRN (20:24)
[2021-07-10] MEDS ORDERED: PANTOprazole 40 MG in SYRINGE 0 ML IV SCH (20:25)
[2021-07-10] MEDS: clonazePAM 0.5 MG TAB PO PRN (22:08)
[2021-07-11] MEDS: HYDROmorphone INJ 0.5 MG/0.5 ML SYR IV PRN ×2 (01:03→23:57)
[2021-07-11] MEDS: traMADol HCL 50 MG TABLET PO PRN ×2 (03:08→22:02)
[2021-07-11] MEDS: ASCORBIC ACID 500 MG TAB PO SCH (07:54)
[2021-07-11] MEDS: MULTIVITAMIN TAB PO SCH (07:54)
[2021-07-11] MEDS: CHOLECALCIFEROL 1,000 UNITS 25 MCG TAB PO SCH (07:54)
[2021-07-11] MEDS: OMEGA-3 (PURIFIED FISH OIL) 1 GM CAP PO SCH (07:54)
[2021-07-11] MEDS: TAMSULOSIN HCL 0.4 MG CAP PO SCH (07:54)
[2021-07-11] MEDS: POLYETHYLENE (MIRALAX) 17 GM PACK PO SCH (07:55)
[2021-07-11 09:01] LABS: Creatinine Clr Calc Pharmacy 77.5 ml/min; Est GFR (African American) 97.3 ml/min; Est GFR (Non-African American) 83.9 ml/min
[2021-07-11] MEDS: PANTOprazole 40 MG TAB PO SCH (09:41)
[2021-07-11] MEDS: oxyCODONE HCL IR 5 MG TAB (IMMEDIATE RELEASE) PO PRN ×2 (12:15→20:34)
--- NOTE | 2021-07-11 16:23 | Hospitalist Progress Note ---
Date of Service July 11, 2021 Assessment & Plan (1) Postoperative back pain: Plan: Status post lumbar spinal surgery on 06/27/2021 for neurogenic claudication due to lumbar spinal stenosis Second admission in the hospital following surgery for continued pain and weakness Has been very difficult by the to take care of him at home with high risk of falling Will give oral Percocet and IV Dilaudid as needed for pain control We will get PT and OT evaluation Will likely need rehab placement Pain seems to be reasonably controlled with added pain medications Will need to continue physical therapy and will need placement Continues to have back pain Will give local diclofenac sodium Constipation Secondary to use of narcotic Will give MiraLAX and milk of magnesia (2) S/P spinal surgery: Plan: Status post lumbar spinal surgery as above Surgical site seems to be intact without any infection No need to have Ortho evaluation while in the hospital this time (3) Back pain with radiculopathy: Plan: Still has some back pain with radiculopathy as per the patient No bladder and or bowel problem Does not have any radiculopathic symptoms at this time Awaiting placement (4) Hyperlipidemia: Plan: Continue statin (5) Prostate cancer: Plan: Has had therapy before No acute issues DVT prophylaxis Subcu Lovenox CODE STATUS Full Admission and Anticipated Discharge Date Admission Date: July 10, 2021 Subjective 07/09/2021 The patient was seen and examined in medical floor He complains to have pain at the back without radiation Has not been for therapy yet Will need rehab placement 07/10/2021 The patient was seen and examined in medical floor He has been complaining of pain at the back without radiation He will need to be placed 07/11/2021 The patient was seen and examined in medical floor He has been awaiting to be placed Still complains of back pain without radiation Review of Systems Review of Systems: All systems reviewed and are unremarkable except as noted below Musculoskeletal: Back pain chronic without significant radiation. Status post back surgery Physical Exam Physical Exam: Lying in bed with minimal distress Constitutional: well developed, well nourished, + ill appearing and average body habitus Eyes: PERRL, conjunctivae normal, anicteric sclerae ENMT: external ear and nose normal, oropharynx normal Neck: trachea midline, no thyromegaly Respiratory: no respiratory distress Auscultation: lungs clear to auscultation bilaterally Cardiovascular: Rate/Rhythm: regular rate and regular rhythm; not tachycardic Heart Sounds: normal S1 and normal S2; no murmur Extremities: + edema (Trace edema on the right side) Gastrointestinal (Abdomen): Inspection/Auscultation: normal bowel sounds; abdomen not distended Percussion/Palpation: abdomen soft; abdomen nontender Musculoskeletal: Back pain. No radiation and no problem with urine and or bowel habit Neurologic: Alert, awake and oriented x3 Lymphatic: no cervical or axillary lymphadenopathy Results & Data Results & Data ([facility]) Vital Signs (Past 12 Hours) Vital Signs Temp Pulse Resp BP Pulse Ox 07/11/21 14:06 36.7 C 96 H 16 126/69 96 07/11/21 07:35 36.6 C 104 H 17 161/87 H 94 Laboratory Results BMP 07/11/21 07:23 Creatinine 0.81 Medications Administered Current Inpatient Medications Ascorbic Acid (Ascorbic Acid 500 Mg Tab) [facility] Stop: 08/08/21 08:59 Last Admin: 07/11/21 07:54 Dose: 1,000 mg Documented by: Atorvastatin Calcium (Atorvastatin 10 Mg Tab) 5 mg PO Q2D@2100 [facility] Stop: 08/07/21 20:59 Last Admin: 07/10/21 19:45 Dose: Not Given Documented by: Clonazepam (Clonazepam 0.5 Mg Tab) 0.5 mg PO BID PRN PRN Reason: Anxiety Stop: 08/07/21 17:02 Last Admin: 07/10/21 22:08 Dose: 0.5 mg Documented by: Enoxaparin Sodium (Enoxaparin Inj 40 Mg/0.4 Ml Syr) 40 mg SQ HS [facility] Stop: 08/07/21 20:59 Last Admin: 07/10/21 19:54 Dose: 40 mg Documented by: Fish Oil ([place]-3 (Purified Fish Oil) 1 Gm Cap) 1 gm PO QAM [facility] Stop: 08/08/21 08:59 Last Admin: 07/11/21 07:54 Dose: 1 gm Documented by: Hydromorphone HCl (Hydromorphone Inj 0.5 Mg/0.5 Ml Syr) 0.25 mg IV Q3H PRN PRN Reason: Pain Stop: 07/24/21 20:22 Last Admin: 07/11/21 01:03 Dose: 0.25 mg Documented by: Lidocaine (Lidocaine 5% 1 Patch) 2 patch TD HS [facility] Stop: 08/07/21 22:09 Last Admin: 07/10/21 19:48 Dose: 2 patch Documented by: Miscellaneous (Remove Lidoderm Patch) 1 ea N/A DAILY@0900 [facility] Stop: 08/08/21 08:59 Last Admin: 07/11/21 07:54 Dose: 1 ea Documented by: Multivitamins (Multivitamin Tab) 1 tab PO QAM [facility] Stop: 08/08/21 08:59 Last Admin: 07/11/21 07:54 Dose: 1 tab Documented by: Ondansetron HCl (Ondansetron Inj 2 Mg/Ml 2 Ml Vial) 4 mg IV Q6H PRN PRN Reason: Nausea And Vomiting Stop: 08/09/21 20:23 Last Admin: 07/10/21 21:09 Dose: 4 mg Documented by: Oxycodone HCl (Oxycodone Hcl Ir 5 Mg Tab (Immediate Release)) 5 mg PO Q6H PRN PRN Reason: Pain Stop: 07/22/21 17:02 Last Admin: 07/11/21 12:15 Dose: 5 mg Documented by: Pantoprazole Sodium (Pantoprazole 40 Mg Tab) 40 mg PO DAILY [facility] Stop: 08/10/21 08:59 Last Admin: 07/11/21 09:41 Dose: 40 mg Documented by: Polyethylene Glycol (Polyethylene (Miralax) 17 Gm Pack) 17 gm PO DAILY [facility] Stop: 08/09/21 16:59 Last Admin: 07/11/21 07:55 Dose: 17 gm Documented by: Tamsulosin HCl (Tamsulosin Hcl 0.4 Mg Cap) 0.4 mg PO DAILY [facility] Stop: 08/08/21 08:59 Last Admin: 07/11/21 07:54 Dose: 0.4 mg Documented by: Tramadol HCl (Tramadol Hcl 50 Mg Tablet) 50 mg PO Q6H PRN PRN Reason: pain, moderate Stop: 08/07/21 17:02 Last Admin: 07/11/21 03:08 Dose: 50 mg Documented by: Vitamin D (Cholecalciferol 1,000 Units 25 Mcg Tab) 2,000 units PO QAM [facility] Stop: 08/08/21 08:59 Last Admin: 07/11/21 07:54 Dose: 2,000 units Documented by:
[2021-07-11] MEDS: LIDOCAINE 5% 1 PATCH TD SCH (20:29)
[2021-07-11] MEDS: DICLOFENAC SOD 1% GEL 100 GM TUBE EXT SCH (20:29)
[2021-07-11] MEDS: ENOXAPARIN INJ 40 MG/0.4 ML SYR SQ SCH (20:29)
[2021-07-11] MEDS: clonazePAM 0.5 MG TAB PO PRN (20:34)
[2021-07-12] MEDS: MULTIVITAMIN TAB PO SCH (08:12)
[2021-07-12] MEDS: ASCORBIC ACID 500 MG TAB PO SCH (08:12)
[2021-07-12] MEDS: TAMSULOSIN HCL 0.4 MG CAP PO SCH (08:12)
[2021-07-12] MEDS: CHOLECALCIFEROL 1,000 UNITS 25 MCG TAB PO SCH (08:12)
[2021-07-12] MEDS: OMEGA-3 (PURIFIED FISH OIL) 1 GM CAP PO SCH (08:12)
[2021-07-12] MEDS: PANTOprazole 40 MG TAB PO SCH (08:12)
[2021-07-12] MEDS: POLYETHYLENE (MIRALAX) 17 GM PACK PO SCH (08:13)
[2021-07-12] MEDS: DICLOFENAC SOD 1% GEL 100 GM TUBE EXT SCH ×2 (08:13→21:10)
--- NOTE | 2021-07-12 15:33 | Hospitalist Progress Note ---
Date of Service July 12, 2021 Assessment & Plan (1) Postoperative back pain: Plan: Status post lumbar spinal surgery on 06/27/2021 for neurogenic claudication due to lumbar spinal stenosis Second admission in the hospital following surgery for continued pain and weakness Has been very difficult by the to take care of him at home with high risk of falling Will give oral Percocet and IV Dilaudid as needed for pain control We will get PT and OT evaluation Will likely need rehab placement Pain seems to be reasonably controlled with added pain medications Will need to continue physical therapy and will need placement Continues to have back pain Will give local diclofenac sodium PT recommended rehab placement High risk of falling at home likely to be placed to continue physical therapy Constipation Secondary to use of narcotic Will give MiraLAX and milk of magnesia (2) S/P spinal surgery: Plan: Status post lumbar spinal surgery as above Surgical site seems to be intact without any infection No need to have Ortho evaluation while in the hospital this time (3) Back pain with radiculopathy: Plan: Still has some back pain with radiculopathy as per the patient No bladder and or bowel problem Does not have any radiculopathic symptoms at this time Awaiting placement-remains ataxic with movement (4) Hyperlipidemia: Plan: Continue statin (5) Prostate cancer: Plan: Has had therapy before No acute issues DVT prophylaxis Subcu Lovenox CODE STATUS Full Admission and Anticipated Discharge Date Admission Date: July 10, 2021 Subjective 07/09/2021 The patient was seen and examined in medical floor He complains to have pain at the back without radiation Has not been for therapy yet Will need rehab placement 07/10/2021 The patient was seen and examined in medical floor He has been complaining of pain at the back without radiation He will need to be placed 07/11/2021 The patient was seen and examined in medical floor He has been awaiting to be placed Still complains of back pain without radiation 07/12/2021 The patient was seen and examined in medical floor He has been stable but still complains a lot of back pain Has had physical therapy and recommended rehab Review of Systems Review of Systems: All systems reviewed and are unremarkable except as noted below Musculoskeletal: Back pain chronic without significant radiation. Status post back surgery Physical Exam Physical Exam: Lying in bed with minimal distress Constitutional: well developed, well nourished, + ill appearing and average body habitus Eyes: PERRL, conjunctivae normal, anicteric sclerae ENMT: external ear and nose normal, oropharynx normal Neck: trachea midline, no thyromegaly Respiratory: no respiratory distress Auscultation: lungs clear to auscultation bilaterally Cardiovascular: Rate/Rhythm: regular rate and regular rhythm; not tachycardic Heart Sounds: normal S1 and normal S2; no murmur Extremities: + edema (Trace edema on the right side) Gastrointestinal (Abdomen): Inspection/Auscultation: normal bowel sounds; abdomen not distended Percussion/Palpation: abdomen soft; abdomen nontender Musculoskeletal: No acute arthritis in any joint except back pain Neurologic: Alert and awake. Generally weak Lymphatic: no cervical or axillary lymphadenopathy Results & Data Results & Data ([facility]) Vital Signs (Past 12 Hours) Vital Signs Temp Pulse Resp BP Pulse Ox 07/12/21 07:23 36.6 C 83 14 129/92 96 Medications Administered Current Inpatient Medications Ascorbic Acid (Ascorbic Acid 500 Mg Tab) 1,000 mg PO [facility] Stop: 08/08/21 08:59 Last Admin: 07/12/21 08:12 Dose: 1,000 mg Documented by: Atorvastatin Calcium (Atorvastatin 10 Mg Tab) 5 mg PO Q2D@2100 [facility] Stop: 08/07/21 20:59 Last Admin: 07/10/21 19:45 Dose: Not Given Documented by: Clonazepam (Clonazepam 0.5 Mg Tab) 0.5 mg PO BID PRN PRN Reason: Anxiety Stop: 08/07/21 17:02 Last Admin: 07/11/21 20:34 Dose: 0.5 mg Documented by: Diclofenac Sodium (Diclofenac Sod 1% Gel 100 Gm Tube) 2 gm EXT BID [facility] Stop: 08/10/21 20:59 Last Admin: 07/12/21 08:13 Dose: 2 gm Documented by: Enoxaparin Sodium (Enoxaparin Inj 40 Mg/0.4 Ml Syr) 40 mg SQ HS [facility] Stop: 08/07/21 20:59 Last Admin: 07/11/21 20:29 Dose: 40 mg Documented by: Fish Oil ([place]-3 (Purified Fish Oil) 1 Gm Cap) 1 gm PO QAM [facility] Stop: 08/08/21 08:59 Last Admin: 07/12/21 08:12 Dose: 1 gm Documented by: Hydromorphone HCl (Hydromorphone Inj 0.5 Mg/0.5 Ml Syr) 0.25 mg IV Q3H PRN PRN Reason: Pain Stop: 07/24/21 20:22 Last Admin: 07/11/21 23:57 Dose: 0.25 mg Documented by: Lidocaine (Lidocaine 5% 1 Patch) 2 patch TD HS [facility] Stop: 08/07/21 22:09 Last Admin: 07/11/21 20:29 Dose: 2 patch Documented by: Miscellaneous (Remove Lidoderm Patch) 1 ea N/A DAILY@0900 [facility] Stop: 08/08/21 08:59 Last Admin: 07/12/21 08:13 Dose: 1 ea Documented by: Multivitamins (Multivitamin Tab) 1 tab PO QAM [facility] Stop: 08/08/21 08:59 Last Admin: 07/12/21 08:12 Dose: 1 tab Documented by: Ondansetron HCl (Ondansetron Inj 2 Mg/Ml 2 Ml Vial) 4 mg IV Q6H PRN PRN Reason: Nausea And Vomiting Stop: 08/09/21 20:23 Last Admin: 07/10/21 21:09 Dose: 4 mg Documented by: Oxycodone HCl (Oxycodone Hcl Ir 5 Mg Tab (Immediate Release)) 5 mg PO Q6H PRN PRN Reason: Pain Stop: 07/22/21 17:02 Last Admin: 07/11/21 20:34 Dose: 5 mg Documented by: Pantoprazole Sodium (Pantoprazole 40 Mg Tab) 40 mg PO DAILY [facility] Stop: 08/10/21 08:59 Last Admin: 07/12/21 08:12 Dose: 40 mg Documented by: Polyethylene Glycol (Polyethylene (Miralax) 17 Gm Pack) 17 gm PO DAILY [facility] Stop: 08/09/21 16:59 Last Admin: 07/12/21 08:13 Dose: 17 gm Documented by: Tamsulosin HCl (Tamsulosin Hcl 0.4 Mg Cap) 0.4 mg PO DAILY [facility] Stop: 08/08/21 08:59 Last Admin: 07/12/21 08:12 Dose: 0.4 mg Documented by: Tramadol HCl (Tramadol Hcl 50 Mg Tablet) 50 mg PO Q6H PRN PRN Reason: pain, moderate Stop: 08/07/21 17:02 Last Admin: 07/11/21 22:02 Dose: 50 mg Documented by: Vitamin D (Cholecalciferol 1,000 Units 25 Mcg Tab) 2,000 units PO [facility] Stop: 08/08/21 08:59 Last Admin: 07/12/21 08:12 Dose: 2,000 units Documented by:
[2021-07-12] MEDS: traMADol HCL 50 MG TABLET PO PRN (19:20)
[2021-07-12] MEDS: ENOXAPARIN INJ 40 MG/0.4 ML SYR SQ SCH (21:09)
[2021-07-12] MEDS: LIDOCAINE 5% 1 PATCH TD SCH (21:09)
[2021-07-12] MEDS: clonazePAM 0.5 MG TAB PO PRN (21:10)
[2021-07-12] MEDS: ATORVASTATIN 10 MG TAB PO SCH (21:10)
[2021-07-12] MEDS: oxyCODONE HCL IR 5 MG TAB (IMMEDIATE RELEASE) PO PRN (21:10)
[2021-07-12] MEDS: HYDROmorphone INJ 0.5 MG/0.5 ML SYR IV PRN (23:11)
[2021-07-13] MEDS: oxyCODONE HCL IR 5 MG TAB (IMMEDIATE RELEASE) PO PRN ×2 (02:55→17:50)
[2021-07-13] MEDS: HYDROmorphone INJ 0.5 MG/0.5 ML SYR IV PRN ×2 (05:21→23:57)
[2021-07-13] MEDS: MULTIVITAMIN TAB PO SCH (08:06)
[2021-07-13] MEDS: DICLOFENAC SOD 1% GEL 100 GM TUBE EXT SCH ×2 (08:06→20:34)
[2021-07-13] MEDS: PANTOprazole 40 MG TAB PO SCH (08:06)
[2021-07-13] MEDS: POLYETHYLENE (MIRALAX) 17 GM PACK PO SCH (08:06)
[2021-07-13] MEDS: TAMSULOSIN HCL 0.4 MG CAP PO SCH (08:06)
[2021-07-13] MEDS: CHOLECALCIFEROL 1,000 UNITS 25 MCG TAB PO SCH (08:06)
[2021-07-13] MEDS: ASCORBIC ACID 500 MG TAB PO SCH (08:06)
[2021-07-13] MEDS: OMEGA-3 (PURIFIED FISH OIL) 1 GM CAP PO SCH (08:06)
[2021-07-13] MEDS: clonazePAM 0.5 MG TAB PO PRN ×2 (08:10→20:34)
--- NOTE | 2021-07-13 15:40 | Hospitalist Progress Note ---
Date of Service July 13, 2021 Assessment & Plan (1) Postoperative back pain: Plan: Status post lumbar spinal surgery on 06/27/2021 for neurogenic claudication due to lumbar spinal stenosis Second admission in the hospital following surgery for continued pain and weakness Has been very difficult by the to take care of him at home with high risk of falling Will give oral Percocet and IV Dilaudid as needed for pain control We will get PT and OT evaluation Will likely need rehab placement Pain seems to be reasonably controlled with added pain medications Will need to continue physical therapy and will need placement Continues to have back pain Will give local diclofenac sodium PT recommended rehab placement High risk of falling at home likely to be placed to continue physical therapy Approved to go to [facility] Awaiting evaluation by Dr. Mckeon Constipation Secondary to use of narcotic Will give MiraLAX and milk of magnesia (2) S/P spinal surgery: Plan: Status post lumbar spinal surgery as above Surgical site seems to be intact without any infection No need to have Ortho evaluation while in the hospital this time (3) Back pain with radiculopathy: Plan: Still has some back pain with radiculopathy as per the patient No bladder and or bowel problem Does not have any radiculopathic symptoms at this time Awaiting placement-remains ataxic with movement (4) Hyperlipidemia: Plan: Continue statin (5) Prostate cancer: Plan: Has had therapy before No acute issues DVT prophylaxis Subcu Lovenox CODE STATUS Full Admission and Anticipated Discharge Date Admission Date: July 10, 2021 Subjective 07/09/2021 The patient was seen and examined in medical floor He complains to have pain at the back without radiation Has not been for therapy yet Will need rehab placement 07/10/2021 The patient was seen and examined in medical floor He has been complaining of pain at the back without radiation He will need to be placed 07/11/2021 The patient was seen and examined in medical floor He has been awaiting to be placed Still complains of back pain without radiation 07/12/2021 The patient was seen and examined in medical floor He has been stable but still complains a lot of back pain Has had physical therapy and recommended rehab 07/13/2021 The patient was seen and examined in medical floor He has been accepted to [facility] Awaiting evaluation by Dr. Mckeon before discharge Review of Systems Review of Systems: All systems reviewed and are unremarkable except as noted below Musculoskeletal: Back pain chronic without significant radiation. Status post back surgery Physical Exam Physical Exam: Lying in bed with minimal distress Constitutional: well developed, well nourished, + ill appearing and average body habitus Eyes: PERRL, conjunctivae normal, anicteric sclerae ENMT: external ear and nose normal, oropharynx normal Neck: trachea midline, no thyromegaly Respiratory: no respiratory distress Auscultation: lungs clear to auscultation bilaterally Cardiovascular: Rate/Rhythm: regular rate and regular rhythm; not tachycardic Heart Sounds: normal S1 and normal S2; no murmur Extremities: + edema (Trace edema on the right side) Gastrointestinal (Abdomen): Inspection/Auscultation: normal bowel sounds; abdomen not distended Percussion/Palpation: abdomen soft; abdomen nontender Musculoskeletal: Has back pain without radiation Neurologic: Alert, awake and oriented x3 Lymphatic: no cervical or axillary lymphadenopathy Results & Data Results & Data ([facility]) Vital Signs (Past 12 Hours) Vital Signs Temp Pulse Resp BP Pulse Ox 07/13/21 07:41 36.6 C 88 16 135/83 97 Medications Administered Current Inpatient Medications Ascorbic Acid (Ascorbic Acid 500 Mg Tab) 1,000 mg PO QAM [facility] Stop: 08/08/21 08:59 Last Admin: 07/13/21 08:06 Dose: 1,000 mg Documented by: Atorvastatin Calcium (Atorvastatin 10 Mg Tab) 5 mg PO Q2D@2100 [facility] Stop: 08/07/21 20:59 Last Admin: 07/12/21 21:10 Dose: 5 mg Documented by: Clonazepam (Clonazepam 0.5 Mg Tab) 0.5 mg PO BID PRN PRN Reason: Anxiety Stop: 08/07/21 17:02 Last Admin: 07/13/21 08:10 Dose: 0.5 mg Documented by: Diclofenac Sodium (Diclofenac Sod 1% Gel 100 Gm Tube) 2 gm EXT BID [facility] Stop: 08/10/21 20:59 Last Admin: 07/13/21 08:06 Dose: 2 gm Documented by: Enoxaparin Sodium (Enoxaparin Inj 40 Mg/0.4 Ml Syr) 40 mg SQ HS [facility] Stop: 08/07/21 20:59 Last Admin: 07/12/21 21:09 Dose: 40 mg Documented by: Fish Oil (Ariton-3 (Purified Fish Oil) 1 Gm Cap) 1 gm PO QAM [facility] Stop: 08/08/21 08:59 Last Admin: 07/13/21 08:06 Dose: 1 gm Documented by: Hydromorphone HCl (Hydromorphone Inj 0.5 Mg/0.5 Ml Syr) 0.25 mg IV Q3H PRN PRN Reason: Pain Stop: 07/24/21 20:22 Last Admin: 07/13/21 05:21 Dose: 0.25 mg Documented by: Lidocaine (Lidocaine 5% 1 Patch) 2 patch TD HS [facility] Stop: 08/07/21 22:09 Last Admin: 07/12/21 21:09 Dose: 2 patch Documented by: Miscellaneous (Remove Lidoderm Patch) 1 ea N/A DAILY@0900 [facility] Stop: 08/08/21 08:59 Last Admin: 07/13/21 08:07 Dose: Not Given Documented by: Multivitamins ([facility]ivitamin Tab) [facility]: 08/08/21 08:59 Last Admin: 07/13/21 08:06 Dose: 1 tab Documented by: Ondansetron HCl (Ondansetron Inj 2 Mg/Ml 2 Ml Vial) 4 mg IV Q6H PRN PRN Reason: Nausea And Vomiting Stop: 08/09/21 20:23 Last Admin: 07/10/21 21:09 Dose: 4 mg Documented by: Oxycodone HCl (Oxycodone Hcl Ir 5 Mg Tab (Immediate Release)) 5 mg PO Q6H PRN PRN Reason: Pain Stop: 07/22/21 17:02 Last Admin: 07/13/21 02:55 Dose: 5 mg Documented by: Pantoprazole Sodium (Pantoprazole 40 Mg Tab) 40 mg PO DAILY [facility] Stop: 08/10/21 08:59 Last Admin: 07/13/21 08:06 Dose: 40 mg Documented by: Polyethylene Glycol (Polyethylene (Miralax) 17 Gm Pack) 17 gm PO DAILY [facility] Stop: 08/09/21 16:59 Last Admin: 07/13/21 08:06 Dose: 17 gm Documented by: Tamsulosin HCl (Tamsulosin Hcl 0.4 Mg Cap) 0.4 mg PO DAILY [facility] Stop: 08/08/21 08:59 Last Admin: 07/13/21 08:06 Dose: 0.4 mg Documented by: Tramadol HCl (Tramadol Hcl 50 Mg Tablet) 50 mg PO Q6H PRN PRN Reason: pain, moderate Stop: 08/07/21 17:02 Last Admin: 07/12/21 19:20 Dose: 50 mg Documented by: Vitamin D (Cholecalciferol 1,000 Units 25 Mcg Tab) 2,000 units PO [facility] Stop: 08/08/21 08:59 Last Admin: 07/13/21 08:06 Dose: 2,000 units Documented by:
[2021-07-13] MEDS: ENOXAPARIN INJ 40 MG/0.4 ML SYR SQ SCH (20:33)
[2021-07-13] MEDS: LIDOCAINE 5% 1 PATCH TD SCH (20:34)
[2021-07-13] MEDS: traMADol HCL 50 MG TABLET PO PRN (20:35)
[2021-07-14] MEDS: oxyCODONE HCL IR 5 MG TAB (IMMEDIATE RELEASE) PO PRN (03:24)
[2021-07-14 06:53] LABS: Creatinine Clr Calc Pharmacy 87.2 ml/min; Est GFR (African American) 102.1 ml/min; Est GFR (Non-African American) 88.1 ml/min
[2021-07-14] MEDS: clonazePAM 0.5 MG TAB PO PRN (07:53)
[2021-07-14] MEDS: traMADol HCL 50 MG TABLET PO PRN (07:54)
[2021-07-14] MEDS: POLYETHYLENE (MIRALAX) 17 GM PACK PO SCH (08:10)
[2021-07-14] MEDS: PANTOprazole 40 MG TAB PO SCH (08:10)
[2021-07-14] MEDS: ASCORBIC ACID 500 MG TAB PO SCH (08:10)
[2021-07-14] MEDS: MULTIVITAMIN TAB PO SCH (08:10)
[2021-07-14] MEDS: TAMSULOSIN HCL 0.4 MG CAP PO SCH (08:10)
[2021-07-14] MEDS: DICLOFENAC SOD 1% GEL 100 GM TUBE EXT SCH (08:11)
[2021-07-14] MEDS: CHOLECALCIFEROL 1,000 UNITS 25 MCG TAB PO SCH (08:11)
[2021-07-14] MEDS: OMEGA-3 (PURIFIED FISH OIL) 1 GM CAP PO SCH (08:11)
--- NOTE | 2021-07-14 12:40 | Hospitalist Progress Note ---
Date of Service July 14, 2021 Assessment & Plan (1) Postoperative back pain: Plan: Status post lumbar spinal surgery on 06/27/2021 for neurogenic claudication due to lumbar spinal stenosis Second admission in the hospital following surgery for continued pain and weakness Has been very difficult by the to take care of him at home with high risk of falling Will give oral Percocet and IV Dilaudid as needed for pain control We will get PT and OT evaluation Will likely need rehab placement Pain seems to be reasonably controlled with added pain medications Will need to continue physical therapy and will need placement Continues to have back pain Will give local diclofenac sodium PT recommended rehab placement High risk of falling at home likely to be placed to continue physical therapy Clinically much better He will be leaving for rehab this afternoon Was evaluated by Dr. Mckeon Constipation Secondary to use of narcotic Will give MiraLAX and milk of magnesia (2) S/P spinal surgery: Plan: Status post lumbar spinal surgery as above Surgical site seems to be intact without any infection No need to have Ortho evaluation while in the hospital this time Appreciate Dr. Mckeon's input and recommendation (3) Back pain with radiculopathy: Plan: Still has some back pain with radiculopathy as per the patient No bladder and or bowel problem Does not have any radiculopathic symptoms at this time Awaiting placement-remains ataxic with movement Continue physical therapy has not inpatient (4) Hyperlipidemia: Plan: Continue statin (5) Prostate cancer: Plan: Has had therapy before No acute issues DVT prophylaxis Subcu Lovenox CODE STATUS Full Admission and Anticipated Discharge Date Admission Date: July 10, 2021 Subjective 07/09/2021 The patient was seen and examined in medical floor He complains to have pain at the back without radiation Has not been for therapy yet Will need rehab placement 07/10/2021 The patient was seen and examined in medical floor He has been complaining of pain at the back without radiation He will need to be placed 07/11/2021 The patient was seen and examined in medical floor He has been awaiting to be placed Still complains of back pain without radiation 07/12/2021 The patient was seen and examined in medical floor He has been stable but still complains a lot of back pain Has had physical therapy and recommended rehab 07/13/2021 The patient was seen and examined in medical floor He has been accepted to [facility] Awaiting evaluation by Dr. Mckeon before discharge 07/14/2021 The patient was seen and examined in medical floor He has been feeling a lot better Back pain is persisting and he seems happy to get more physical therapy Denies any other symptoms Review of Systems Review of Systems: All systems reviewed and are unremarkable except as noted below Musculoskeletal: Back pain chronic without significant radiation. Status post back surgery Physical Exam Physical Exam: Lying in bed with minimal distress Constitutional: well developed, well nourished, + ill appearing and average body habitus Eyes: PERRL, conjunctivae normal, anicteric sclerae ENMT: external ear and nose normal, oropharynx normal Neck: trachea midline, no thyromegaly Respiratory: no respiratory distress Auscultation: lungs clear to auscultation bilaterally Cardiovascular: Rate/Rhythm: regular rate and regular rhythm; not tachycardic Heart Sounds: normal S1 and normal S2; no murmur Extremities: + edema (Trace edema on the right side) Gastrointestinal (Abdomen): Inspection/Auscultation: normal bowel sounds; abdomen not distended Percussion/Palpation: abdomen soft; abdomen nontender Musculoskeletal: Localized back tenderness at the site of surgery. No radiation Neurologic: Alert, awake and oriented x3 Lymphatic: no cervical or axillary lymphadenopathy Results & Data Results & Data ([facility]) Vital Signs (Past 12 Hours) Vital Signs Temp Pulse Resp BP Pulse Ox 07/14/21 07:20 36.8 C 93 H 16 158/91 H 93 Laboratory Results [facility] 07/14/21 05:24 Creatinine 0.72
--- NOTE | 2021-07-14 13:02 | Orthopedic Consultation ---
Date of Consultation July 14, 2021 Assessment & Plan (1) Postoperative back pain: At this time I believe he is ready for rehab. He will require at least a few weeks of care before he is independent after return home. He will see us in the office the next week to assess his progress. History of Present Illness Reason for Consultation: Status post lumbar decompression fusion Attending Physician: Zen Huitron MD History of Present Illness This is an 81-year-old male well-known to me status post multilevel lumbar decompression fusion. He has been able to tolerate return to home secondary to postoperative needs and assistance with activity. I saw him this morning. He complains of some intermittent back pain but is tolerable. He describes aching in his legs with activity. Is prickly in and around his knees. He has no radicular complaints. He tolerates therapy with assistance. Allergies Allergy/AdvReac Type Severity Reaction Status Date / Time No Known Allergies Allergy Verified 07/02/21 11:01 Home Medications Medication Instructions Recorded Confirmed Type ascorbic acid (vitamin C) 1,000 mg 1 g PO QAM 06/01/21 07/08/21 History tablet (Vitamin C) atorvastatin 10 mg tablet 5 mg PO Q OTHER DAY 06/01/21 07/08/21 History cholecalciferol (vitamin D3) 50 50 mcg PO QAM 06/01/21 07/08/21 History mcg (2,000 unit) tablet (Vitamin D3) multivitamin 1 tab PO QAM 06/01/21 07/08/21 History pantoprazole 40 mg tablet,delayed 40 mg PO DAILY PRN 06/01/21 07/08/21 History release vit C 250 mg-E 90 mg-zinc 40 1 tab PO AMPM 06/01/21 07/08/21 History mg-copper 1 bn-[id number]-fsxssd chew tablet (PreserVision AREDS-2) omega 6-apy-tpu-fish oil 1,000 mg 1 cap PO QAM 07/02/21 07/08/21 History (120 mg-180 mg) capsule (Fish Oil) clonazepam 0.5 mg tablet 0.5 mg PO BID PRN 07/08/21 07/08/21 History tamsulosin 0.4 mg capsule 0.4 mg PO DAILY 07/08/21 07/08/21 History diclofenac sodium 1 % topical gel 2 g EXT BID 10 Days #50 g 07/14/21 Rx (Voltaren Arthritis Pain) tramadol 50 mg tablet 50 mg PO Q6H PRN 5 Days #15 tab 07/14/21 Rx Patient History Medical History Degenerative disc disease GERD (gastroesophageal reflux disease) Well controlled and stable History of Mohs micrographic surgery for skin cancer Hyperlipidemia Kidney stones Passed on own Neurogenic claudication due to lumbar spinal stenosis Prostate cancer 10 yrs ago > with seeds for radiation Surgical History History of cardiac cath Over 15 yrs ago - no stents or bypass History of cataract surgery bilat History of colonoscopy History of esophagogastroduodenoscopy (EGD) History of lumbar surgery History of tonsillectomy S/P spinal surgery Family History Father Prostate cancer Hypertension Mother Breast cancer Social History Smoking Status: Former smoker Second Hand Exposure: No; Do You Dip or Chew Tobacco: No; Tobacco Cessation Education Requested by Patient: No Hx Alcohol Use: Yes Alcohol type: wine Hx Substance Use: No Preferred Language: [place] Communication Ability: Effective Driver/Merchandiser Required: No Beliefs That Will Affect Care: None marital status: Current Living Situation: Spouse Feels Safe at Home: Yes Safety Concerns: Feels Safe At This Time Assistive Devices: Walker Physical Exam Physical Exam: On exam incision is healing nicely. There is no erythema no drainage. Nontender. He is able to stand on his own volition without difficulty. He has good strength testing otherwise. There is some edema to the lower extremities. Results & Data ([facility]) Vital Signs (Past 12 Hours) Vital Signs Temp Pulse Resp BP Pulse Ox 07/14/21 07:20 36.8 C 93 H 16 158/91 H 93
[2021-07-14] MEDS ORDERED: ALUMINUM/MAGNESIUM SUSP 30 ML UDC PO STA (13:17)
--- NOTE | 2021-07-15 07:57 | Discharge Summary ---
Date of Service July 14, 2021 Admission HPI Per Admitting Provider He is an 81-year-old male with significant past medical history of prostate cancer status post brachytherapy, hyperlipidemia, GERD and recent history of lumbar back surgery on of this month due to neurogenic claudication secondary to spinal stenosis apparently was sent home on . He was readmitted on with ongoing back pain and has had physical therapy while in the hospital. He was discharged home on of this month as he did not meet the criteria for rehab as per the physical therapist. His oxycodone was discontinued on discharge but tramadol was continued to control pain. He complains to have increasing pain in the back and it has been difficult for him to get out of bed and ambulate due to increasing pain and weakness. He is back to ER for reevaluation. Complains to have lower back pain with minimal radiation to the left leg and weakness. The pain is worse with ambulation. Denies any urine and bowel problem and denies any other significant symptoms. Admission Exam Per Admitting Provider Physical Exam: Lying in bed with minimal distress Constitutional: well developed, well nourished, + ill appearing and average body habitus Eyes: PERRL, conjunctivae normal, anicteric sclerae ENMT: external ear and nose normal, oropharynx normal Neck: trachea midline, no thyromegaly Respiratory: no respiratory distress Auscultation: lungs clear to auscultation bilaterally Cardiovascular: Rate/Rhythm: regular rate and regular rhythm; not tachycardic Heart Sounds: normal S1 and normal S2; no murmur Extremities: + edema (Trace edema on the right side) Gastrointestinal (Abdomen): Inspection/Auscultation: normal bowel sounds; abdomen not distended Percussion/Palpation: abdomen soft; abdomen nontender Musculoskeletal: No acute arthritis involving any joint. Localized tenderness at the back. Surgical site seems to be intact. No definite radiculopathy Neurologic: Alert awake and oriented x3. Generally weak Lymphatic: no cervical or axillary lymphadenopathy Principal Diagnosis Postoperative back pain, status post lumbar spinal surgery, hyperlipidemia Discharge Exam Lying in bed with minimal distress Constitutional well developed, well nourished, + ill appearing and average body habitus Eyes PERRL, conjunctivae normal, anicteric sclerae ENMT external ear and nose normal, oropharynx normal Neck trachea midline, no thyromegaly Respiratory no respiratory distress Auscultation: lungs clear to auscultation bilaterally Cardiovascular Rate/Rhythm: regular rate and regular rhythm; not tachycardic Heart Sounds: normal S1 and normal S2; no murmur Extremities: + edema (Trace edema on the right side) Gastrointestinal (Abdomen) Inspection/Auscultation: normal bowel sounds; abdomen not distended Percussion/Palpation: abdomen soft; abdomen nontender Lymphatic no cervical or axillary lymphadenopathy Discharge Data Allergies Allergy/AdvReac Type Severity Reaction Status Date / Time No Known Allergies Allergy Verified 07/02/21 11:01 Consultations 07/08/21 14:12 ED Decision to Admit Stat 07/13/21 09:49 Consult Orthopedic Surgery Routine Hospital Course (1) Postoperative back pain: Status post lumbar spinal surgery on 06/27/2021 for neurogenic claudication due to lumbar spinal stenosis Second admission in the hospital following surgery for continued pain and weakness Has been very difficult by the to take care of him at home with high risk of falling Will give oral Percocet and IV Dilaudid as needed for pain control We will get PT and OT evaluation Will likely need rehab placement Pain seems to be reasonably controlled with added pain medications Will need to continue physical therapy and will need placement Continues to have back pain Will give local diclofenac sodium PT recommended rehab placement High risk of falling at home likely to be placed to continue physical therapy Clinically much better He will be leaving for rehab this afternoon Was evaluated by Dr. Mckeon Constipation Secondary to use of narcotic Will give MiraLAX and milk of magnesia (2) S/P spinal surgery: Status post lumbar spinal surgery as above Surgical site seems to be intact without any infection No need to have Ortho evaluation while in the hospital this time Appreciate Dr. Mckeon's input and recommendation (3) Back pain with radiculopathy: Still has some back pain with radiculopathy as per the patient No bladder and or bowel problem Does not have any radiculopathic symptoms at this time Awaiting placement-remains ataxic with movement Continue physical therapy has not inpatient (4) Hyperlipidemia: Continue statin (5) Prostate cancer: Has had therapy before No acute issues DVT prophylaxis Subcu Lovenox CODE STATUS Full Total Time Total Time Spent Total Time Spent (In Minutes): 40 minutes Discharge Plan Discharge Items Patient Disposition: Transfer [facility] Living Fac Reason For Visit: INTRACTABLE BACK PAIN,AMBULATORY DYSFUNCTION Discharge Diagnosis: Postoperative back pain, status post lumbar spinal surgery, hyperlipidemia Condition on Discharge: Fair Activity: As commented below Activity Comment: Continue PT and OT Non-emergency contact: Primary Care Provider Call non-emergency contact if: you have any medication questions and your symptoms worsen Follow-up/Referrals: Keith Cai [Primary Care Provider] - (Please make an appointment with your primary care physician within 7 days following discharge from the facility) Diet: Regular Addtl Attending Provider Instructions: Please take precautions to avoid falls Take your medications as advised Please keep appointment with your healthcare providers Pending Studies at Discharge: No Stand-Alone Forms: My [facility] [employer] Skilled Items Patient informed of condition?: Yes DNR: No Discharge Level of Care: Skilled Communicable Disease: No Discharge Prognosis: Stable Lines: None Urinary Catheter: No Medications and DC Order Prescriptions: New diclofenac sodium [Voltaren Arthritis Pain] 1 % Gel 2 g EXT BID 10 Days Qty: 50 RF: 0 Continued multivitamin Tablet 1 tab PO QAM RF: 0 ascorbic acid (vitamin C) [Vitamin C] 1,000 mg Tablet 1 g PO QAM RF: 0 atorvastatin 10 mg Tablet 5 mg PO Q OTHER DAY RF: 0 pantoprazole 40 mg Tablet,Delayed Release (Dr/Ec) 40 mg PO DAILY PRN (Reason: Acid Reflux) RF: 0 cholecalciferol (vitamin D3) [Vitamin D3] 50 mcg (2,000 unit) Tablet 50 mcg PO QAM RF: 0 PreserVision AREDS-2 250-90-40-1 mg Tablet,Chewable 1 tab PO AMPM RF: 0 tamsulosin 0.4 mg capsule 0.4 mg PO DAILY RF: 0 tramadol 50 mg tablet 50 mg PO Q6H PRN (Reason: pain, moderate) 5 Days Qty: 15 RF: 0 clonazepam 0.5 mg tablet 0.5 mg PO BID PRN (Reason: Anxiety) 5 Days Qty: 10 RF: 0 omega 8-hpt-rwc-fish oil [Fish Oil] 1,000 mg (120 mg-180 mg) Capsule 1 cap PO QAM RF: 0 Discontinued oxycodone 5 mg tablet 5 mg PO Q6H PRN (Reason: Pain) RF: 0 Discharge Orders: Discharge Order (Routine); Ordered 07/14/21 Ordered By: Zen Huitron Admission Data Admit Date/Time: 07/10/21 11:18 Attending Provider: Zen Huitron Admit Provider: Zen Huitron Primary Care Provider: Keith Cai Other Providers: Zen Huitron ; Todd Mckeon Other Interventions: Discharge Summary Assessment (RN) Last Done: 07/14/21 12:55
== END 2021-07-14 14:22 ==
LOC: 3E 11:44 → ED 11:44 → 3E 16:43

== ENCOUNTER 2021-08-10 13:43 | Inpatient (IN) ==
--- NOTE | 2021-08-10 15:16 | Emergency Department Note ---
Impression & Plan Seroma after procedure, S/P spinal surgery, Back pain, Anemia ED Provider Note NAME: JUDAH BRIONES AGE: 81 SEX: M : 1940 ARRIVES VIA: Walk-In INFORMANT: Patient, ED PROVIDER(S): Jemal Maria MD Chief Complaint: Outpatient referral, abnormal MRI HPI: Patient presents due to concern for outpatient referral for likely postoperative seroma and chronic pain. 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 Mckeon to help alleviate his symptoms. States that he has had persistent discomfort since the time of his procedure and he was seen in the [place] office today after having an MRI which showed that he likely had a fluid collection and was referred here for a procedure to remove the fluid. Patient denies any chest pain. The patient does have some chronic back discomfort but is declines any pain medication at this time. Patient denies any fevers or chills. ROS: See HPI for pertinent positives and negatives. A total of 10 systems were reviewed and otherwise negative. Past medical history: See below Surgical history: See below Social history: See below Physical Exam: GENERAL: NAD, wearing glasses, wearing a mask, non-toxic. EYE EXAM: Normal conjunctiva. PERRL, no anisocoria and EOM's grossly intact w/o pain. OROPHARYNX: Moist mucus membranes. Grossly normal dentition. NECK: Supple, no nuchal rigidity, no adenopathy, non-tender. No signs of meningismus. LUNGS: Clear to auscultation. Normal chest wall mechanics. HEART: NSR, no MRG. ABDOMEN: Abdomen soft, non-tender, normo-active bowel sounds, no masses, no rebound or guarding. BACK: Well-healed lumbar incisional site. No surrounding erythema fluctuance or drainage SKIN: No rashes and no bruising. UPPER EXTREMITIES: Upper extremities are grossly normal. LOWER EXTREMITIES: Grossly normal, no edema. NEURO EXAM: A&O x3, cranial nerves II-XII grossly intact, normal speech, moves all 4 extremities on command w/o issue. Differential diagnoses: Musculoskeletal, disc herniation, fracture, metastatic disease, cord compression, discitis, sciatica, cauda equina, infection, aortic disease, renal colic, gastrointestinal, as well as other pathologies. Course: Patient was seen and evaluated the bedside. Full history physical exam was performed. EKG interpreted by me Normal sinus rhythm, rate of 82, normal VT and wide QRS, right bundle branch block pattern. No significant change from comparison EKG July 08, 2021. Imaging Studies: See Below Cardiac monitoring: An order was placed for continuous cardiac monitoring. The monitor shows a rate of 82 with sinus rhythm. MDM: Patient was seen due to concern for abnormal outpatient MRI with likely seroma. Blood work was obtained along with a blood culture and procalcitonin. I did speak with the on-call dairy management specialist Dr. Mckeon who had performed the p atient's procedure. He will admit the patient primarily and is in agreement with current plan of care. Antibiotics deferred at this time. The patient has a normal white count with mild anemia hemoglobin of 13. Platelet count is unremarkable. Kidney function unremarkable. Procalcitonin is not elevated. COVID-negative. Patient was admitted. Past Med/Surg History Medical History Degenerative disc disease GERD (gastroesophageal reflux disease) Well controlled and stable History of Mohs micrographic surgery for skin cancer Hyperlipidemia Kidney stones Passed on own Neurogenic claudication due to lumbar spinal stenosis Prostate cancer 10 yrs ago > with seeds for radiation Surgical History History of cardiac cath Over 15 yrs ago - no stents or bypass History of cataract surgery bilat History of colonoscopy History of esophagogastroduodenoscopy (EGD) History of lumbar surgery History of tonsillectomy S/P spinal surgery Family History Father Prostate cancer Hypertension Mother Breast cancer Social History Smoking Status: Former smoker Second Hand Exposure: No; Hx Alcohol Use: Yes Alcohol type: wine Hx Substance Use: No Preferred Language: Greenlandic Communication Ability: Effective Global Director Air And Climate Change Required: No Beliefs That Will Affect Care: None marital status: Current Living Situation: Spouse Other Information That Helps Us Care for You: No Feels Safe at Home: Yes Safety Concerns: Feels Safe At This Time Assistive Devices: Wheelchair Allergies Allergies Allergy/AdvReac Type Severity Reaction Status Date / Time No Known Allergies Allergy Verified 07/02/21 11:01 Home Meds Home Medications Medication Instructions Recorded Confirmed ascorbic acid (vitamin C) 1,000 mg 1 g PO QAM 06/01/21 08/10/21 tablet (Vitamin C) atorvastatin 10 mg tablet 5 mg PO Q OTHER DAY 06/01/21 08/10/21 cholecalciferol (vitamin D3) 50 50 mcg PO QAM 06/01/21 08/10/21 mcg (2,000 unit) tablet (Vitamin D3) multivitamin 1 tab PO QAM 06/01/21 08/10/21 pantoprazole 40 mg tablet,delayed 40 mg PO DAILY PRN 06/01/21 08/10/21 release vit C 250 mg-E 90 mg-zinc 40 1 tab PO AMPM 06/01/21 08/10/21 mg-copper 1 st-oklixk-ilveuv chew tablet (PreserVision AREDS-2) omega 0-hyq-jxn-fish oil 1,000 mg 1 cap PO QAM 07/02/21 08/10/21 (120 mg-180 mg) capsule (Fish Oil) tamsulosin 0.4 mg capsule 0.4 mg PO DAILY 07/08/21 08/10/21 oxycodone 5 mg tablet 5 mg PO BID 08/10/21 08/10/21 Previous Rx's Medication Instructions Recorded clonazepam 0.5 mg tablet 0.5 mg PO BID PRN 5 Days #10 tab 07/14/21 tramadol 50 mg tablet 50 mg PO Q6H PRN 5 Days #15 tab 07/14/21 Results & Data (ED) Vital Signs Vital Signs - 24 hr 08/10/21 13:54 08/10/21 15:13 Temperature 36.7 C Temperature Source Temporal Artery Scan Pulse Rate 91 H Respiratory Rate 18 Respiratory Effort / Characteristics Non-Labored Spontaneous Respiratory Depth Normal Respiratory Pattern Regular Blood Pressure 112/67 Blood Pressure Mean 82 Blood Pressure Position Sitting Pulse Oximetry 94 97 Oxygen Delivery Method Room Air Room Air Sepsis Recent Fever Within 48 Hours No Sepsis New/Unexplained Change in Mental Status No Sepsis Action Taken by Nursing No Action Required Home Medications Current Medication List: was personally reviewed by me Laboratory Data Attestation: I reviewed the patient's lab results. Result diagrams: 08/10/21 15:18 08/10/21 15:18 Lab Results 08/10/21 08/10/21 08/10/21 Range/Units 15:18 15:18 15:18 WBC 8.81 (4.8-10.8) K/uL RBC 4.40 L (4.7-6.1) M/uL Hgb 13.0 L (14.0-18.0) g/dL Hct 40.6 L (42-52) % MCV 92.3 (80-100) fL MCH 29.5 (25-34) pg MCHC 32.0 (32-36) g/dL RDW Std Deviation 46.1 (36.4-46.3) fL RDW Coeff of Sofia 13.7 (11.5-14.5) % Plt Count 287 (130-400) K/uL MPV 9.3 (7.4-10.4) fL Immature Gran % (Auto) 0.1 % Neut % (Auto) 66.2 % Lymph % (Auto) 19.6 % [place] % (Auto) 11.4 % Eos % (Auto) 2.5 % Baso % (Auto) 0.2 % Neut # (Auto) 5.83 (1.4-6.5) K/uL Lymph # (Auto) 1.73 (1.2-3.4) K/uL [place] # (Auto) 1.00 H (0.11-0.59) K/uL Eos # (Auto) 0.22 (0-0.5) K/uL Baso # (Auto) 0.02 (0-0.2) K/uL Immature Gran # (Auto) 0.01 (0.00-0.02) K/uL Sodium 140 (136-145) mmol/L Potassium 3.8 (3.5-5.1) mmol/L Chloride 106 (98-107) mmol/L Carbon Dioxide 27 (21-32) mmol/L Anion Gap 7 (3-11) BUN 15 (6-23) mg/dl Creatinine 0.84 (0.6-1.4) mg/dl Est Cr Clr Drug Dosing Not Reportable Est GFR ( Amer) 95.8 ml/min Est GFR (Non-Af Amer) 82.7 ml/min BUN/Creatinine Ratio 17.9 (10-20) Glucose 123 H (70-99(Fasting)) mg/dl Calcium 9.4 (8.5-10.1) mg/dl Magnesium 2.3 (1.7-2.4) mg/dl Total Bilirubin 0.3 (0.2-1.0) mg/dl AST 14 (13-39) U/L ALT 12 (7-52) U/L Alkaline Phosphatase 133 H (34-104) U/L Total Protein 6.6 (6.0-8.3) gm/dl Albumin 4.0 (3.4-5.0) gm/dl Globulin 2.6 (2.5-4.0) gm/dl Albumin/Globulin Ratio 1.5 (0.9-2) Procalcitonin (0-0.5) ng/ml SARS-CoV-2, RNA, NAAT (NEGATIVE) 08/10/21 08/10/21 Range/Units 15:18 15:43 WBC (4.8-10.8) K/uL RBC (4.7-6.1) M/uL Hgb (14.0-18.0) g/dL Hct (42-52) % MCV (80-100) fL MCH (25-34) pg MCHC (32-36) g/dL RDW Std Deviation (36.4-46.3) fL RDW Coeff of Sofia (11.5-14.5) % Plt Count (130-400) K/uL MPV (7.4-10.4) fL Immature Gran % (Auto) % Neut % (Auto) % Lymph % (Auto) % [place] % (Auto) % Eos % (Auto) % Baso % (Auto) % Neut # (Auto) (1.4-6.5) K/uL Lymph # (Auto) (1.2-3.4) K/uL [place] # (Auto) (0.11-0.59) K/uL Eos # (Auto) (0-0.5) K/uL Baso # (Auto) (0-0.2) K/uL Immature Gran # (Auto) (0.00-0.02) K/uL Sodium (136-145) mmol/L Potassium (3.5-5.1) mmol/L Chloride (98-107) mmol/L Carbon Dioxide (21-32) mmol/L Anion Gap (3-11) BUN (6-23) mg/dl Creatinine (0.6-1.4) mg/dl Est Cr Clr Drug Dosing Est GFR ( Amer) ml/min Est GFR (Non-Af Amer) ml/min BUN/Creatinine Ratio (10-20) Glucose (70-99(Fasting)) mg/dl Calcium (8.5-10.1) mg/dl Magnesium (1.7-2.4) mg/dl Total Bilirubin (0.2-1.0) mg/dl AST (13-39) U/L ALT (7-52) U/L Alkaline Phosphatase (34-104) U/L Total Protein (6.0-8.3) gm/dl Albumin (3.4-5.0) gm/dl Globulin (2.5-4.0) gm/dl Albumin/Globulin Ratio (0.9-2) Procalcitonin < 0.05 (0-0.5) ng/ml SARS-CoV-2, RNA, NAAT NEGATIVE (NEGATIVE) Administered Medications Sodium Chloride (Nss 1000ml) 1,000 mls @ 75 mls/hr IV .[id number] PHILL Stop: 09/09/21 18:42 Last Admin: 08/10/21 19:35 Dose: 75 mls/hr Documented by: [id number] Discharge Plan Visit Data Chief Complaint: Infection Stated Complaint: REF BY DR MCKEON, INFECTION, SPINAL FLUID ED Provider: Jemal Maria Discharge Problem: Seroma after procedure, S/P spinal surgery, Back pain, Anemia Patient Disposition: Admitted As Inpatient Discharge Instructions Interventions: ED Discharge Assessment Last Done: 08/10/21 18:25
[2021-08-10 15:43] LABS: Basophils # (auto) 0.02 K/uL (0-0.2); Basophils % (auto) 0.2 %; Eosinophils # (auto) 0.22 K/uL (0-0.5); Eosinophils % (auto) 2.5 %; Hematocrit (blood only) 40.6 % (42-52); Immature Granulocytes # (auto) 0.01 K/uL (0.00-0.02); Immature Granulocytes % (auto) 0.1 %; Lymphocytes # (auto) 1.73 K/uL (1.2-3.4); Lymphocytes % (auto) 19.6 %; Mean Corpuscular Hemoglobin 29.5 pg (25-34); Mean Corpuscular Volume 92.3 fL (80-100); Mean Platelet Volume 9.3 fL (7.4-10.4); Monocytes % (auto) 11.4 %; Neutrophils # (auto) 5.83 K/uL (1.4-6.5); Neutrophils % (auto) 66.2 %; Platelet Count 287 K/uL (130-400); RDW Coefficient of Variation 13.7 % (11.5-14.5); RDW Standard Deviation 46.1 fL (36.4-46.3); White Blood Count 8.81 K/uL (4.8-10.8)
[2021-08-10 16:01] LABS: Alanine Aminotransferase 12 U/L (7-52); Albumin Globulin Ratio 1.5 (0.9-2); Alkaline Phosphatase 133 U/L (34-104); Anion Gap 7 (3-11); Aspartate Aminotransferase 14 U/L (13-39); BUN Creatinine Ratio 17.9 (10-20); Bilirubin,Total 0.3 mg/dl (0.2-1.0); Blood Urea Nitrogen 15 mg/dl (6-23); Calcium 9.4 mg/dl (8.5-10.1); Carbon Dioxide 27 mmol/L (21-32); Chloride 106 mmol/L (98-107); Est GFR (African American) 95.8 ml/min; Est GFR (Non-African American) 82.7 ml/min; Globulin 2.6 gm/dl (2.5-4.0); Glucose 123 mg/dl (70-99(Fasting)); Potassium 3.8 mmol/L (3.5-5.1); Sodium 140 mmol/L (136-145); Total Protein 6.6 gm/dl (6.0-8.3)
--- NOTE | 2021-08-10 16:29 | Electrocardiogram Report ---
Test Reason : Blood Pressure : / mmHG Vent. 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
[2021-08-10] MEDS ORDERED: ACETAMINOPHEN 500 MG TAB PO PRN (18:43)
[2021-08-10] MEDS ORDERED: PANTOprazole 40 MG TAB PO PRN (18:43)
[2021-08-10] MEDS ORDERED: traMADol HCL 50 MG TABLET PO PRN (18:43)
[2021-08-10] MEDS ORDERED: clonazePAM 0.5 MG TAB PO PRN (18:43)
[2021-08-10] MEDS ORDERED: ONDANSETRON 4 MG OD TAB PO PRN (18:43)
[2021-08-10] MEDS ORDERED: ONDANSETRON INJ 2 MG/ML 2 ML VIAL IV PRN (18:43)
[2021-08-10] MEDS ORDERED: PROMETHAZINE HCL 12.5 MG in SODIUM CHLORIDE 0.9% 50 ML IV PRN (18:43)
[2021-08-10] MEDS ORDERED: ACETAMINOPHEN 1,000 MG/100 ML VIAL IV PRN (18:43)
[2021-08-10] MEDS ORDERED: HYDROmorphone INJ 1 MG/ML SYRINGE IV PRN (18:43)
[2021-08-10] MEDS ORDERED: METOCLOPRAMIDE HCL INJ 5 MG/ML 2 ML VIAL IV PRN (18:43)
[2021-08-10] MEDS ORDERED: NALOXONE HCL 0.4 MG/1 ML VIAL/CARP IV PRN (18:43)
[2021-08-10] MEDS: SODIUM CHLORIDE 0.9% 1000ML 1,000 ML IV SCH (19:35)
[2021-08-10] MEDS: CEROVITE ADV FORMULA TAB PO SCH (22:04)
[2021-08-10] MEDS: oxyCODONE HCL IR 5 MG TAB (IMMEDIATE RELEASE) PO PRN (22:05)
[2021-08-11] MEDS: HYDROmorphone INJ 0.5 MG/0.5 ML SYR IV PRN ×2 (00:18→08:38)
--- NOTE | 2021-08-11 01:31 | Hospitalist Consultation ---
Date of Consultation August 11, 2021 Assessment & Plan (1) Postoperative back pain: Final Assessment and Recommendations as follows : Persistent postop back pain with radiculopathy symptoms hx LSS sp surgery 06/2021 Fluid collection/seroma on outpatient imaging as per report No sepsis for now hyperlipidemia, on statin Rx hx prostate cancer status post radiation Chronic anemia, improved hemoglobin following postop values from confinement last month. Hyperglycemia rule out DM past tobacco abuse. Management of back issues as per Orthopedics Analgesia Check hemoglobin A1c DVT prophylaxis. SCDs as per admission orders Thank you very much for this consultation. Dr. Agosto will follow patient's progress. Text document was generated using Xendo voice recognition software. It may contain grammatical or spelling errors. Kindly contact undersigned for clarification of any documentation item in question. History of Present Illness Reason for Consultation: Medical management Requesting Physician: Dr. Mckeon Attending Physician: Todd Mckeon DO History of Present Illness PCP : Dr. Keith Cai History obtained from patient and records. Medical history significant for hyperlipidemia, prostate cancer status post radiation, BPH, L SS status post surgery (06/2021), past tobacco abuse. Last confinement July 2021 for postop back pain following spine surgery for L SS last June 2021. Patient discharged to rehab at [facility] in [facility] where he stayed for a few days. Patient subsequently discharged home. Persistent back pain since discharge with radiation to the right lower extremity. Usual RLE weakness/numbness as per patient. No incontinence symptoms no fever, no chills. Patient denies chest pain, SOB. Outpatient provider ordered an MRI which showed a fluid collection. Patient directed to ER by orthopedics provider for admission. Patient currently admitted under Orthopedics spine service. Medical History as above Surgical History : Back surgery, tonsillectomy, urologic procedure, skin cancer surgery Family History : Breast cancer, prostate cancer, hypertension Personal/Social history : Past tobacco abuse, occasional EtOH intake Allergies Allergy/AdvReac Type Severity Reaction Status Date / Time No Known Allergies Allergy Verified 07/02/21 11:01 Home Medications Medication Instructions Recorded Confirmed Type ascorbic acid (vitamin C) 1,000 mg 1 g PO QAM 06/01/21 08/10/21 History tablet (Vitamin C) atorvastatin 10 mg tablet 5 mg PO Q OTHER DAY 06/01/21 08/10/21 History cholecalciferol (vitamin D3) 50 50 mcg PO QAM 06/01/21 08/10/21 History mcg (2,000 unit) tablet (Vitamin D3) multivitamin 1 tab PO QAM 06/01/21 08/10/21 History pantoprazole 40 mg tablet,delayed 40 mg PO DAILY PRN 06/01/21 08/10/21 History release vit C 250 mg-E 90 mg-zinc 40 1 tab PO AMPM 06/01/21 08/10/21 History mg-copper 1 mw-ncfxjs-xupndx chew tablet (PreserVision AREDS-2) omega 5-atk-geg-fish oil 1,000 mg 1 cap PO QAM 07/02/21 08/10/21 History (120 mg-180 mg) capsule (Fish Oil) tamsulosin 0.4 mg capsule 0.4 mg PO DAILY 07/08/21 08/10/21 History clonazepam 0.5 mg tablet 0.5 mg PO BID PRN 5 Days #10 tab 07/14/21 08/10/21 Rx tramadol 50 mg tablet 50 mg PO Q6H PRN 5 Days #15 tab 07/14/21 08/10/21 Rx oxycodone 5 mg tablet 5 mg PO BID 08/10/21 08/10/21 History Patient History Medical History Degenerative disc disease GERD (gastroesophageal reflux disease) Well controlled and stable History of Mohs micrographic surgery for skin cancer Hyperlipidemia Kidney stones Passed on own Neurogenic claudication due to lumbar spinal stenosis Prostate cancer 10 yrs ago > with seeds for radiation Surgical History History of cardiac cath Over 15 yrs ago - no stents or bypass History of cataract surgery bilat History of colonoscopy History of esophagogastroduodenoscopy (EGD) History of lumbar surgery History of tonsillectomy S/P spinal surgery Family History Father Prostate cancer Hypertension Mother Breast cancer Social History Smoking Status: Former smoker Second Hand Exposure: No; Hx Alcohol Use: Yes Alcohol type: wine Hx Substance Use: No Preferred Language: Tam[place] Communication Ability: Effective Nurses' Registry Director Required: No Beliefs That Will Affect Care: None marital status: Current Living Situation: Spouse Other Information That Helps Us Care for You: No Feels Safe at Home: Yes Safety Concerns: Feels Safe At This Time Assistive Devices: Wheelchair Review of Systems Review of Systems: As per HPI, all other systems reviewed and negative Physical Exam Physical Exam: GENERAL: Comfortable, pleasant, slightly hard of hearing, episodic confusion during encounter, no respiratory distress, lying on the right lateral decubitus position SKIN: Pallor, warm HEENT: Pale palpebral conjunctivae, no ptosis, dry buccal mucosa NECK : Supple, no tenderness CHEST : CTA, no tenderness HEART : RRR, no obvious murmurs ABDOMEN: no distention, nontender BACK : Low back tenderness EXTREMITIES : No LE swelling/tenderness, no other conspicuous deformities noted NEUROLOGIC : Episodic confusion during encounter, no facial asymmetry, gait and stance not assessed Results & Data Results & Data ([facility]) Vital Signs (Past 12 Hours) Vital Signs Temp Pulse Pulse Pulse Resp BP BP 08/10/21 22:33 36.6 C 73 16 08/10/21 19:45 37.0 C 96 H 18 160/80 H 08/10/21 18:25 83 14 124/106 H 08/10/21 17:44 83 20 124/106 H 08/10/21 15:13 08/10/21 13:54 36.7 C 91 H 18 112/67 BP Pulse Ox 08/10/21 22:33 144/70 H 94 08/10/21 19:45 92 08/10/21 18:25 93 08/10/21 17:44 97 08/10/21 15:13 97 08/10/21 13:54 94 Laboratory Results Laboratory Results WBC 8.81 K/uL (4.8-10.8) 08/10/21 15:18 RBC 4.40 M/uL (4.7-6.1) L 08/10/21 15:18 Hgb 13.0 g/dL (14.0-18.0) L 08/10/21 15:18 Hct 40.6 % (42-52) L 08/10/21 15:18 MCV 92.3 fL (80-100) 08/10/21 15:18 MCH 29.5 pg (25-34) 08/10/21 15:18 MCHC 32.0 g/dL (32-36) 08/10/21 15:18 RDW Std Deviation 46.1 fL (36.4-46.3) 08/10/21 15:18 RDW Coeff of Sofia 13.7 % (11.5-14.5) 08/10/21 15:18 Plt Count 287 K/uL (130-400) 08/10/21 15:18 MPV 9.3 fL (7.4-10.4) 08/10/21 15:18 Immature Gran % (Auto) 0.1 % 08/10/21 15:18 Neut % (Auto) 66.2 % 08/10/21 15:18 Lymph % (Auto) 19.6 % 08/10/21 15:18 [place] % (Auto) 11.4 % 08/10/21 15:18 Eos % (Auto) 2.5 % 08/10/21 15:18 Baso % (Auto) 0.2 % 08/10/21 15:18 Neut # (Auto) 5.83 K/uL (1.4-6.5) 08/10/21 15:18 Lymph # (Auto) 1.73 K/uL (1.2-3.4) 08/10/21 15:18 [place] # (Auto) 1.00 K/uL (0.11-0.59) H 08/10/21 15:18 Eos # (Auto) 0.22 K/uL (0-0.5) 08/10/21 15:18 Baso # (Auto) 0.02 K/uL (0-0.2) 08/10/21 15:18 Immature Gran # (Auto) 0.01 K/uL (0.00-0.02) 08/10/21 15:18 Sodium 140 mmol/L (136-145) 08/10/21 15:18 Potassium 3.8 mmol/L (3.5-5.1) 08/10/21 15:18 Chloride 106 mmol/L (98-107) 08/10/21 15:18 Carbon Dioxide 27 mmol/L (21-32) 08/10/21 15:18 Anion Gap 7 (3-11) 08/10/21 15:18 BUN 15 mg/dl (6-23) 08/10/21 15:18 Creatinine 0.84 mg/dl (0.6-1.4) 08/10/21 15:18 Est Cr Clr Drug Dosing Not Reportable 08/10/21 15:18 Est GFR ( Amer) 95.8 ml/min 08/10/21 15:18 Est GFR (Non-Af Amer) 82.7 ml/min 08/10/21 15:18 BUN/Creatinine Ratio 17.9 (10-20) 08/10/21 15:18 Glucose 123 mg/dl (70-99(Fasting)) H 08/10/21 15:18 Calcium 9.4 mg/dl (8.5-10.1) 08/10/21 15:18 Magnesium 2.3 mg/dl (1.7-2.4) 08/10/21 15:18 Total Bilirubin 0.3 mg/dl (0.2-1.0) 08/10/21 15:18 AST 14 U/L (13-39) 08/10/21 15:18 ALT 12 U/L (7-52) 08/10/21 15:18 Alkaline Phosphatase 133 U/L (34-104) H 08/10/21 15:18 Total Protein 6.6 gm/dl (6.0-8.3) 08/10/21 15:18 Albumin 4.0 gm/dl (3.4-5.0) 08/10/21 15:18 Globulin 2.6 gm/dl (2.5-4.0) 08/10/21 15:18 Albumin/Globulin Ratio 1.5 (0.9-2) 08/10/21 15:18 Procalcitonin < 0.05 ng/ml (0-0.5) 08/10/21 15:18 SARS-CoV-2, RNA, NAAT NEGATIVE (NEGATIVE) 08/10/21 15:43 Diagnostic Findings EKG as per my interpretation: Rate 80, NSR, normal axis, RBBB, inferior infarct, no ischemia
[2021-08-11] MEDS: SODIUM CHLORIDE 0.9% 1000ML 1,000 ML IV SCH (05:36)
[2021-08-11] MEDS: oxyCODONE HCL IR 5 MG TAB (IMMEDIATE RELEASE) PO PRN (05:37)
--- NOTE | 2021-08-11 07:00 | Anesthesiology Consultation ---
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 History Surgery Operation Date: 08/11/21 13:25 Proposed Procedures p Incision and Drainage Lumbar - Todd Mckeon DO s Placement of Iliac Bolts - Todd Mckeon DO Height/Weight Height: 6 ft Weight: 75.1 kg Allergies Allergy/AdvReac Type Severity Reaction Status Date / Time No Known Allergies Allergy Verified 07/02/21 11:01 Medications Home Medications Medication Instructions Recorded Confirmed Last Taken ascorbic acid (vitamin C) 1,000 mg 1 g PO QAM 06/01/21 08/10/21 08/09/21 tablet (Vitamin C) atorvastatin 10 mg tablet 5 mg PO Q OTHER DAY 06/01/21 08/10/21 08/09/21 cholecalciferol (vitamin D3) 50 50 mcg PO QAM 06/01/21 08/10/21 08/09/21 mcg (2,000 unit) tablet (Vitamin D3) multivitamin 1 tab PO QAM 06/01/21 08/10/21 08/09/21 pantoprazole 40 mg tablet,delayed 40 mg PO DAILY PRN 06/01/21 08/10/21 08/09/21 release vit C 250 mg-E 90 mg-zinc 40 1 tab PO AMPM 06/01/21 08/10/21 08/09/21 mg-copper 1 nf-epdmwq-egyhuf chew tablet (PreserVision AREDS-2) omega 4-smw-rjs-fish oil 1,000 mg 1 cap PO QAM 07/02/21 08/10/21 08/09/21 (120 mg-180 mg) capsule (Fish Oil) tamsulosin 0.4 mg capsule 0.4 mg PO DAILY 07/08/21 08/10/21 08/09/21 clonazepam 0.5 mg tablet 0.5 mg PO BID PRN 5 Days #10 tab 07/14/21 08/10/21 08/09/21 tramadol 50 mg tablet 50 mg PO Q6H PRN 5 Days #15 tab 07/14/21 08/10/21 08/09/21 oxycodone 5 mg tablet 5 mg PO BID 08/10/21 08/10/21 08/09/21 Active Medications Generic Name Dose Route Start Last Admin Trade Name Freq PRN Reason Stop Dose Admin Hydromorphone HCl 0.5 mg 08/10/21 18:43 08/11/21 00:18 Hydromorphone Inj 0.5 Mg/0.5 Ml Syr IV 08/24/21 18:42 0.5 mg Q3H PRN Administration MOD pain (scale 4-6) & Pre PT Sodium Chloride 1,000 mls @ 75 mls/hr 08/10/21 18:43 08/11/21 05:36 Nss 1000ml IV 09/09/21 18:42 75 mls/hr .[id number] PHILL Administration Acetaminophen 1,000 mg in 100 mls @ 400 mls/hr 08/10/21 18:43 08/10/21 20:00 Ofirmev IV 08/13/21 18:42 Infused Q8H PRN Infusion Pain Rating 1-3 & Pre PT Multivitamins/Minerals 1 tab 08/10/21 21:00 08/10/21 22:04 Cerovite Adv Formula Tab PO 09/09/21 20:59 1 tab BID PHILL Administration Oxycodone HCl 5 - 10 mg 08/10/21 18:43 08/11/21 05:37 Oxycodone Hcl Ir 5 Mg Tab (Immediate Release) PO 08/24/21 18:42 10 mg Q4H PRN Administration mod to severe pain Past Medical History Medical History Degenerative disc disease GERD (gastroesophageal reflux disease) Well controlled and stable History of Mohs micrographic surgery for skin cancer Hyperlipidemia Kidney stones Passed on own Neurogenic claudication due to lumbar spinal stenosis Prostate cancer 10 yrs ago > with seeds for radiation Past Family History Family History Father Prostate cancer Hypertension Mother Breast cancer Past Surgical History Surgical History History of cardiac cath Over 15 yrs ago - no stents or bypass History of cataract surgery bilat History of colonoscopy History of esophagogastroduodenoscopy (EGD) History of lumbar surgery History of tonsillectomy S/P spinal surgery Social History Smoking Status: Former smoker tobacco type: smokeless tobacco Hx Alcohol Use: Yes Alcohol type: wine alcohol intake frequency: holidays/special occasions only Hx Substance Use: No substance use type: does not use Physical Exam Vital Signs Last Vital Signs Temp 97.9 F 08/10/21 22:33 Pulse 73 08/10/21 22:33 Resp 16 08/10/21 22:33 BP 144/70 H 08/10/21 22:33 Pulse Ox 94 08/10/21 22:33 Testing Laboratory Results 08/10/21 15:18 08/10/21 15:18 Electrocardiogram Date: 08/10/21 Normal sinus rhythm, rate 82 bpm Right bundle branch block 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 LV has normal systolic function. EF 55-60%. Normal RV size. RV has normal function. Thickened AV/MV Mitral annular calcification Mild TR Diastolic function could not be assessed due to mitral annular calcification
[2021-08-11] MEDS: ASCORBIC ACID 500 MG TAB PO SCH (08:33)
[2021-08-11] MEDS: MULTIVITAMIN TAB PO SCH (08:33)
[2021-08-11] MEDS: CEROVITE ADV FORMULA TAB PO SCH ×2 (08:33→21:02)
[2021-08-11] MEDS: TAMSULOSIN HCL 0.4 MG CAP PO SCH (08:33)
[2021-08-11] MEDS: CHOLECALCIFEROL 1,000 UNITS 25 MCG TAB PO SCH (08:33)
[2021-08-11] MEDS: ATORVASTATIN 10 MG TAB PO SCH (08:34)
[2021-08-11 08:51] LABS: Appearance Urine Clear (Clear); Bilirubin Urine Negative (Negative); Blood Urine Negative (Negative); Color Urine Yellow; Glucose Urine UA Negative (Negative); Ketones Urine Negative (Negative); Leukocyte Esterase Urine Negative (Negative); Nitrite Urine Negative (Negative); Protein Urine Negative (Negative); Specific Gravity Urine 1.009 (1.000-1.030); Urobilinogen Urine Negative (Negative)
--- NOTE | 2021-08-11 10:10 | History & Physical Report ---
Date of Service August 11, 2021 Assessment & Plan (1) Seroma after procedure: Plan: Patient presents with increasing pain in the lower portion of his back extending into both of his legs with weakness. He has not been able ambulate for several days. His symptoms seem to be getting worse. Given the findings on the MRI I would recommend having him undergo an urgent irrigation debridement to clear out the seroma and check the integrity of the screws themselves. If the screws were loose this would require for instrumentation with iliac bolts to anchor the construct. Without exploration and irrigation debridement of this situation he may continue to decline neurologically which may be ireversible. Dr. Mckeon and I have reviewed the films and findings together and he agrees. Admission and Anticipated Discharge Date Admission Date: August 10, 2021 History of Present Illness Primary Care Provider: Keith Cai Patient is an 81-year-old male who undergone a lumbar decompression fusion from L2-S1 on 06/27/2021. He was seen yesterday in our office with complaints of bilateral leg weakness and uncontrolled pain. He has been unable to ambulate even to get to the bathroom. Pain has been getting progressively worse. In the office an MRI was reviewed revealing a large compressive seroma with possible infection. There also appear to be changes in the L5 vertebral body and the S1 vertebral body consistent with loosening of the hardware and fracture. For this reason he was sent to the emergency room and we have admitted him to the hospital. Allergies Allergy/AdvReac Type Severity Reaction Status Date / Time No Known Allergies Allergy Verified 07/02/21 11:01 Home Medications Medication Instructions Recorded Confirmed Type ascorbic acid (vitamin C) 1,000 mg 1 g PO QAM 06/01/21 08/10/21 History tablet (Vitamin C) atorvastatin 10 mg tablet 5 mg PO Q OTHER DAY 06/01/21 08/10/21 History cholecalciferol (vitamin D3) 50 50 mcg PO QAM 06/01/21 08/10/21 History mcg (2,000 unit) tablet (Vitamin D3) multivitamin 1 tab PO QAM 06/01/21 08/10/21 History pantoprazole 40 mg tablet,delayed 40 mg PO DAILY PRN 06/01/21 08/10/21 History release vit C 250 mg-E 90 mg-zinc 40 1 tab PO AMPM 06/01/21 08/10/21 History mg-copper 1 ea-beoiis-amsxli chew tablet (PreserVision AREDS-2) omega 5-cpk-yct-fish oil 1,000 mg 1 cap PO QAM 07/02/21 08/10/21 History (120 mg-180 mg) capsule (Fish Oil) tamsulosin 0.4 mg capsule 0.4 mg PO DAILY 07/08/21 08/10/21 History clonazepam 0.5 mg tablet 0.5 mg PO BID PRN 5 Days #10 tab 07/14/21 08/10/21 Rx tramadol 50 mg tablet 50 mg PO Q6H PRN 5 Days #15 tab 07/14/21 08/10/21 Rx oxycodone 5 mg tablet 5 mg PO BID 08/10/21 08/10/21 History Past Med/Surg History Medical History Degenerative disc disease GERD (gastroesophageal reflux disease) Well controlled and stable History of Mohs micrographic surgery for skin cancer Hyperlipidemia Kidney stones Passed on own Neurogenic claudication due to lumbar spinal stenosis Prostate cancer 10 yrs ago > with seeds for radiation Surgical History History of cardiac cath Over 15 yrs ago - no stents or bypass History of cataract surgery bilat History of colonoscopy History of esophagogastroduodenoscopy (EGD) History of lumbar surgery History of tonsillectomy S/P spinal surgery Family History Father Prostate cancer Hypertension Mother Breast cancer Social History Smoking Status: Former smoker Second Hand Exposure: No; Hx Alcohol Use: Yes Alcohol type: wine Hx Substance Use: No Preferred Language: Latvian Communication Ability: Effective Change Management Coordinator Required: No Beliefs That Will Affect Care: None marital status: Current Living Situation: Spouse How many Children do You have: 0 Other Information That Helps Us Care for You: No Feels Safe at Home: Yes Safety Concerns: Feels Safe At This Time Assistive Devices: Walker and Wheelchair Physical Exam Physical Exam: On exam he is alert and oriented. He appears uncomfortable. His lower extremity motor exam is limited secondary to breakaway. Any extension of the knees causes severe pain down both legs. He has weakness in the anterior tibialis and plantar flexion of the strength of 4 out of 5. The incision is well-healed no drainage is noted. No ecchymosis or erythema is noted. His visual terrell are grossly intact cardiovascular exam reveals no gross abnormalities. His abdomen soft and nontender his calves are supple nontender. His distal pulses are intact. Results & Data Results & Data ([facility]) Vital Signs (Past 12 Hours) Vital Signs Temp Pulse Resp BP Pulse Ox 08/11/21 08:05 36.7 C 77 18 129/68 94 08/10/21 22:33 36.6 C 73 16 144/70 H 94 Diagnostic Findings An MRI of the lumbar spine performed on 08/03/2021 was available for review. This reveals a large fluid collection spanning from L2-L5. There is an area dorsal to the L3 region of consolidation which may represent hematoma versus infection. There are high signals in the L5 and S1 vertebral bodies around the pedicle screws which likely represents fracture and loosening of the hardware. The seroma itself is compressing thecal sac.
[2021-08-11] MEDS ORDERED: ePHEDrine sulfate 50 MG/ML AMP IV PRN (12:07)
[2021-08-11] MEDS ORDERED: ATROPINE SULFATE 0.1 MG/ML 10ML SYR IV PRN (12:07)
[2021-08-11] MEDS ORDERED: ONDANSETRON INJ 2 MG/ML 2 ML VIAL IV PRN ×2 (12:07→17:12)
[2021-08-11] MEDS ORDERED: PROPOFOL IV EMULSION 10 MG/ML 20 ML VIAL IV ONE (12:39)
[2021-08-11] MEDS ORDERED: DEXAMETHASONE SOD INJ 4 MG/ML VIAL ONE (12:39)
[2021-08-11] MEDS ORDERED: ROCURONIUM BROMIDE 10 MG/ML 5 ML VIAL IV ONE (12:39)
[2021-08-11] MEDS ORDERED: LIDOCAINE 2% 2 ML VIAL/AMP(20MG/ML) INFIL ONE (12:39)
[2021-08-11] MEDS ORDERED: ONDANSETRON INJ 2 MG/ML 2 ML VIAL ONE (12:39)
[2021-08-11] MEDS ORDERED: fentaNYL citrate 100 MCG/2 ML VIAL ONE ×2 (12:40→15:30)
[2021-08-11 12:48] LABS: Estimated Average Glucose 108 mg/dl; Hemoglobin A1C 5.4 % (4.5-5.6)
--- NOTE | 2021-08-11 13:17 | History & Physical Bridge Note ---
Date of Service August 11, 2021 History & Physical Bridge Note I have examined the patient, reviewed the History & Physical and in the interval since the performance of the History & Physical I have noted the following changes of clinical significance: no changes noted Irrigation debridement lumbar spine with possible iliac bolts
[2021-08-11] MEDS ORDERED: ceFAZolin 330 MG/ML 1 GM VIAL ONE (13:51)
[2021-08-11] MEDS ORDERED: BUPIVACAINE/EPINEPHRINE 0.25% 1:200,000 30 ML VIAL ONE (13:51)
[2021-08-11] MEDS ORDERED: PHENYLEPHRINE HCL 10 MG/ML VIAL ONE (14:38)
[2021-08-11] MEDS ORDERED: FLOSEAL HEMOSTATIC MATRIX 10ML TOP ONE ×2 (14:47→15:06)
[2021-08-11] MEDS ORDERED: GENTAMICIN SULFATE 40 MG/ML 2 ML VIAL INSTIL ONE (15:23)
[2021-08-11] MEDS ORDERED: VANCOMYCIN HCL TOP STA (15:29)
[2021-08-11] MEDS ORDERED: SODIUM CHLORIDE 0.9% TOP STA (15:29)
[2021-08-11] MEDS ORDERED: GLYCOPYRROLATE 0.2 MG/ML VIAL ONE (15:35)
[2021-08-11] MEDS ORDERED: NEOSTIGMINE METHYLSULFATE 1 MG/ML 10ML VIAL ONE (15:35)
--- NOTE | 2021-08-11 15:45 | Operative Report ---
Post Operative Report Pre & Post Diagnosis Operation Date: 08/11/21 13:25 Pre-Op Diagnosis: Postoperative lumbar seroma. Sacral fracture with loosening of instrumentation. Post-Op Diagnosis: Same I identified the patient and participated in the time-out.: Yes Procedure Operation Date: 08/11/21 13:25 Actual Procedures #1 evacuation of epidural lumbar seroma. #2 removal of instrumentation. #3 placement of bilateral iliac bolts. #4 bilateral open sacroiliac joint fusions. Surgeon Todd Mckeon, DO Maintenance Groundman Bear Rivas Estimated Blood Loss 75 Findings Consistent with Post-Op Diagnosis Specimens Lumbar epidural space cultures Indications This is an 81-year-old male known to me status post multilevel lumbar decomp ression fusion who presents with worsening back pain. Imaging was obtained demonstrating a significant postoperative fluid collection in the perioperative lumbar epidural bed as well as evidence of a sacral fracture. In light of his presentation severe pain evidence of hardware loosening and possible infection in the recommended emergent surgery. Description of Procedure Patient was met with identified informed consent obtained. Patient was then taken to the operative suite underwent ablation placed in a prone position injectable Vicki frame. All bony prominences well-padded eyes inspected to ensure no external pressure placed upon the. This point the lumbar spine was prepped and draped in a sterile fashion. Sharp dissection with the assistance of Bovie cartilage from down to expose the epidural space. Significant seroma was noted under pressure. Cultures were obtained. Did not appreciate any evidence of purulence. The tissues look very healthy. I then proceeded to remove the end caps and rods from L2-S1. The screws were tested for fixation. Noted loosening of the bilateral L5 is more significant bilateral loosening of the S1 screws. These screws were removed. I placed larger screws in the bilateral L5 space at 4575 was. The S1 screws were cemented in place. I did inject Kyphon cement into the S1 pedicle screw holes. I then placed two 8 x 540 mm screws within the the S1 pedicles. After this complete I placed 2 iliac bolts bilaterally with assistance of fluoroscopy. The posterior aspect of the bilateral SI joints were then exposed and burred to subcortical bleeding bone. Then placed infuse collagen sponge and master graft within the bilateral SI joints. Proper size rods were then contoured and locked into position bilaterally. 215 round DONTE drains were then inserted. I did place 10 cc of stimulant beads impregnated with vancomycin gentamicin throughout the wound. Incision was then closed with 1 Vicryl the fascia 2-0 Vicryl subcutaneously and 4 Monocryl for final skin closure. Steri-Strip Steri-Strips placed. Patient waken taken back in stable condition. Please note Bear Rivas was present at the entire surgery and while the patient positioning complex portions of the surgery and fascial closure. I attest to the content of the Intraoperative Record and any orders documented therein. Any exceptions are noted below.
--- NOTE | 2021-08-11 15:48 | Fluoroscopy Report ---
FL pelvis 1-2V CLINICAL HISTORY: PLACEMENT ILIAC BOLTS COMPARISON STUDY: Lumbar spine 06/27/2021.. FLUOROSCOPY TIME: 15 second. FINDINGS: 3 fluoroscopic spot images of the lumbar sacral spine were performed. Interval placement of bilateral sacroiliac bolts. The hardware appears intact. Extensive posterior fusion hardware again n oted within the lumbar spine. IMPRESSION: Interval placement of bilateral sacroiliac bolts. The hardware appears intact. ACT 112: Negative or not required by law. Electronically signed by: Matt Solano M.D. 08/11/2021 3:47 PM
[2021-08-11] MEDS ORDERED: VANCOMYCIN HCL 1000MG/20ML VIAL TOP ONE (16:00)
[2021-08-11] MEDS: fentaNYL citrate 100 MCG/2 ML VIAL IV PRN ×2 (16:28→16:33)
--- NOTE | 2021-08-11 16:51 | Anesthesiology Progress Note ---
Date of Service August 11, 2021 Anesthesia Post Procedure Vital Signs Vital Signs: Temp Pulse Pulse Pulse Pulse Resp BP 08/11/21 16:30 77 16 08/11/21 16:20 77 16 08/11/21 16:11 36.0 C L 74 16 08/11/21 12:01 36.9 C 82 20 08/11/21 08:05 36.7 C 77 18 08/10/21 22:33 36.6 C 73 16 08/10/21 19:45 37.0 C 96 H 18 08/10/21 18:25 83 14 124/106 H 08/10/21 17:44 83 20 BP BP Pulse Ox 08/11/21 16:30 134/62 99 08/11/21 16:20 121/69 99 08/11/21 16:11 94/61 L 99 08/11/21 12:01 163/82 H 97 08/11/21 08:05 129/68 94 08/10/21 22:33 144/70 H 94 08/10/21 19:45 160/80 H 92 08/10/21 18:25 93 08/10/21 17:44 124/106 H 97 Pain Intensity Bilateral Leg: Pain Intensity: 8 Back: Pain Intensity: 5 Transfer of Care Handoff Completed per policy Notes Mental Status: alert / awake / arousable and participated in evaluation Patient Amnestic to Procedure: Yes Nausea / Vomiting: adequately controlled Pain: adequately controlled Airway Patency, RR, SpO2: stable & adequate BP & HR: stable & adequate Hydration State: stable & adequate Anesthetic Complications: no major complications apparent and Pt Satisfied with anesthetic care
[2021-08-11] MEDS ORDERED: DO NOT ADMINISTER PNEUMOCOCCAL VACCINE PRN (17:12)
[2021-08-11] MEDS ORDERED: NALOXONE HCL 0.4 MG/1 ML VIAL/CARP IV PRN (17:12)
[2021-08-11] MEDS ORDERED: SOD PHOSPHATE/SOD BIPHOSPHATE ENEMA 132 ML BTL PR PRN (17:12)
[2021-08-11] MEDS ORDERED: HYDROmorphone INJ 1 MG/ML SYRINGE IV PRN (17:12)
[2021-08-11] MEDS ORDERED: diphenhydrAMINE Capsule 25 MG CAP PO PRN (17:12)
[2021-08-11] MEDS ORDERED: SODIUM CHLORIDE 0.9% 1000ML 1,000 ML IV SCH (17:12)
[2021-08-11] MEDS ORDERED: LORazepam 2 MG/1 ML VIAL IV PRN (17:12)
[2021-08-11] MEDS ORDERED: FAMOTIDINE 20 MG TAB PO PRN (17:12)
[2021-08-11] MEDS ORDERED: bisacodyL 10 MG SUPP PR PRN (17:12)
[2021-08-11] MEDS ORDERED: MAGNESIUM HYDROXIDE SUSP 30 ML UDC PO PRN (17:12)
[2021-08-11] MEDS ORDERED: ACETAMINOPHEN 1,000 MG/100 ML VIAL IV PRN (17:12)
[2021-08-11] MEDS ORDERED: METOCLOPRAMIDE HCL INJ 5 MG/ML 2 ML VIAL IV PRN (17:12)
[2021-08-11] MEDS ORDERED: hydrOXYzine HCl 25 MG TAB PO PRN (17:12)
[2021-08-11] MEDS ORDERED: LORazepam 0.5 MG TAB PO PRN (17:12)
[2021-08-11] MEDS ORDERED: DO NOT ADMINISTER FLU VACCINE PRN (17:12)
[2021-08-11] MEDS ORDERED: ONDANSETRON 4 MG OD TAB PO PRN (17:12)
[2021-08-11] MEDS ORDERED: PROMETHAZINE HCL 12.5 MG in SODIUM CHLORIDE 0.9% 50 ML IV PRN (17:12)
[2021-08-11] MEDS ORDERED: ALUMINUM/MAGNESIUM SUSP 30 ML UDC PO PRN (17:12)
[2021-08-11] MEDS ORDERED: HYDROmorphone INJ 0.5 MG/0.5 ML SYR IV PRN (17:12)
[2021-08-11] MEDS: ceFAZolin 2000MG 2,000 MG/15 ML SYR IV SCH (21:01)
[2021-08-11] MEDS: DOCUSATE SODIUM/SENNA 50/8.6MG TAB PO SCH (21:01)
--- NOTE | 2021-08-12 | Communication Note ---
Date of Service: August 11, 2021 Pt was seen and examined for postop procedure. He was in the postop waiting area. He is very sleepy but able to answer questions. Continue to have pain in his back. Outpatient MRI was reviewed revealing a large compressive seroma. S/P 1 evacuation of epidural lumbar seroma. #2 removal of instrumentation. #3 placement of bilateral iliac bolts. #4 bilateral open sacroiliac joint fusions performed by Dr. Mckeon. Fluid was sent for culture. Continue pain control. Will follow blood culture. Continue monitor closely. MD Triny
[2021-08-12] MEDS: POLYETHYLENE (MIRALAX) 17 GM PACK PO SCH ×4 (05:13→23:39)
[2021-08-12] MEDS: ceFAZolin 2000MG 2,000 MG/15 ML SYR IV SCH (05:13)
[2021-08-12 07:46] LABS: Basophils # (auto) 0.01 K/uL (0-0.2); Basophils % (auto) 0.1 %; Eosinophils # (auto) 0.01 K/uL (0-0.5); Eosinophils % (auto) 0.1 %; Immature Granulocytes # (auto) 0.04 K/uL (0.00-0.02); Immature Granulocytes % (auto) 0.3 %; Lymphocytes # (auto) 1.25 K/uL (1.2-3.4); Mean Corpuscular Hemoglobin 30.4 pg (25-34); Mean Corpuscular Hgb Conc 33.3 g/dL (32-36); Mean Corpuscular Volume 91.2 fL (80-100); Mean Platelet Volume 9.1 fL (7.4-10.4); Monocytes # (auto) 1.37 K/uL (0.11-0.59); Monocytes % (auto) 9.9 %; Neutrophils % (auto) 80.6 %; Platelet Count 250 K/uL (130-400); RDW Coefficient of Variation 13.5 % (11.5-14.5); RDW Standard Deviation 44.6 fL (36.4-46.3); Red Blood Count 3.62 M/uL (4.7-6.1); White Blood Count 13.88 K/uL (4.8-10.8)
[2021-08-12] MEDS: CHOLECALCIFEROL 1,000 UNITS 25 MCG TAB PO SCH (08:16)
[2021-08-12] MEDS: TAMSULOSIN HCL 0.4 MG CAP PO SCH (08:16)
[2021-08-12] MEDS: MULTIVITAMIN TAB PO SCH (08:16)
[2021-08-12] MEDS: CEROVITE ADV FORMULA TAB PO SCH ×2 (08:16→20:46)
[2021-08-12] MEDS: ASCORBIC ACID 500 MG TAB PO SCH (08:16)
[2021-08-12] MEDS: dexAMETHasone 6 MG in SYRINGE 0 ML IV SCH (08:17)
[2021-08-12 08:19] LABS: Potassium 4.3 mmol/L (3.5-5.1)
[2021-08-12 08:24] LABS: BUN Creatinine Ratio 17.4 (10-20); Creatinine Clr Calc Pharmacy 72.8 ml/min; Est GFR (African American) 94.9 ml/min; Est GFR (Non-African American) 81.9 ml/min
[2021-08-12] MEDS: oxyCODONE HCL IR 5 MG TAB (IMMEDIATE RELEASE) PO PRN ×2 (08:24→18:20)
--- NOTE | 2021-08-12 11:18 | Orthopedic Progress Note ---
Date of Service August 12, 2021 Assessment & Plan (1) Seroma after procedure: Plan: This time would like to begin transfers from bed to chair. We will begin ambulation as tolerated. We will see how he progresses throughout the next several days but ultimately he would be a candidate for rehab. Cultures this time are negative. Admission and Anticipated Discharge Date Admission Date: August 10, 2021 Subjective Patient's back pain is improved. Leg pain improved. Physical Exam Physical Exam: On exam he sitting up in bed. Has improved strength of plantarflexion dorsiflexion. Sensory is intact to the thighs but still diminished in the feet. Results & Data ([facility]) Vital Signs (Past 12 Hours) Vital Signs Temp Pulse Resp BP Pulse Ox 08/12/21 07:39 37.1 C 87 20 124/73 92 08/12/21 02:57 36.8 C 95 H 18 112/71 94
[2021-08-12] MEDS: DOCUSATE SODIUM/SENNA 50/8.6MG TAB PO SCH (20:46)
--- NOTE | 2021-08-12 23:46 | Hospitalist Progress Note ---
Date of Service August 12, 2021 Assessment & Plan (1) Postoperative back pain: Plan: Status post lumbar spinal surgery on 06/27/2021 for neurogenic claudication due to lumbar spinal stenosis Outpatient MRI showed large compressive seroma S/P day #1 evacuation of epidural lumbar seroma. #2 removal of instrumentation. #3 placement of bilateral iliac bolts. #4 bilateral open sacroiliac joint fusions performed by Dr. Mckeon No postop complication Seroma from the procedure was sent for gram stain and culture pending Continue monitor pain control Elevated WBC Hyperglycemia Hba1c 5.4 possible related to steroid Monitor BS GERD (gastroesophageal reflux disease): Continues Protonix Hyperlipidemia: Hold atorvastatin for now- takes every other day. DVT prophylaxis as per ortho Admission and Anticipated Discharge Date Admission Date: August 10, 2021 Subjective Pt was seen and examined for postop follow up/ back pain Sitting in chair with getting ready to shave his chung Pt said that pain in control Denies any chest pain, palpitation, dizziness and SOB Review of Systems Review of Systems: All systems reviewed & are unremarkable except as noted in Subjective Physical Exam Physical Exam: General- No acute distress Head- atraumatic Eyes- PERRL, EOMI, ENT- oropharynx clear Neck- supple, no JVD Lungs- clear to auscultation Heart- regular rhythm; no murmur Abdomen- normal bowel sounds, soft, nontender Extremities- no calf tenderness Neuro- alert, oriented x 3; PERRL, EOMI; no facial palsy; no dysarthria Skin- warm & dry Results & Data Results & Data ([facility]) Vital Signs (Past 12 Hours) Vital Signs Temp Pulse Resp BP Pulse Ox 08/12/21 21:00 36.7 C 78 18 113/70 96 08/12/21 15:00 36.6 C 90 18 106/57 L 96
[2021-08-13] MEDS: POLYETHYLENE (MIRALAX) 17 GM PACK PO SCH ×4 (05:51→23:14)
[2021-08-13 07:20] LABS: Hematocrit (blood only) 30.7 % (42-52); Hemoglobin 10.1 g/dL (14.0-18.0); Mean Corpuscular Hemoglobin 29.5 pg (25-34); Mean Corpuscular Hgb Conc 32.9 g/dL (32-36); Mean Corpuscular Volume 89.8 fL (80-100); Mean Platelet Volume 9.4 fL (7.4-10.4); Platelet Count 212 K/uL (130-400); RDW Coefficient of Variation 13.6 % (11.5-14.5); RDW Standard Deviation 44.7 fL (36.4-46.3); Red Blood Count 3.42 M/uL (4.7-6.1); White Blood Count 11.44 K/uL (4.8-10.8)
[2021-08-13] MEDS: ASCORBIC ACID 500 MG TAB PO SCH (08:35)
[2021-08-13] MEDS: ATORVASTATIN 10 MG TAB PO SCH (08:35)
[2021-08-13] MEDS: CHOLECALCIFEROL 1,000 UNITS 25 MCG TAB PO SCH (08:36)
[2021-08-13] MEDS: CEROVITE ADV FORMULA TAB PO SCH ×2 (08:36→20:38)
[2021-08-13] MEDS: TAMSULOSIN HCL 0.4 MG CAP PO SCH (08:36)
[2021-08-13] MEDS: dexAMETHasone 6 MG in SYRINGE 0 ML IV SCH (08:36)
[2021-08-13] MEDS: MULTIVITAMIN TAB PO SCH (08:36)
[2021-08-13] MEDS: ACETAMINOPHEN 500 MG TAB PO PRN (08:36)
--- NOTE | 2021-08-13 10:11 | Orthopedic Progress Note ---
Date of Service August 13, 2021 Assessment & Plan (1) Seroma after procedure: Plan: At this time we will continue physical therapy monitor his DONTE output anticipate discharge to rehab next week. Admission and Anticipated Discharge Date Admission Date: August 10, 2021 Subjective Back pain controlled leg pain markedly improved Physical Exam Physical Exam: Patient is in the chair at the bedside. He sitting upright. Is good strength testing. Appears comfortable. Results & Data ([facility]) Vital Signs (Past 12 Hours) Vital Signs Temp Pulse Resp BP Pulse Ox 08/13/21 07:02 36.6 C 93 H 18 120/62 95
[2021-08-13] MEDS: DOCUSATE SODIUM/SENNA 50/8.6MG TAB PO SCH (20:39)
--- NOTE | 2021-08-13 23:13 | Hospitalist Progress Note ---
Date of Service August 13, 2021 Assessment & Plan (1) Postoperative back pain: Plan: Status post lumbar spinal surgery on 06/27/2021 for neurogenic claudication due to lumbar spinal stenosis Outpatient MRI showed large compressive seroma S/P day #2 evacuation of epidural lumbar seroma. #2 removal of instrumentation. #3 placement of bilateral iliac bolts. #4 bilateral open sacroiliac joint fusions performed by Dr. Mckeon No postop complication Hgb 10.1 today Seroma from the procedure showed no growth Continue monitor pain control Continue PT/OT Hyperglycemia Hba1c 5.4 possible related to steroid Monitor BS GERD (gastroesophageal reflux disease): Continues Protonix Hyperlipidemia: Hold atorvastatin for now- takes every other day. DVT prophylaxis as per ortho Disposition Plan to go to rehab Admission and Anticipated Discharge Date Admission Date: August 10, 2021 Subjective Pt was seen and examined for postop follow up/ back pain Sitting in chair with no acute distress Pt said that he feels much better He said that he does not have any pain currently He said that he had therapy walking him to the hallway with no discomfort Denies any chest pain, palpitation, dizziness and SOB Review of Systems Review of Systems: All systems reviewed & are unremarkable except as noted in Subjective Physical Exam Physical Exam: General- No acute distress Head- atraumatic Eyes- PERRL, EOMI, ENT- oropharynx clear Neck- supple, no JVD Lungs- clear to auscultation Heart- regular rhythm; no murmur Abdomen- normal bowel sounds, soft, nontender Extremities- no calf tenderness Neuro- alert, oriented x 3; PERRL, EOMI; no facial palsy; no dysarthria Skin- warm & dry Results & Data Results & Data ([facility]) Vital Signs (Past 12 Hours) Vital Signs Temp Pulse Resp BP Pulse Ox 08/13/21 22:33 36.8 C 83 20 126/72 93 08/13/21 15:32 36.5 C 79 18 105/66 97
[2021-08-14] MEDS: POLYETHYLENE (MIRALAX) 17 GM PACK PO SCH ×4 (05:26→23:21)
[2021-08-14] MEDS: TAMSULOSIN HCL 0.4 MG CAP PO SCH (07:20)
[2021-08-14] MEDS: CHOLECALCIFEROL 1,000 UNITS 25 MCG TAB PO SCH (07:20)
[2021-08-14] MEDS: ASCORBIC ACID 500 MG TAB PO SCH (07:21)
[2021-08-14] MEDS: MULTIVITAMIN TAB PO SCH (07:21)
[2021-08-14] MEDS: CEROVITE ADV FORMULA TAB PO SCH ×2 (07:21→20:24)
[2021-08-14] MEDS: dexAMETHasone 6 MG in SYRINGE 0 ML IV SCH (07:40)
--- NOTE | 2021-08-14 12:46 | Orthopedic Progress Note ---
Date of Service August 14, 2021 Assessment & Plan (1) Seroma after procedure: Plan: At this time we will continue physical therapy monitor his DONTE output [facility] in the next few days. Admission and Anticipated Discharge Date Admission Date: August 10, 2021 Subjective Patient's back pain is markedly improved. He is not noting marked improvement of his leg symptoms. Physical Exam Physical Exam: Patient is in the chair at the bedside. Is good strength testing. Appears comfortable. Ronnie are functioning. Results & Data ([facility]) Vital Signs (Past 12 Hours) Vital Signs Temp Pulse Resp BP Pulse Ox 08/14/21 07:24 36.7 C 77 16 122/61 97
--- NOTE | 2021-08-14 14:27 | XRay Report ---
XR lumbar spine 2-3V CLINICAL HISTORY: post op standing films. COMPARISON STUDY: No previous studies for comparison. TECHNIQUE: 5 standing Views of the lumbar spine FINDINGS: Bones: The patient is status post interpedicular screw and matt fixation from L2 through S1. Rods and screws appear intact. There is no evidence for fracture or malalignment. The heights of the vertebral bodies are maintained. There are no lytic or blastic lesions present. Disc spaces: Disc spacers are seen at L3-4, L4-5 and L5-S1. Facet joints: The facet joints are intact bilaterally. Soft tissues: The paraspinal soft tissues are within normal limits. IMPRESSION: 1. No acute abnormality. 2. Status post internal fixation. ACT 112: Negative or not required by law. Electronically signed by: Jw Cummings M.D. 08/14/2021 2:26 PM
[2021-08-14] MEDS: DOCUSATE SODIUM/SENNA 50/8.6MG TAB PO SCH (20:24)
--- NOTE | 2021-08-14 22:48 | Hospitalist Progress Note ---
Date of Service August 14, 2021 Assessment & Plan (1) Postoperative back pain: Plan: Status post lumbar spinal surgery on 06/27/2021 for neurogenic claudication due to lumbar spinal stenosis Outpatient MRI showed large compressive seroma S/P day #3 evacuation of epidural lumbar seroma. #2 removal of instrumentation. #3 placement of bilateral iliac bolts. #4 bilateral open sacroiliac joint fusions performed by Dr. Mckeon No postop complication Hgb 10.1 Seroma from the procedure showed no growth Continue monitor pain control Continue PT/OT Waiting for placement Hyperglycemia Hba1c 5.4 possible related to steroid Monitor BS GERD (gastroesophageal reflux disease): Continues Protonix Hyperlipidemia: Hold atorvastatin for now- takes every other day. DVT prophylaxis as per ortho Disposition Waiting for placement Admission and Anticipated Discharge Date Admission Date: August 10, 2021 Subjective Pt was seen and examined for postop follow up/ back pain Sitting in chair with no acute distress He said that he does not have any pain He said that he had therapy walking him to the hallway with no discomfort Denies any chest pain, palpitation, dizziness and SOB Review of Systems Review of Systems: All systems reviewed & are unremarkable except as noted in Subjective Physical Exam Physical Exam: General- No acute distress Head- atraumatic Eyes- PERRL, EOMI, ENT- oropharynx clear Neck- supple, no JVD Lungs- clear to auscultation Heart- regular rhythm; no murmur Abdomen- normal bowel sounds, soft, nontender Extremities- no calf tenderness Neuro- alert, oriented x 3; PERRL, EOMI; no facial palsy; no dysarthria Skin- warm & dry Results & Data Results & Data ([facility]) Vital Signs (Past 12 Hours) Vital Signs Temp Pulse Resp BP Pulse Ox 08/14/21 22:07 37.1 C 74 20 122/73 96 08/14/21 14:38 36.6 C 96 H 16 105/69 96
[2021-08-15] MEDS: POLYETHYLENE (MIRALAX) 17 GM PACK PO SCH ×4 (05:32→23:14)
[2021-08-15] MEDS: traMADol HCL 50 MG TABLET PO PRN (05:32)
[2021-08-15] MEDS: TAMSULOSIN HCL 0.4 MG CAP PO SCH (08:51)
[2021-08-15] MEDS: CEROVITE ADV FORMULA TAB PO SCH ×2 (08:51→19:59)
[2021-08-15] MEDS: MULTIVITAMIN TAB PO SCH (08:51)
[2021-08-15] MEDS: ASCORBIC ACID 500 MG TAB PO SCH (08:51)
[2021-08-15] MEDS: CHOLECALCIFEROL 1,000 UNITS 25 MCG TAB PO SCH (08:52)
[2021-08-15] MEDS: ATORVASTATIN 10 MG TAB PO SCH (08:52)
--- NOTE | 2021-08-15 15:29 | Orthopedic Progress Note ---
Date of Service August 15, 2021 Assessment & Plan (1) Back pain with radiculopathy: Plan: At this time we will continue to encourage physical therapy as tolerated. We are awaiting acceptance to rehab and hopefully discharge tomorrow. Admission and Anticipated Discharge Date Admission Date: August 10, 2021 Subjective Patient's back pain is controlled leg symptoms are markedly improved Physical Exam Physical Exam: Patient is in the chair at the bedside. His is with him. He demonstrates good strength testing. Appears comfortable. Results & Data ([facility]) Vital Signs (Past 12 Hours) Vital Signs Temp Pulse Resp BP Pulse Ox 08/15/21 08:01 36.6 C 62 16 109/69 93
--- NOTE | 2021-08-15 18:50 | Hospitalist Progress Note ---
Date of Service August 15, 2021 Assessment & Plan (1) Postoperative back pain: Plan: Status post lumbar spinal surgery on 06/27/2021 for neurogenic claudication due to lumbar spinal stenosis Outpatient MRI showed large compressive seroma S/P day #5 evacuation of epidural lumbar seroma. #2 removal of instrumentation. #3 placement of bilateral iliac bolts. #4 bilateral open sacroiliac joint fusions performed by Dr. Mckeon No postop complication Hgb 10.1 Seroma from the procedure showed no growth Continue monitor pain control Continue PT/OT Waiting for placement Hyperglycemia Hba1c 5.4 possible related to steroid Monitor BS GERD (gastroesophageal reflux disease): Continues Protonix Hyperlipidemia: Hold atorvastatin for now- takes every other day resume statin on discharge DVT prophylaxis as per ortho Disposition Waiting for placement Admission and Anticipated Discharge Date Admission Date: August 10, 2021 Subjective Pt was seen and examined for postop follow up/ back pain Lying in bed with no acute distress He said that he does not have any pain he is waiting for placement to rehab Denies any chest pain, palpitation, dizziness and SOB Review of Systems Review of Systems: All systems reviewed & are unremarkable except as noted in Subjective Physical Exam Physical Exam: General- No acute distress Head- atraumatic Eyes- PERRL, EOMI, ENT- oropharynx clear Neck- supple, no JVD Lungs- clear to auscultation Heart- regular rhythm; no murmur Abdomen- normal bowel sounds, soft, nontender Extremities- no calf tenderness Neuro- alert, oriented x 3; PERRL, EOMI; no facial palsy; no dysarthria Skin- warm & dry Results & Data Results & Data ([facility]) Vital Signs (Past 12 Hours) Vital Signs Temp Pulse Resp BP Pulse Ox 08/15/21 15:28 36.5 C 64 16 110/72 94 08/15/21 08:01 36.6 C 62 16 109/69 93
[2021-08-15] MEDS: ACETAMINOPHEN 500 MG TAB PO PRN (19:59)
[2021-08-15] MEDS: DOCUSATE SODIUM/SENNA 50/8.6MG TAB PO SCH (20:00)
[2021-08-16] MEDS: POLYETHYLENE (MIRALAX) 17 GM PACK PO SCH (05:52)
[2021-08-16] MEDS: MULTIVITAMIN TAB PO SCH (08:26)
[2021-08-16] MEDS: ASCORBIC ACID 500 MG TAB PO SCH (08:26)
[2021-08-16] MEDS: CHOLECALCIFEROL 1,000 UNITS 25 MCG TAB PO SCH (08:26)
[2021-08-16] MEDS: TAMSULOSIN HCL 0.4 MG CAP PO SCH (08:27)
[2021-08-16] MEDS: CEROVITE ADV FORMULA TAB PO SCH ×2 (08:27→20:35)
--- NOTE | 2021-08-16 12:59 | Orthopedic Progress Note ---
Date of Service August 16, 2021 Assessment & Plan (1) Seroma after procedure: Plan: Patient is status postevacuation of seroma and fixation of the sacral fracture. He is progressing appropriately with physical therapy and is excellent candidate for rehab. Hopefully he will be accepted tomorrow. We will maintain the drains today most likely discontinue tomorrow. Admission and Anticipated Discharge Date Admission Date: August 10, 2021 Subjective Patient's back pain is improving. Leg pain improving. Still significant numbness to bilateral lower extremity tingling the feet. Physical Exam Physical Exam: Patient is simply the bedside. Is good strength testing. Appears comfortable. Results & Data ([facility]) Vital Signs (Past 12 Hours) Vital Signs Temp Pulse Resp BP Pulse Ox 08/16/21 07:13 36.7 C 98 H 18 130/72 94
[2021-08-16] MEDS: DOCUSATE SODIUM/SENNA 50/8.6MG TAB PO SCH (20:36)
[2021-08-17] MEDS: traMADol HCL 50 MG TABLET PO PRN (00:56)
--- NOTE | 2021-08-17 07:54 | Discharge Summary ---
Date of Service August 17, 2021 Admission HPI Per Admitting Provider Patient is an 81-year-old male who undergone a lumbar decompression fusion from L2-S1 on 06/27/2021. He was seen yesterday in our office with complaints of bilateral leg weakness and uncontrolled pain. He has been unable to ambulate even to get to the bathroom. Pain has been getting progressively worse. In the office an MRI was reviewed revealing a large compressive seroma with possible infection. There also appear to be changes in the L5 vertebral body and the S1 vertebral body consistent with loosening of the hardware and fracture. For this reason he was sent to the emergency room and we have admitted him to the hospital. Principal Diagnosis Postop seroma with sacral fracture Discharge Data Allergies Allergy/AdvReac Type Severity Reaction Status Date / Time No Known Allergies Allergy Verified 07/02/21 11:01 Consultations 08/10/21 15:16 ED Decision to Admit Stat 08/10/21 18:43 Consult Anesthesiology Routine Consult Internal Medicine Routine Procedures Performed Operation Date: 08/11/21 13:25 Actual Procedures p Incision and Drainage Lumbar(Not Applicable) - Todd Mckeon DO s Placement of Iliac Bolts(Not Applicable) - Todd Mckeon DO Ordered Studies 08/11/21 13:25 FL pelvis 1-2V Routine Hospital Course (1) Seroma after procedure: Patient underwent I&D lumbar spine with stabilization of the sacral fracture. Patient tolerated as well as taken orthopedic for postoperative. Postoperative course was steady progression of ability to ambulate improvement of his pain. His DONTE drain decreased probably. Strength steadily improving. Subsequent discharge to rehab. Discharge orders instructions from the chart for further review. Total Time Total Time Spent Total Time Spent (In Minutes): 20 minutes Discharge Plan Discharge Items Patient Disposition: Transfer Inpatient Rehab Fac Reason For Visit: POST OP SEROMA Discharge Diagnosis: Lumbar seroma with fracture of the sacrum Activity: As commented below Non-emergency contact: Primary Care Provider Call non-emergency contact if: you have any medication questions Follow-up/Referrals: Keith Cai [Primary Care Provider] - Diet: Regular Addtl Attending Provider Instructions: ACTIVITY RECOMMENDATIONS: SELF CARE INSTRUCTIONS AFTER THORACIC/LUMBAR FUSIONS 1. You may walk to your tolerance. It is good exercise for your legs and back. Expect some back and intermittent leg aches and pains. 2. You may perform "counter-top" level activities (make a sandwich, zuri with a project, etc.). 3. No bending or lifting of more than 10 pounds or back twisting of any nature (roll like a log when turning in bed). 4. You may ride in a car for 20-30 minutes at a time. No driving until after your first visit with your doctor. 5. Frequent changes of position and restricting sitting to 30 minutes at a time will help limit the amount of back spasms and stiffness you may experience. 6. You may discontinue the use of ambulatory aids (cane, crutches, etc.) once your strength and confidence allow. 7. 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 Do not take a tub bath, sit in a hot tub or go into a swimming pool until after your first recheck in the office. SPECIAL CARE INSTRUCTIONS: VERY IMPORTANT TO READ AND REVIEW A. Your surgical incision has been closed with a cosmetic suture under the skin that will dissolve in about 6 weeks. In 14 days, you can use a pair of clean scissors and cut the suture that is left outside of the skin at the ends of your incision. 1. The small skin tapes can be removed 7 days after surgery if they have not fallen off by that point. 2. You may keep the wound open to air as much as possible to promote healing after post-op day number 5 unless told otherwise by your doctor. 3. If you think the wound looks like it is becoming infected (redness or worsening drainage) and/or you are experiencing fever, chill or worsening back pain and muscle spasms, contact the office so that we may evaluate you as soon as possible. B. Complications are uncommon, but please contact us if you have any signs or symptoms of: 1. wound infection (fever higher than 102.5 degrees F, redness, separation of wound, drainage, or increasing pain from the incision) 2. blood clots in legs (pain, swelling, redness and warmth in legs) 3. urinary tract infection (fever higher than 102.5 degrees F, burning upon urination or increased frequency of urination) 4. nerve problems (inability to walk on your toes or heels, numbness, loss of bowel or bladder control) 5. any other symptoms that concern you C. Please call the office at if you have any concerns or questions about your operation or recovery. D. No smoking! Smoking drastically decreases the chance of a solid fusion. E. Do not take any anti-inflammatory medications (Indocin, Advil, Motrin, Aspirin, Naprosyn, etc.) as these may inhibit the chance of a solid fusion. Tylenol is okay to take for pain. MANAGING PAIN AFTER SPINAL SURGERY 1. Narcotic medication is intended for short-term use and will be provided for surgical pain. Surgical pain usually lasts for a period of 4-6 weeks. Narcotic medication includes Percocet, Vicodin, Darvocet, Tylenol #3 or Lortab. 2. Longer-term pain is more appropriately treated with non-narcotic medication such as Tylenol ES. 3. Muscle spasm is not appropriately treated with narcotics. Muscle relaxers such as Soma, Flexeril or Skelaxin can be used along with Tylenol ES. 4. Remember that we all live with some "aches and pains". This is not unusual or uncommon after an injury or as we get older. a. Back pain is expected and may include muscle spasms for 4 to 6 weeks after surgery. The pain should gradually improve. If the pain worsens for no apparent reason, please contact the office. b. Intermittent leg pain may also be experienced and should not be concerned about unless it worsens for no apparent reason. If so, please contact the office. 5. We will provide appropriate medication within the normal guidelines of their prescribed use. We will also be very cautious and aware of potential abuse and extended duration of patients' medication needs. a. Pain medications are for your comfort and to assist with sleep and rest so that the tissue can heal. They are not provided in order to return to normal activity and should not be used through the day. To do so or worsening pain at night can result from ongoing tissue damage and development of tolerance to the prescribed medicine. 6. Please allow 2-3 days to process refills. Prescriptions will not be mailed but must be picked up at the office. FOLLOW UP VISIT: Keep your scheduled follow-up appointment. Any questions, please call the office at . Pending Studies at Discharge: No Stand-Alone Forms: My [facility] Skilled Items Patient informed of condition?: Yes DNR: No Discharge Level of Care: Acute rehab Communicable Disease: No Discharge Prognosis: Improving Lines: None Urinary Catheter: No Medications and DC Order Prescriptions: New tramadol 50 mg tablet 50 mg PO Q6H PRN (Reason: pain, moderate) Qty: 30 RF: 0 oxycodone 5 mg tablet 5 mg PO Q6H PRN (Reason: pain, severe) Qty: 30 RF: 0 Continued multivitamin Tablet 1 tab PO QAM RF: 0 ascorbic acid (vitamin C) [Vitamin C] 1,000 mg Tablet 1 g PO QAM RF: 0 atorvastatin 10 mg Tablet 5 mg PO Q OTHER DAY RF: 0 pantoprazole 40 mg Tablet,Delayed Release (Dr/Ec) 40 mg PO DAILY PRN (Reason: Acid Reflux) RF: 0 cholecalciferol (vitamin D3) [Vitamin D3] 50 mcg (2,000 unit) Tablet 50 mcg PO QAM RF: 0 PreserVision AREDS-2 250-90-40-1 mg Tablet,Chewable 1 tab PO AMPM RF: 0 tamsulosin 0.4 mg capsule 0.4 mg PO DAILY RF: 0 tramadol 50 mg tablet 50 mg PO Q6H PRN (Reason: pain, moderate) 5 Days Qty: 15 RF: 0 clonazepam 0.5 mg tablet 0.5 mg PO BID PRN (Reason: Anxiety) 5 Days Qty: 10 RF: 0 omega 9-scx-jno-fish oil [Fish Oil] 1,000 mg (120 mg-180 mg) Capsule 1 cap PO QAM RF: 0 oxycodone 5 mg tablet 5 mg PO BID RF: 0 Discharge Orders: Discharge Order (Routine); Ordered 08/17/21 Ordered By: Todd Mckeon Admission Data Admit Date/Time: 08/10/21 16:22 Attending Provider: Todd Mckeon Admit Provider: Todd Mckeon Primary Care Provider: Keith Cai Other Providers: Todd Mckeon ; Florencio Vuong ; Rosalba Springer.
[2021-08-17] MEDS: ASCORBIC ACID 500 MG TAB PO SCH (08:32)
[2021-08-17] MEDS: CEROVITE ADV FORMULA TAB PO SCH (08:32)
[2021-08-17] MEDS: ACETAMINOPHEN 500 MG TAB PO PRN (08:32)
[2021-08-17] MEDS: CHOLECALCIFEROL 1,000 UNITS 25 MCG TAB PO SCH (08:32)
[2021-08-17] MEDS: ATORVASTATIN 10 MG TAB PO SCH (08:33)
[2021-08-17] MEDS: MULTIVITAMIN TAB PO SCH (08:33)
[2021-08-17] MEDS: TAMSULOSIN HCL 0.4 MG CAP PO SCH (08:33)
--- NOTE | 2021-08-22 08:30 | Hospitalist Progress Note ---
Date of Service August 16, 2021 Assessment & Plan (1) Postoperative back pain: Plan: Status post lumbar spinal surgery on 06/27/2021 for neurogenic claudication due to lumbar spinal stenosis Outpatient MRI showed large compressive seroma S/P day #6 evacuation of epidural lumbar seroma. #2 removal of instrumentation. #3 placement of bilateral iliac bolts. #4 bilateral open sacroiliac joint fusions performed by Dr. Mckeon No postop complication Hgb 10.1 stable Seroma from the procedure showed no growth Continue monitor pain control Continue PT/OT Plan to go to rehab today Hyperglycemia Hba1c 5.4 possible related to steroid Monitor BS GERD (gastroesophageal reflux disease): Continues Protonix Hyperlipidemia: Hold atorvastatin for now- takes every other day resume statin on discharge DVT prophylaxis as per ortho Disposition Plan to go to rehab today Admission and Anticipated Discharge Date Admission Date: August 10, 2021 Subjective Pt was seen and examined for postop follow up/ back pain Lying in bed with no acute distress Plan to go to rehab today Denies any chest pain, palpitation, dizziness and SOB Review of Systems Review of Systems: All systems reviewed & are unremarkable except as noted in Subjective Physical Exam Physical Exam: General- No acute distress Head- atraumatic Eyes- PERRL, EOMI, ENT- oropharynx clear Neck- supple, no JVD Lungs- clear to auscultation Heart- regular rhythm; no murmur Abdomen- normal bowel sounds, soft, nontender Extremities- no calf tenderness Neuro- alert, oriented x 3; PERRL, EOMI; no facial palsy; no dysarthria Skin- warm & dry
== END 2021-08-17 13:06 | DRG 460 ==
LOC: ED 13:43 → 3W 16:22